=== PATIENT | female | born 1965 ===

== ENCOUNTER 2018-12-08 10:04 | Outpatient (CLI) | payer BC | END 2018-12-08 10:05 | disposition home or self-care (01) | LOC: C.PAT 10:04 | DX: Z30.2 Encounter for sterilization (principal); R10.2 Pelvic and perineal pain; D21.9 Benign neoplasm of connective and other soft tissue, unspecified ==

== ENCOUNTER 2018-12-16 07:03 | Inpatient (IN) | payer BC ==
[2018-12-08 10:34] VITALS: BMI 42.0
[2018-12-16] MEDS ORDERED: Bupivacaine 0.25% 20 ML INJ IJ ONE ×2 (09:13→15:55)
[2018-12-16] MEDS ORDERED: ceFAZolin 1 gm in NS 2 GM/200 ML BAG IVPB ONE ×2 (09:13→15:03)
[2018-12-16] MEDS ORDERED: Lidocaine/Epinephrine 1% 1:100000 10 ML IJ ONE (09:13)
[2018-12-16] MEDS ORDERED: Propofol 10 mg/ml Inj (20 ML) ONE (10:58)
[2018-12-16] MEDS ORDERED: Midazolam 2 MG/2 ML VIAL ONE ×2 (10:58→18:50)
[2018-12-16] MEDS ORDERED: Neostigmine 1:1000 (1 mg/ml) Inj ONE (16:56)
[2018-12-16] MEDS ORDERED: Lidocaine 2% MPF (5 ml) Inj ONE ×2 (17:31)
[2018-12-16] MEDS ORDERED: BUPIVACAINE 0.125%/0.9% NACL 600 ML IJ ONE (18:00)
[2018-12-16] MEDS ORDERED: Esmolol 100 mg/10ml Inj IV ONE (18:18)
--- NOTE | 2018-12-16 18:51 | PCM.SURG1 ---
Surgeon's Initial Post Op Note - Surgeon's Notes Surgeon: Marline Edwards MD Ladler: Chacha Matos Type of Anesthesia: General Endo Pre-Operative Diagnosis: Pelvic pain, abnormal uterine bleeding, pelvic pressure Operative Findings: Enlarged 20 week size >250gram multifibroid uterus, 12cm myoma 8cm myoma, normal fallopian tubes and ovaries, bladder adhesiosn to lower uteiren segment, extensive multiple omental adnesions to abominla wall, pelvic sidewall adhesions Post-Operative Diagnosis: as above, extenstive pelvic and abdominla wall adhesions, Operation Performed: Total robotic hysterectomy >250m gram multipfiboir, myomecotmy, bilaterla salpingoopherecotmy, lysis of extensive adhesions, bilateral uteral lysis , cystscopy b/l uretral stent placenmetn with IC green Specimen/Specimens Removed: uterus, multiple myomas, cervix, right and left fallopoian tubes and ovaries Estimated Blood Loss: EBL {In ML}: 250 Blood Products Given: N/A Post-Op Condition: Good Date of Surgery/Procedure: 12/16/18 Time of Surgery/Procedure: 11:30
[2018-12-16] MEDS ORDERED: Midazolam 2 MG/2 ML VIAL IVP PRN (19:00)
[2018-12-16] MEDS ORDERED: Propofol 10 mg/ml 1,000 MG/100 ML VIAL IV PRN (19:01)
[2018-12-16] MEDS ORDERED: HYDROmorphone 0.5 mg/0.5 ml ISec IVP PRN (19:04)
[2018-12-16] MEDS: Propofol 10 mg/ml 1,000 MG/100 ML VIAL IV PRN ×2 (19:30→22:47)
--- NOTE | 2018-12-16 20:00 | CP.PCM.CON ---
History of Present Illness - History of Present Illness History of Present Illness: Surgeon: Marline Edwards MD PMD: Emmy Joy MD Reason for consult: Critical care management Chief Comnplaint: Post Op Total Robotic Hysterectomy The Patient was seen and examined in the ICU post surgery. HPI: The hx was obtained from the medical staff and after [id number] of the Laboratory and medical records as the patient was sedated and intubated. This is a 53 years old female with hx of Diabetes Mellitus and uterine fibroids. She had complaints of Pelvic pain and pressure with abnormal uterine bleeding. Because of this she was scheduled for this elective Total Robotic Hysterectomy. The patient was brought to the ICU Intubated and sedated on Propofol. PMH: DM II; HTN; HLD; Cataract; Uterine fibroid; Abnormal uterine bleeding PSH: Ceserian Section SH: Never Smoked, No illegal drug Use; No Alcohol FH: Family hx not obtainable Allergies: NKDA Medication: Reviewed Review of Systems - Review of Systems Systems not reviewed;Unavailable: Intubated Review of Systems: Review of system limited because the patient is intubated and sedated. Past Patient History - Past Medical History & Family History Past Medical History?: Yes - Past Social History Smoking Status: Never Smoked Chewing Tobacco Use: No Cigar Use: No Alcohol: None Drugs: Denies - CARDIAC Hx Cardiac Disorders: Yes Hx Hypercholesterolemia: Yes Hx Hypertension: Yes - PULMONARY Hx Respiratory Disorders: No - NEUROLOGICAL Hx Neurological Disorder: No - HEENT Hx HEENT Problems: Yes Hx Cataracts: Yes (RIGHT EYE) - RENAL Hx Chronic Kidney Disease: No - ENDOCRINE/METABOLIC Hx Endocrine Disorders: Yes Hx Diabetes Mellitus Type 2: Yes - HEMATOLOGICAL/ONCOLOGICAL Hx Blood Disorders: No - INTEGUMENTARY Hx Dermatological Problems: No - MUSCULOSKELETAL/RHEUMATOLOGICAL Hx Musculoskeletal Disorders: No - GASTROINTESTINAL Hx Gastrointestinal Disorders: No - GENITOURINARY/GYNECOLOGICAL Hx Genitourinary Disorders: Yes Other/Comment: HX: FIBROID UTERUS - PSYCHIATRIC Hx Psychophysiologic Disorder: No - SURGICAL HISTORY Hx Surgeries: Yes Hx Section: Yes - ANESTHESIA Hx Anesthesia: Yes Hx Anesthesia Reactions: No Hx Malignant Hyperthermia: No Has any member of the family had a problem w/ anesthesia?: No Meds Allergies/Adverse Reactions: Allergies Allergy/AdvReac Type Severity Reaction Status Date / Time No Known Allergies Allergy Unverified 12/08/18 10:33 - Medications Medications: Current Medications Hydromorphone HCl (Dilaudid) 0.5 mg IVP Q5M PRN PRN Reason: Pain, severe (8-10) Stop: 12/16/18 21:04 BUPIVACAINE 0.125%/0.9% NACL (Bupivacaine-Ns 0.125% On-Q Supercharge Repair Supervisor) 600 mls @ 4 mls/hr IJ ONCE ONE Stop: 12/22/18 23:59 Propofol (Diprivan) 1,000 mg in 100 mls @ 2.83 mls/hr IV .Q24H PRN; Protocol PRN Reason: TITRATE PER MD ORDER Midazolam HCl (Versed Inj) 2 mg IVP ONCE PRN PRN Reason: Agitation/Restlessness Last Admin: 12/16/18 19:15 Dose: 2 mg Physical Exam - Constitutional Additional comments: Intubated and sedated. - Head Exam Head Exam: ATRAUMATIC, NORMAL INSPECTION, NORMOCEPHALIC - Eye Exam Additional comments: Pupils equal and reacting to light - ENT Exam ENT Exam: Mucous Membranes Moist, Normal External Ear Exam - Neck Exam Neck exam: Positive for: Full Rom, Normal Inspection. Negative for: Lymphadenopathy - Respiratory Exam Respiratory Exam: Clear to Auscultation Bilateral. absent: Rales, Rhonchi, Wheezes - Cardiovascular Exam Cardiovascular Exam: REGULAR RHYTHM, RRR, +S1, +S2. absent: Gallop, JVD - GI/Abdominal Exam GI & Abdominal Exam: Hypoactive Bowel Sounds, Soft Additional comments: Surgical site at mid pelvis, clean and dry. - Rectal Exam Rectal Exam: Deferred - Extremities Exam Extremities exam: Positive for: normal inspection. Negative for: pedal edema - Back Exam Back exam: NORMAL INSPECTION - Neurological Exam Additional comments: Sedated. No facial droop, moves both upper extremities when sedation low, - Psychiatric Exam Additional comments: Sedated, Intubated. - Skin Skin Exam: Intact, Normal Color, Warm Results - Vital Signs Recent Vital Signs: Last Vital Signs Temp 97.7 F 12/16/18 18:57 Pulse 86 12/16/18 18:57 Resp 15 12/16/18 18:57 BP 94/41 L 12/16/18 18:57 Pulse Ox 97 12/16/18 18:57 - Labs Result Diagrams: 12/16/18 19:56 12/16/18 19:56 Labs: Laboratory Results - last 24 hr 12/16/18 12/16/18 07:34 09:03 POC Glucose (mg/dL) 233 H Blood Type O POSITIVE Antibody Screen Negative - Imaging and Cardiology Chest x-ray Status: Image reviewed by me Additional comment: ET above leo Mild congestion Assessment & Plan - Assessment and Plan (Free Text) Plan: 53 years old female with hx of Diabetes Mellitus and uterine fibroids. She had complaints of Pelvic pain and pressure with abnormal uterine bleeding. Because of this she was scheduled for this elective Total Robotic Hysterectomy. #. Uterine Fibroid Operation Performed: Total robotic hysterectomy >250m gram multifibroid, myomecotmy, bilaterla salpingoopherecotmy, lysis of extensive adhesions, bilateral uteral lysis , cystscopy b/l uretral stent placement with IC katerine - Surgeon Marline Lindquist MD - Surgical management - Pain management with Fentanyl #. Respiratory Failure. Anesthesia wants patient to remain on the Ventilator because of the prolonged surgery - Vent Settings TV 400/ Rate of 12 / FiO2 of 60% and PEEP of 5 - Propofol for sedation - Follow ABG #. DM II with hyperglycemia - Lantus 20uts HS - Lispro insulin sliding scale according to accucheck #. HTN - Hold Amlodipine #. DVT Prophylaxis> SCD - Start Lovenox on 12/17/18 #. Code Status: Full - Date & Time Date: 12/16/18 Time: 20:00
[2018-12-16 20:09] LABS: BASO # 0.1 K/uL (0.0-0.2); BASO % 0.6 % (0.0-2.0); EOS % 0.2 % (0.0-4.0); HEMOGLOBIN 11.9 g/dL (11.0-16.0); LYMPH # 1.2 K/uL (1.0-4.3); MEAN CELL VOLUME 91.9 fL (81.0-99.0); MEAN CORPUSCULAR HEMOGLOBIN 29.8 pg (27.0-31.0); MEAN CORPUSCULAR HGB CONC 32.4 g/dL (33.0-37.0); MEAN PLATELET VOLUME 10.1 fL (7.2-11.7); MONO # 0.9 K/uL (0.0-0.8); MONO % 6.4 % (0.0-10.0); NEUT # 11.8 K/uL (1.8-7.0); RED CELL DISTRIBUTION WIDTH 14.3 % (11.5-14.5)
[2018-12-16 20:31] LABS: NEUT % 82.8 % (50.0-75.0)
[2018-12-16 20:35] LABS: ALB/GLOB RATIO 1.1 (1.0-2.1); ALBUMIN 2.7 g/dL (3.5-5.0); ALT/SGPT 19 U/L (9-52); AST/SGOT 22 U/L (14-36); BLOOD UREA NITROGEN 16 mg/dL (7-17); CALCIUM 7.8 mg/dl (8.6-10.4); GFR NON-AFRICAN AMERICAN 52
[2018-12-16] MEDS ORDERED: Midazolam 2 MG/2 ML VIAL IVP STA (20:47)
[2018-12-16] MEDS: (Lantus) Insulin Glargine, Recombinant SC SCH ×2 (20:56→23:10)
[2018-12-16] MEDS: Lactated Ringer's 1,000 ML IV SCH (21:54)
[2018-12-16] MEDS: Magnesium Sulfate 1 gm in D5W 1 GM/100 ML BAG IVPB SCH ×2 (21:59→22:29)
[2018-12-16 22:38] LABS: ARTERIAL BLOOD GAS HCO3 22.5 mmol/L (21-28); ARTERIAL BLOOD GAS O2 SAT 99.2 % (95-98); ARTERIAL BLOOD GAS PCO2 43 mm/Hg (35-45); ARTERIAL BLOOD GAS PH 7.33 (7.35-7.45); ARTERIAL BLOOD GAS PO2 132 mm/Hg (80-100)
[2018-12-16] MEDS ORDERED: (Novolog) Insulin Aspart, Recombinant 100 u/ml 10 ml vial SC STA (23:45)
[2018-12-17] MEDS: (Novolog) Insulin Aspart, Recombinant 100 u/ml 10 ml vial SC SCH ×4 (00:13→17:54)
[2018-12-17] MEDS: Propofol 10 mg/ml 1,000 MG/100 ML VIAL IV PRN (02:45)
[2018-12-17 05:39] LABS: ABG ALLEN TEST POS; ARTERIAL BLOOD GAS HCO3 21.7 mmol/L (21-28); ARTERIAL BLOOD GAS HEMOGLOBIN 12.5 g/dL (11.7-17.4); ARTERIAL BLOOD GAS O2 SAT 99.6 % (95-98); ARTERIAL BLOOD GAS PCO2 41 mm/Hg (35-45); ARTERIAL BLOOD GAS PH 7.33 (7.35-7.45); ARTERIAL BLOOD GAS PO2 218 mm/Hg (80-100); ARTERIAL BLOOD GAS TCO2 22.9 mmol/L (22-28)
[2018-12-17 06:21] LABS: BASO % 0.2 % (0.0-2.0); LYMPH # 1.3 K/uL (1.0-4.3); LYMPH % 10.6 % (20.0-40.0); MEAN CELL VOLUME 91.2 fL (81.0-99.0); MEAN CORPUSCULAR HGB CONC 32.9 g/dL (33.0-37.0); MEAN PLATELET VOLUME 10.3 fL (7.2-11.7); MONO % 8.8 % (0.0-10.0); NEUT # 9.6 K/uL (1.8-7.0); NEUT % 80.4 % (50.0-75.0); RBC 3.66 Mil/uL (3.80-5.20); RED CELL DISTRIBUTION WIDTH 14.5 % (11.5-14.5); WHITE BLOOD COUNT 11.9 K/uL (4.8-10.8)
[2018-12-17 07:02] LABS: ALB/GLOB RATIO 1.1 (1.0-2.1); ALBUMIN 2.5 g/dL (3.5-5.0); CALCIUM 7.4 mg/dl (8.6-10.4)
[2018-12-17] MEDS ORDERED: Sodium Chloride 0.9% 500 ML IV ONE ×2 (07:42→10:38)
--- NOTE | 2018-12-17 08:27 | RAD ---
Date of service: 12/16/2018 HISTORY: pt is intubated COMPARISON: No prior. TECHNIQUE: 1 view obtained. FINDINGS: In situ ETT, tip of which lies approximately 2.4 cm above leo. LUNGS: Poor inspiration with low lung volumes, crowded bronchovascular markings and mild bibasilar atelectasis. PLEURA: No significant pleural effusion identified, no pneumothorax apparent. CARDIOVASCULAR: No aortic atherosclerotic calcification present. Heart is mildly enlarged. No pulmonary vascular congestion. OSSEOUS STRUCTURES: Mild multilevel degenerative spondylosis of the thoracic spine. VISUALIZED UPPER ABDOMEN: Normal. OTHER FINDINGS: None. IMPRESSION: In situ ETT as above. Poor inspiration with low lung volumes, crowded bronchovascular markings and mild bibasilar atelectasis.
--- NOTE | 2018-12-17 08:54 | CP.PCM.PN ---
Subjective - Date & Time of Evaluation Date of Evaluation: 12/17/18 Time of Evaluation: 08:00 - Subjective Subjective: pt seen and examined +intubation, awake, alert. patient partner at bedise. pt with dereasing vent settings overnight. Pt has no complaints or expresses discomoort ath this time Objective - Vital Signs/Intake and Output Vital Signs (last 24 hours): Temp Pulse Resp BP Pulse Ox 98.7 F 110 H 11 L 97/49 L 100 12/17/18 08:00 12/17/18 08:00 12/17/18 08:00 12/17/18 08:00 12/17/18 08:00 Intake and Output: 12/17/18 12/17/18 06:59 18:59 Intake Total 1883.2 456.8 Output Total 675 15 Balance 1208.2 441.8 - Medications Medications: Current Medications BUPIVACAINE 0.125%/0.9% NACL (Bupivacaine-Ns 0.125% On-Q Heel Dipper) 600 mls @ 4 mls/hr IJ ONCE ONE Stop: 12/22/18 23:59 Last Admin: 12/16/18 20:47 Dose: Not Given Propofol (Diprivan) 1,000 mg in 100 mls @ 2.83 mls/hr IV .Q24H PRN; Protocol PRN Reason: TITRATE PER MD ORDER Last Titration: 12/17/18 08:15 Dose: 0 mcg/kg/min, 0 mls/hr Fentanyl Citrate 2,500 mcg/ (Sodium Chloride) 250 mls @ 18.87 mls/hr IV .[id number] CLAUDE; Protocol Last Titration: 12/17/18 08:41 Dose: 0 mcg/kg/hr, 0 mls/hr Lactated Ringer's (Lactated Ringer's) 1,000 mls @ 100 mls/hr IV .Q10H CLAUDE Stop: 12/17/18 17:44 Last Admin: 12/16/18 21:54 Dose: 100 mls/hr Insulin Aspart (Novolog) 0 unit SC Q6 CLAUDE; Protocol Last Admin: 12/17/18 05:51 Dose: 6 u Insulin Glargine (Lantus) 20 unit SC HS CLAUDE Last Admin: 12/16/18 23:10 Dose: Not Given Midazolam HCl (Versed Inj) 2 mg IVP ONCE PRN PRN Reason: Agitation/Restlessness Last Admin: 12/16/18 19:15 Dose: 2 mg - Labs Labs: 12/17/18 06:15 12/17/18 06:15 - Constitutional Appears: Well, Non-toxic - Head Exam Head Exam: ATRAUMATIC, NORMAL INSPECTION - Eye Exam Eye Exam: EOMI, Normal appearance - ENT Exam ENT Exam: Mucous Membranes Dry - Neck Exam Neck Exam: Full ROM - Respiratory Exam Respiratory Exam: Clear to Ausculation Bilateral, NORMAL BREATHING PATTERN Additional comments: +INTUBATION - Cardiovascular Exam Cardiovascular Exam: REGULAR RHYTHM, +S1, +S2 - GI/Abdominal Exam GI & Abdominal Exam: Soft, Normal Bowel Sounds Additional comments: obese, non tender, no guarding., rebound tenderness, no rigidty incisionc c/d/i +on que pump in place c//di +harley no vaginal bleeding - Extremities Exam Additional comments: +edema non tender, negative calf tendnerss, - Neurological Exam Neurological Exam: Alert, Awake - Psychiatric Exam Psychiatric exam: Normal Affect, Normal Mood - Skin Skin Exam: Dry, Intact, Normal Color Assessment and Plan (1) History of robot-assisted laparoscopic hysterectomy Assessment & Plan: 53 y/o s/p TRH BSO NANCY POD #1 in ICU -Respiratory status: +Intubation status managment as per ICU -DM: Meds as per ICU -HTN: As per ICU -DVT prophylaxis -Post Op Managment: consider dc harley,when extubated/stable consider ambulation of out bed, diet -Labs as per ICU Thank you for participating in the care of my patient. Please feel free to call me directly in any questions or concerns on my cell: [phone] Status: Acute (2) Diabetes Status: Acute (3) Hypertension Status: Acute (4) Endotracheally intubated Status: Acute
[2018-12-17] MEDS: Lactated Ringer's 1,000 ML IV SCH ×2 (09:42→22:34)
[2018-12-17] MEDS ORDERED: Albumin Human 5% (12.5 gm/250 ml) IV ONE (11:00)
--- NOTE | 2018-12-17 12:39 | US ---
Date of service: 12/17/2018 PROCEDURE: Ultrasound of the Kidneys HISTORY: s/p ureral stent ,rule out uretral obstruction COMPARISON: None available. TECHNIQUE: Sonogram of the kidneys. FINDINGS: RIGHT KIDNEY: Measures: 12.1 cm. Normal in size, contour and echogenicity. No stone, solid mass lesion or hydronephrosis visualized. LEFT KIDNEY: Measures: 11.9 cm. Normal in size, contour and echogenicity. No stone, solid mass lesion or hydronephrosis visualized. OTHER FINDINGS: None. IMPRESSION: No hydronephrosis or nephrolithiasis.
--- NOTE | 2018-12-17 15:20 | CP.CCUPN ---
<Doris Johnson - Last Filed: 12/17/18 15:08> CCU Subjective - Physician Review Subjective (Free Text): Overnight events noted Pt seen and examined this morning with Dr. Wynne. Intubated on MV with FIO2 60% Breathing does not appeared labored. Alert, following commands. Denies any pain or discomfort. Noted to have billious vomiting, NG tube placed. Critical Care Time Spent (in minutes): 35 CCU Objective - Vital Signs / Intake & Output Vital Signs (Last 4 hours): Vital Signs Temp Pulse Resp BP Pulse Ox 12/17/18 06:26 98 H 9 L 83/34 L 100 12/17/18 06:15 98 H 10 L 81/47 L 100 12/17/18 06:11 98 H 9 L 84/42 L 99 12/17/18 06:01 97 H 10 L 100 12/17/18 06:00 96 H 10 L 100 12/17/18 05:00 97 H 16 115/52 L 12/17/18 04:00 98.2 F 97 H 12 105/50 L 93 L Intake and Output (Last 8hrs): Intake & Output 12/16/18 12/17/18 12/17/18 22:59 06:59 14:59 Intake Total 931.9 1651.3 10 Output Total 350 325 Balance 581.9 1326.3 10 Weight 220 lb 3 oz Intake: IV 700 330 10 Intake, IV Amount 231.9 1321.3 Left Hand 74.1 199.5 Left Wrist 37.8 141.8 NQ 20 80 Right Hand 100 900 Output: Urine 350 325 Urethral (Joyce) 200 325 Other: Voiding Method Indwelling Catheter # Bowel Movements 0 0 - Physical Exam Head: Positive for: Atraumatic Pupils: Positive for: PERRL Extroacular Muscles: Positive for: EOMI Conjunctiva: Positive for: Normal Mouth: Positive for: Moist Mucous Membranes Respiratory/Chest: Positive for: Clear to Auscultation. Negative for: Respiratory Distress, Wheezes, Rales Cardiovascular: Positive for: Regular Rate and Rhythm. Negative for: Murmurs Abdomen: Positive for: Normal Bowel Sounds, Other (Surgical incision sites covered with gauze- clean, dry and intact. Mild tenderness w/o peritoneal signs. ) Lower Extremity: Positive for: Normal Inspection, NORMAL PULSES, Capillary Refill < 2 s. 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 12/22/18 23:59 Not Given ONCE ONE Propofol 1,000 mg in 100 mls @ 2.83 mls/hr 12/16/18 19:07 12/17/18 07:45 Diprivan IV 15.19 mcg/kg/min .Q24H PRN 8.6 mls/hr TITRATE PER MD ORDER Titration Protocol 5 MCG/KG/MIN Fentanyl Citrate 2,500 mcg/ 250 mls @ 18.87 mls/hr 12/16/18 20:45 12/17/18 06:33 Sodium Chloride IV 1 mcg/kg/hr .[id number] CLAUDE 9.5 mls/hr Titration Protocol 2 MCG/KG/HR Lactated Ringer's 1,000 mls @ 100 mls/hr 12/16/18 21:45 12/16/18 21:54 Lactated Ringer's IV 12/17/18 17:44 100 mls/hr .Q10H CLAUDE Administration Sodium Chloride 500 mls @ 1,000 mls/hr 12/17/18 07:42 Sodium Chloride 0.9% IV 12/17/18 08:11 .Q30M ONE Insulin Aspart 0 unit 12/17/18 00:00 12/17/18 05:51 Novolog SC 6 u Q6 CLAUDE Administration Protocol Insulin Glargine 20 unit 12/16/18 20:45 12/16/18 23:10 Lantus SC Not Given HS CLAUDE Midazolam HCl 2 mg 12/16/18 19:00 12/16/18 19:15 Versed Inj IVP 2 mg ONCE PRN Administration Agitation/Restlessness - Patient Studies Lab Studies: Lab Studies 12/17/18 12/17/18 12/17/18 Range/Units 06:15 06:15 05:24 WBC 11.9 H (4.8-10.8) K/uL RBC 3.66 L (3.80-5.20) Mil/uL Hgb 11.0 (11.0-16.0) g/dL Hct 33.4 L (34.0-47.0) % MCV 91.2 (81.0-99.0) fL MCH 30.0 (27.0-31.0) pg MCHC 32.9 L (33.0-37.0) g/dL RDW 14.5 (11.5-14.5) % Plt Count 291 (130-400) K/uL MPV 10.3 (7.2-11.7) fL Neut % (Auto) 80.4 H (50.0-75.0) % Lymph % (Auto) 10.6 L (20.0-40.0) % [place] % (Auto) 8.8 (0.0-10.0) % Eos % (Auto) 0.0 (0.0-4.0) % Baso % (Auto) 0.2 (0.0-2.0) % Neut # (Auto) 9.6 H (1.8-7.0) K/uL Lymph # (Auto) 1.3 (1.0-4.3) K/uL [place] # (Auto) 1.0 H (0.0-0.8) K/uL Eos # (Auto) 0.0 (0.0-0.7) K/uL Baso # (Auto) 0.0 (0.0-0.2) K/uL Puncture Site Rr pCO2 41 (35-45) mm/Hg pO2 218 H (80-100) mm/Hg HCO3 21.7 (21-28) mmol/L ABG pH 7.33 L (7.35-7.45) ABG Total CO2 22.9 (22-28) mmol/L ABG O2 Saturation 99.6 H (95-98) % ABG Base Excess -4.1 L (-2.0-3.0) mmol/L ABG Hemoglobin 12.5 (11.7-17.4) g/dL ABG Carboxyhemoglobin 1.4 (0.5-1.5) % POC ABG HHb (Measured) 0.4 (0.0-5.0) % ABG Methemoglobin 0.9 (0.0-3.0) % Hi Test Pos ABG Potassium (3.6-5.2) mmol/L A-a O2 Difference 159.0 mm/Hg Respiratory Index 0.7 Hgb O2 Saturation 97.2 (95.0-98.0) % Glucose (65-105) mg/dl Lactate (0.7-2.1) mmol/L Vent Mode Prvc Mechanical Rate 12 FiO2 60.0 % Tidal Volume 450 PEEP 5 Crit Value Called To Crit Value Called By Crit Value Read Back Blood Gas Notified Time Sodium 131 L (132-148) mmol/L Potassium 4.4 (3.6-5.2) mmol/L Chloride 103 (98-107) mmol/L Carbon Dioxide 21 L (22-30) mmol/L Anion Gap 11 (10-20) BUN 20 H (7-17) mg/dL Creatinine 1.6 H (0.7-1.2) mg/dL Est GFR ( Amer) 41 Est GFR (Non-Af Amer) 34 POC Glucose (mg/dL) (65-110) mg/dL Random Glucose 298 H D (65-105) mg/dL Calcium 7.4 L (8.6-10.4) mg/dl Phosphorus 3.8 (2.5-4.5) mg/dL Magnesium 2.1 (1.6-2.3) mg/dL Total Bilirubin 0.2 (0.2-1.3) mg/dL AST 21 (14-36) U/L ALT 13 (9-52) U/L Alkaline Phosphatase 68 (38-126) U/L Total Creatine Kinase (30-135) U/L Total Protein 4.8 L (6.3-8.3) g/dL Albumin 2.5 L (3.5-5.0) g/dL Globulin 2.3 (2.2-3.9) gm/dL Albumin/Globulin Ratio 1.1 (1.0-2.1) Arterial Blood Potassium (3.6-5.2) mmol/L Blood Type Antibody Screen 12/17/18 12/17/18 12/16/18 Range/Units 05:14 00:06 22:24 WBC (4.8-10.8) K/uL RBC (3.80-5.20) Mil/uL Hgb (11.0-16.0) g/dL Hct (34.0-47.0) % MCV (81.0-99.0) fL MCH (27.0-31.0) pg MCHC (33.0-37.0) g/dL RDW (11.5-14.5) % Plt Count (130-400) K/uL MPV (7.2-11.7) fL Neut % (Auto) (50.0-75.0) % Lymph % (Auto) (20.0-40.0) % [place] % (Auto) (0.0-10.0) % Eos % (Auto) (0.0-4.0) % Baso % (Auto) (0.0-2.0) % Neut # (Auto) (1.8-7.0) K/uL Lymph # (Auto) (1.0-4.3) K/uL [place] # (Auto) (0.0-0.8) K/uL Eos # (Auto) (0.0-0.7) K/uL Baso # (Auto) (0.0-0.2) K/uL Puncture Site Rra pCO2 43 (35-45) mm/Hg pO2 132 H (80-100) mm/Hg HCO3 22.5 (21-28) mmol/L ABG pH 7.33 L (7.35-7.45) ABG Total CO2 24.0 (22-28) mmol/L ABG O2 Saturation 99.2 H (95-98) % ABG Base Excess -3.2 L (-2.0-3.0) mmol/L ABG Hemoglobin (11.7-17.4) g/dL ABG Carboxyhemoglobin (0.5-1.5) % POC ABG HHb (Measured) (0.0-5.0) % ABG Methemoglobin (0.0-3.0) % Hi Test Na ABG Potassium 4.4 (3.6-5.2) mmol/L A-a O2 Difference 242.0 mm/Hg Respiratory Index 1.8 Hgb O2 Saturation (95.0-98.0) % Glucose 432 H* (65-105) mg/dl Lactate 1.8 (0.7-2.1) mmol/L Vent Mode Prvc Mechanical Rate 12 FiO2 60.0 % Tidal Volume 450 PEEP 5 Crit Value Called To Dr hayward icu Crit Value Called By Carmel Crit Value Read Back Y Blood Gas Notified Time 2238 Sodium 136.0 (132-148) mmol/L Potassium (3.6-5.2) mmol/L Chloride 105.0 (98-107) mmol/L Carbon Dioxide (22-30) mmol/L Anion Gap (10-20) BUN (7-17) mg/dL Creatinine (0.7-1.2) mg/dL Est GFR ( Amer) Est GFR (Non-Af Amer) POC Glucose (mg/dL) 338 H 443 H* (65-110) mg/dL Random Glucose (65-105) mg/dL Calcium (8.6-10.4) mg/dl Phosphorus (2.5-4.5) mg/dL Magnesium (1.6-2.3) mg/dL Total Bilirubin (0.2-1.3) mg/dL AST (14-36) U/L ALT (9-52) U/L Alkaline Phosphatase (38-126) U/L Total Creatine Kinase (30-135) U/L Total Protein (6.3-8.3) g/dL Albumin (3.5-5.0) g/dL Globulin (2.2-3.9) gm/dL Albumin/Globulin Ratio (1.0-2.1) Arterial Blood Potassium 4.4 (3.6-5.2) mmol/L Blood Type Antibody Screen 12/16/18 12/16/18 12/16/18 Range/Units 19:56 19:56 19:56 WBC 14.0 H D (4.8-10.8) K/uL RBC 4.00 (3.80-5.20) Mil/uL Hgb 11.9 (11.0-16.0) g/dL Hct 36.8 (34.0-47.0) % MCV 91.9 D (81.0-99.0) fL MCH 29.8 (27.0-31.0) pg MCHC 32.4 L (33.0-37.0) g/dL RDW 14.3 (11.5-14.5) % Plt Count 308 (130-400) K/uL MPV 10.1 (7.2-11.7) fL Neut % (Auto) 82.8 H (50.0-75.0) % Lymph % (Auto) 10.0 L (20.0-40.0) % [place] % (Auto) 6.4 (0.0-10.0) % Eos % (Auto) 0.2 (0.0-4.0) % Baso % (Auto) 0.6 (0.0-2.0) % Neut # (Auto) 11.8 H (1.8-7.0) K/uL Lymph # (Auto) 1.2 (1.0-4.3) K/uL [place] # (Auto) 0.9 H (0.0-0.8) K/uL Eos # (Auto) 0.0 (0.0-0.7) K/uL Baso # (Auto) 0.1 (0.0-0.2) K/uL Puncture Site pCO2 (35-45) mm/Hg pO2 (80-100) mm/Hg HCO3 (21-28) mmol/L ABG pH (7.35-7.45) ABG Total CO2 (22-28) mmol/L ABG O2 Saturation (95-98) % ABG Base Excess (-2.0-3.0) mmol/L ABG Hemoglobin (11.7-17.4) g/dL ABG Carboxyhemoglobin (0.5-1.5) % POC ABG HHb (Measured) (0.0-5.0) % ABG Methemoglobin (0.0-3.0) % Hi Test ABG Potassium (3.6-5.2) mmol/L A-a O2 Difference mm/Hg Respiratory Index Hgb O2 Saturation (95.0-98.0) % Glucose (65-105) mg/dl Lactate (0.7-2.1) mmol/L Vent Mode Mechanical Rate FiO2 % Tidal Volume PEEP Crit Value Called To Crit Value Called By Crit Value Read Back Blood Gas Notified Time Sodium 133 (132-148) mmol/L Potassium 4.4 (3.6-5.2) mmol/L Chloride 104 (98-107) mmol/L Carbon Dioxide 20 L (22-30) mmol/L Anion Gap 13 (10-20) BUN 16 (7-17) mg/dL Creatinine 1.1 (0.7-1.2) mg/dL Est GFR ( Amer) > 60 Est GFR (Non-Af Amer) 52 POC Glucose (mg/dL) (65-110) mg/dL Random Glucose 441 H* D (65-105) mg/dL Calcium 7.8 L (8.6-10.4) mg/dl Phosphorus 4.3 (2.5-4.5) mg/dL Magnesium 1.4 L (1.6-2.3) mg/dL Total Bilirubin 0.2 (0.2-1.3) mg/dL AST 22 (14-36) U/L ALT 19 (9-52) U/L Alkaline Phosphatase 83 (38-126) U/L Total Creatine Kinase 156 H (30-135) U/L Total Protein 5.1 L (6.3-8.3) g/dL Albumin 2.7 L (3.5-5.0) g/dL Globulin 2.4 (2.2-3.9) gm/dL Albumin/Globulin Ratio 1.1 (1.0-2.1) Arterial Blood Potassium (3.6-5.2) mmol/L Blood Type Antibody Screen 12/16/18 Range/Units 09:03 WBC (4.8-10.8) K/uL RBC (3.80-5.20) Mil/uL Hgb (11.0-16.0) g/dL Hct (34.0-47.0) % MCV (81.0-99.0) fL MCH (27.0-31.0) pg MCHC (33.0-37.0) g/dL RDW (11.5-14.5) % Plt Count (130-400) K/uL MPV (7.2-11.7) fL Neut % (Auto) (50.0-75.0) % Lymph % (Auto) (20.0-40.0) % [place] % (Auto) (0.0-10.0) % Eos % (Auto) (0.0-4.0) % Baso % (Auto) (0.0-2.0) % Neut # (Auto) (1.8-7.0) K/uL Lymph # (Auto) (1.0-4.3) K/uL [place] # (Auto) (0.0-0.8) K/uL Eos # (Auto) (0.0-0.7) K/uL Baso # (Auto) (0.0-0.2) K/uL Puncture Site pCO2 (35-45) mm/Hg pO2 (80-100) mm/Hg HCO3 (21-28) mmol/L ABG pH (7.35-7.45) ABG Total CO2 (22-28) mmol/L ABG O2 Saturation (95-98) % ABG Base Excess (-2.0-3.0) mmol/L ABG Hemoglobin (11.7-17.4) g/dL ABG Carboxyhemoglobin (0.5-1.5) % POC ABG HHb (Measured) (0.0-5.0) % ABG Methemoglobin (0.0-3.0) % Hi Test ABG Potassium (3.6-5.2) mmol/L A-a O2 Difference mm/Hg Respiratory Index Hgb O2 Saturation (95.0-98.0) % Glucose (65-105) mg/dl Lactate (0.7-2.1) mmol/L Vent Mode Mechanical Rate FiO2 % Tidal Volume PEEP Crit Value Called To Crit Value Called By Crit Value Read Back Blood Gas Notified Time Sodium (132-148) mmol/L Potassium (3.6-5.2) mmol/L Chloride (98-107) mmol/L Carbon Dioxide (22-30) mmol/L Anion Gap (10-20) BUN (7-17) mg/dL Creatinine (0.7-1.2) mg/dL Est GFR ( Amer) Est GFR (Non-Af Amer) POC Glucose (mg/dL) (65-110) mg/dL Random Glucose (65-105) mg/dL Calcium (8.6-10.4) mg/dl Phosphorus (2.5-4.5) mg/dL Magnesium (1.6-2.3) mg/dL Total Bilirubin (0.2-1.3) mg/dL AST (14-36) U/L ALT (9-52) U/L Alkaline Phosphatase (38-126) U/L Total Creatine Kinase (30-135) U/L Total Protein (6.3-8.3) g/dL Albumin (3.5-5.0) g/dL Globulin (2.2-3.9) gm/dL Albumin/Globulin Ratio (1.0-2.1) Arterial Blood Potassium (3.6-5.2) mmol/L Blood Type O POSITIVE Antibody Screen Negative Laboratory Results - last 24 hr 12/16/18 12/16/18 12/16/18 09:03 19:56 19:56 WBC RBC Hgb Hct MCV MCH MCHC RDW Plt Count MPV Neut % (Auto) Lymph % (Auto) [place] % (Auto) Eos % (Auto) Baso % (Auto) Neut # (Auto) Lymph # (Auto) [place] # (Auto) Eos # (Auto) Baso # (Auto) Puncture Site pCO2 pO2 HCO3 ABG pH ABG Total CO2 ABG O2 Saturation ABG Base Excess ABG Hemoglobin ABG Carboxyhemoglobin POC ABG HHb (Measured) ABG Methemoglobin Hi Test ABG Potassium A-a O2 Difference Respiratory Index Hgb O2 Saturation Glucose Lactate Vent Mode Mechanical Rate FiO2 Tidal Volume PEEP Crit Value Called To Crit Value Called By Crit Value Read Back Blood Gas Notified Time Sodium 133 Potassium 4.4 Chloride 104 Carbon Dioxide 20 L Anion Gap 13 BUN 16 Creatinine 1.1 Est GFR ( Amer) > 60 Est GFR (Non-Af Amer) 52 POC Glucose (mg/dL) Random Glucose 441 H* D Calcium 7.8 L Phosphorus 4.3 Magnesium 1.4 L Total Bilirubin 0.2 AST 22 ALT 19 Alkaline Phosphatase 83 Total Creatine Kinase 156 H Total Protein 5.1 L Albumin 2.7 L Globulin 2.4 Albumin/Globulin Ratio 1.1 Arterial Blood Potassium Blood Type O POSITIVE Antibody Screen Negative 12/16/18 12/16/18 12/17/18 19:56 22:24 00:06 WBC 14.0 H D RBC 4.00 Hgb 11.9 Hct 36.8 MCV 91.9 D MCH 29.8 MCHC 32.4 L RDW 14.3 Plt Count 308 MPV 10.1 Neut % (Auto) 82.8 H Lymph % (Auto) 10.0 L [place] % (Auto) 6.4 Eos % (Auto) 0.2 Baso % (Auto) 0.6 Neut # (Auto) 11.8 H Lymph # (Auto) 1.2 [place] # (Auto) 0.9 H Eos # (Auto) 0.0 Baso # (Auto) 0.1 Puncture Site Rra pCO2 43 pO2 132 H HCO3 22.5 ABG pH 7.33 L ABG Total CO2 24.0 ABG O2 Saturation 99.2 H ABG Base Excess -3.2 L ABG Hemoglobin ABG Carboxyhemoglobin POC ABG HHb (Measured) ABG Methemoglobin Hi Test Na ABG Potassium 4.4 A-a O2 Difference 242.0 Respiratory Index 1.8 Hgb O2 Saturation Glucose 432 H* Lactate 1.8 Vent Mode Prvc Mechanical Rate 12 FiO2 60.0 Tidal Volume 450 PEEP 5 Crit Value Called To Dr hayward icu Crit Value Called By Carmel Crit Value Read Back Y Blood Gas Notified Time 2237 Sodium 136.0 Potassium Chloride 105.0 Carbon Dioxide Anion Gap BUN Creatinine Est GFR ( Amer) Est GFR (Non-Af Amer) POC Glucose (mg/dL) 443 H* Random Glucose Calcium Phosphorus Magnesium Total Bilirubin AST ALT Alkaline Phosphatase Total Creatine Kinase Total Protein Albumin Globulin Albumin/Globulin Ratio Arterial Blood Potassium 4.4 Blood Type Antibody Screen 12/17/18 12/17/18 12/17/18 05:14 05:24 06:15 WBC 11.9 H RBC 3.66 L Hgb 11.0 Hct 33.4 L MCV 91.2 MCH 30.0 MCHC 32.9 L RDW 14.5 Plt Count 291 MPV 10.3 Neut % (Auto) 80.4 H Lymph % (Auto) 10.6 L [place] % (Auto) 8.8 Eos % (Auto) 0.0 Baso % (Auto) 0.2 Neut # (Auto) 9.6 H Lymph # (Auto) 1.3 [place] # (Auto) 1.0 H Eos # (Auto) 0.0 Baso # (Auto) 0.0 Puncture Site Rr pCO2 41 pO2 218 H HCO3 21.7 ABG pH 7.33 L ABG Total CO2 22.9 ABG O2 Saturation 99.6 H ABG Base Excess -4.1 L ABG Hemoglobin 12.5 ABG Carboxyhemoglobin 1.4 POC ABG HHb (Measured) 0.4 ABG Methemoglobin 0.9 Hi Test Pos ABG Potassium A-a O2 Difference 159.0 Respiratory Index 0.7 Hgb O2 Saturation 97.2 Glucose Lactate Vent Mode Prvc Mechanical Rate 12 FiO2 60.0 Tidal Volume 450 PEEP 5 Crit Value Called To Crit Value Called By Crit Value Read Back Blood Gas Notified Time Sodium Potassium Chloride Carbon Dioxide Anion Gap BUN Creatinine Est GFR ( Amer) Est GFR (Non-Af Amer) POC Glucose (mg/dL) 338 H Random Glucose Calcium Phosphorus Magnesium Total Bilirubin AST ALT Alkaline Phosphatase Total Creatine Kinase Total Protein Albumin Globulin Albumin/Globulin Ratio Arterial Blood Potassium Blood Type Antibody Screen 12/17/18 06:15 WBC RBC Hgb Hct MCV MCH MCHC RDW Plt Count MPV Neut % (Auto) Lymph % (Auto) [place] % (Auto) Eos % (Auto) Baso % (Auto) Neut # (Auto) Lymph # (Auto) [place] # (Auto) Eos # (Auto) Baso # (Auto) Puncture Site pCO2 pO2 HCO3 ABG pH ABG Total CO2 ABG O2 Saturation ABG Base Excess ABG Hemoglobin ABG Carboxyhemoglobin POC ABG HHb (Measured) ABG Methemoglobin Hi Test ABG Potassium A-a O2 Difference Respiratory Index Hgb O2 Saturation Glucose Lactate Vent Mode Mechanical Rate FiO2 Tidal Volume PEEP Crit Value Called To Crit Value Called By Crit Value Read Back Blood Gas Notified Time Sodium 131 L Potassium 4.4 Chloride 103 Carbon Dioxide 21 L Anion Gap 11 BUN 20 H Creatinine 1.6 H Est GFR ( Amer) 41 Est GFR (Non-Af Amer) 34 POC Glucose (mg/dL) Random Glucose 298 H D Calcium 7.4 L Phosphorus 3.8 Magnesium 2.1 Total Bilirubin 0.2 AST 21 ALT 13 Alkaline Phosphatase 68 Total Creatine Kinase Total Protein 4.8 L Albumin 2.5 L Globulin 2.3 Albumin/Globulin Ratio 1.1 Arterial Blood Potassium Blood Type Antibody Screen Fingerstick Blood Sugar Results: 338 Critical Care Progress Note - Nutrition Nutrition: Nutrition Category Date Time Status NPO Diet [DIET] Diets 12/16/18 Dinner Active Assessment/Plan - Assessment and Plan (Free Text) Assessment: 53 years old female with hx of Diabetes Mellitus and uterine fibroids. She had complaints of Pelvic pain and pressure with abnormal uterine bleeding. Because of this she was scheduled for this elective Total Robotic Hysterectomy. Pt was taken to OR and had total hysterectomy w/ bilateral salpingoophorectomy, lysis of adhesions, bilateral uteral lysis, and uretral stent placement. She was remained on the ventilator postoperatively for close monitoring. Head - AOx3 - Not on any sedatives, Fentanyl discontinued this am Cardiac - Hemodynamically stable, tachy in 100's Pulm - Respiratory Failure MV TV 400/ Rate of 12 / FiO2 of 40% and PEEP of 5 - CPAP Weaning trials. Will extubate if pt does well on trials GI - NPO - Zofran prn for vomiting - NG tube on low continuous suction [employer] -S/P Total robotic hysterectomy >250m gram multifibroid, myomecotmy, bilaterla salpingoopherecotmy, lysis of extensive adhesions, bilateral uteral lysis , cystscopy b/l uretral stent placement with IC katerine - Surgeon Marline Lindquist MD - Surgical management - Pain management with Fentanyl #. DM II with hyperglycemia - Lantus 20uts HS - Lispro insulin sliding scale according to accucheck #. DVT Prophylaxis - SCD - Lovenox #. Code Status: Full Discussed case with Dr. Ricci Johnson, PGY2 <Darshan Wynne S - Last Filed: 12/17/18 18:06> CCU Objective - Vital Signs / Intake & Output Vital Signs (Last 4 hours): Vital Signs Temp Pulse Resp BP Pulse Ox 12/17/18 16:00 98.9 F 118 H 18 125/56 L 100 12/17/18 15:00 112 H 9 L 137/60 100 Intake and Output (Last 8hrs): Intake & Output 12/17/18 12/17/18 12/17/18 06:59 14:59 22:59 Intake Total 1651.3 2116.8 220 Output Total 325 205 100 Balance 1326.3 1911.8 120 Weight 220 lb 3 oz Intake: IV 330 78 Intake, IV Amount 1321.3 2038.8 220 Left Hand 199.5 39.8 Left Wrist 141.8 19.0 NQ 80 80 20 R hand 1000 Right Hand 900 900 200 Output: Urine 325 205 100 Urethral (Joyce) 325 205 100 Other: # Bowel Movements 0 - Medications Active Medications: Active Medications Generic Name Dose Route Start Last Admin Trade Name Freq PRN Reason Stop Dose Admin Enoxaparin Sodium 40 mg 12/17/18 17:00 12/17/18 17:27 Lovenox SC 40 mg DAILY CLAUDE Administration BUPIVACAINE 0.125%/0.9% NACL 600 mls @ 4 mls/hr 12/16/18 18:00 12/16/18 20:47 Bupivacaine-Ns 0.125% 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 12/22/18 23:59 Not Given ONCE ONE Insulin Aspart 0 unit 12/17/18 00:00 12/17/18 17:54 Novolog SC 3 u Q6 CLAUDE Administration Protocol Insulin Glargine 20 unit 12/16/18 20:45 12/16/18 23:10 Lantus SC Not Given HS CLAUDE Midazolam HCl 2 mg 12/16/18 19:00 12/16/18 19:15 Versed Inj IVP 2 mg ONCE PRN Administration Agitation/Restlessness Ondansetron HCl 4 mg 12/17/18 16:56 Zofran Inj IVP Q6H PRN Nausea/Vomiting Pantoprazole Sodium 40 mg 12/17/18 14:30 12/17/18 14:45 Protonix Inj IVP 40 mg DAILY CLAUDE Administration - Patient Studies Lab Studies: Lab Studies 12/17/18 12/17/18 12/17/18 Range/Units 17:40 11:35 06:15 WBC (4.8-10.8) K/uL RBC (3.80-5.20) Mil/uL Hgb (11.0-16.0) g/dL Hct (34.0-47.0) % MCV (81.0-99.0) fL MCH (27.0-31.0) pg MCHC (33.0-37.0) g/dL RDW (11.5-14.5) % Plt Count (130-400) K/uL MPV (7.2-11.7) fL Neut % (Auto) (50.0-75.0) % Lymph % (Auto) (20.0-40.0) % [place] % (Auto) (0.0-10.0) % Eos % (Auto) (0.0-4.0) % Baso % (Auto) (0.0-2.0) % Neut # (Auto) (1.8-7.0) K/uL Lymph # (Auto) (1.0-4.3) K/uL [place] # (Auto) (0.0-0.8) K/uL Eos # (Auto) (0.0-0.7) K/uL Baso # (Auto) (0.0-0.2) K/uL Puncture Site pCO2 (35-45) mm/Hg pO2 (80-100) mm/Hg HCO3 (21-28) mmol/L ABG pH (7.35-7.45) ABG Total CO2 (22-28) mmol/L ABG O2 Saturation (95-98) % ABG Base Excess (-2.0-3.0) mmol/L ABG Hemoglobin (11.7-17.4) g/dL ABG Carboxyhemoglobin (0.5-1.5) % POC ABG HHb (Measured) (0.0-5.0) % ABG Methemoglobin (0.0-3.0) % Hi Test ABG Potassium (3.6-5.2) mmol/L A-a O2 Difference mm/Hg Respiratory Index Hgb O2 Saturation (95.0-98.0) % Glucose (65-105) mg/dl Lactate (0.7-2.1) mmol/L Vent Mode Mechanical Rate FiO2 % Tidal Volume PEEP Crit Value Called To Crit Value Called By Crit Value Read Back Blood Gas Notified Time Sodium 131 L (132-148) mmol/L Potassium 4.4 (3.6-5.2) mmol/L Chloride 103 (98-107) mmol/L Carbon Dioxide 21 L (22-30) mmol/L Anion Gap 11 (10-20) BUN 20 H (7-17) mg/dL Creatinine 1.6 H (0.7-1.2) mg/dL Est GFR ( Amer) 41 Est GFR (Non-Af Amer) 34 POC Glucose (mg/dL) 233 H 207 H (65-110) mg/dL Random Glucose 298 H D (65-105) mg/dL Calcium 7.4 L (8.6-10.4) mg/dl Phosphorus 3.8 (2.5-4.5) mg/dL Magnesium 2.1 (1.6-2.3) mg/dL Total Bilirubin 0.2 (0.2-1.3) mg/dL AST 21 (14-36) U/L ALT 13 (9-52) U/L Alkaline Phosphatase 68 (38-126) U/L Total Creatine Kinase (30-135) U/L Total Protein 4.8 L (6.3-8.3) g/dL Albumin 2.5 L (3.5-5.0) g/dL Globulin 2.3 (2.2-3.9) gm/dL Albumin/Globulin Ratio 1.1 (1.0-2.1) Arterial Blood Potassium (3.6-5.2) mmol/L 12/17/18 12/17/18 12/17/18 Range/Units 06:15 05:24 05:14 WBC 11.9 H (4.8-10.8) K/uL RBC 3.66 L (3.80-5.20) Mil/uL Hgb 11.0 (11.0-16.0) g/dL Hct 33.4 L (34.0-47.0) % MCV 91.2 (81.0-99.0) fL MCH 30.0 (27.0-31.0) pg MCHC 32.9 L (33.0-37.0) g/dL RDW 14.5 (11.5-14.5) % Plt Count 291 (130-400) K/uL MPV 10.3 (7.2-11.7) fL Neut % (Auto) 80.4 H (50.0-75.0) % Lymph % (Auto) 10.6 L (20.0-40.0) % [place] % (Auto) 8.8 (0.0-10.0) % Eos % (Auto) 0.0 (0.0-4.0) % Baso % (Auto) 0.2 (0.0-2.0) % Neut # (Auto) 9.6 H (1.8-7.0) K/uL Lymph # (Auto) 1.3 (1.0-4.3) K/uL [place] # (Auto) 1.0 H (0.0-0.8) K/uL Eos # (Auto) 0.0 (0.0-0.7) K/uL Baso # (Auto) 0.0 (0.0-0.2) K/uL Puncture Site Rr pCO2 41 (35-45) mm/Hg pO2 218 H (80-100) mm/Hg HCO3 21.7 (21-28) mmol/L ABG pH 7.33 L (7.35-7.45) ABG Total CO2 22.9 (22-28) mmol/L ABG O2 Saturation 99.6 H (95-98) % ABG Base Excess -4.1 L (-2.0-3.0) mmol/L ABG Hemoglobin 12.5 (11.7-17.4) g/dL ABG Carboxyhemoglobin 1.4 (0.5-1.5) % POC ABG HHb (Measured) 0.4 (0.0-5.0) % ABG Methemoglobin 0.9 (0.0-3.0) % Hi Test Pos ABG Potassium (3.6-5.2) mmol/L A-a O2 Difference 159.0 mm/Hg Respiratory Index 0.7 Hgb O2 Saturation 97.2 (95.0-98.0) % Glucose (65-105) mg/dl Lactate (0.7-2.1) mmol/L Vent Mode Prvc Mechanical Rate 12 FiO2 60.0 % Tidal Volume 450 PEEP 5 Crit Value Called To Crit Value Called By Crit Value Read Back Blood Gas Notified Time Sodium (132-148) mmol/L Potassium (3.6-5.2) mmol/L Chloride (98-107) mmol/L Carbon Dioxide (22-30) mmol/L Anion Gap (10-20) BUN (7-17) mg/dL Creatinine (0.7-1.2) mg/dL Est GFR ( Amer) Est GFR (Non-Af Amer) POC Glucose (mg/dL) 338 H (65-110) mg/dL Random Glucose (65-105) mg/dL Calcium (8.6-10.4) mg/dl Phosphorus (2.5-4.5) mg/dL Magnesium (1.6-2.3) mg/dL Total Bilirubin (0.2-1.3) mg/dL AST (14-36) U/L ALT (9-52) U/L Alkaline Phosphatase (38-126) U/L Total Creatine Kinase (30-135) U/L Total Protein (6.3-8.3) g/dL Albumin (3.5-5.0) g/dL Globulin (2.2-3.9) gm/dL Albumin/Globulin Ratio (1.0-2.1) Arterial Blood Potassium (3.6-5.2) mmol/L 12/17/18 12/16/18 12/16/18 Range/Units 00:06 22:24 19:56 WBC 14.0 H D (4.8-10.8) K/uL RBC 4.00 (3.80-5.20) Mil/uL Hgb 11.9 (11.0-16.0) g/dL Hct 36.8 (34.0-47.0) % MCV 91.9 D (81.0-99.0) fL MCH 29.8 (27.0-31.0) pg MCHC 32.4 L (33.0-37.0) g/dL RDW 14.3 (11.5-14.5) % Plt Count 308 (130-400) K/uL MPV 10.1 (7.2-11.7) fL Neut % (Auto) 82.8 H (50.0-75.0) % Lymph % (Auto) 10.0 L (20.0-40.0) % [place] % (Auto) 6.4 (0.0-10.0) % Eos % (Auto) 0.2 (0.0-4.0) % Baso % (Auto) 0.6 (0.0-2.0) % Neut # (Auto) 11.8 H (1.8-7.0) K/uL Lymph # (Auto) 1.2 (1.0-4.3) K/uL [place] # (Auto) 0.9 H (0.0-0.8) K/uL Eos # (Auto) 0.0 (0.0-0.7) K/uL Baso # (Auto) 0.1 (0.0-0.2) K/uL Puncture Site Rra pCO2 43 (35-45) mm/Hg pO2 132 H (80-100) mm/Hg HCO3 22.5 (21-28) mmol/L ABG pH 7.33 L (7.35-7.45) ABG Total CO2 24.0 (22-28) mmol/L ABG O2 Saturation 99.2 H (95-98) % ABG Base Excess -3.2 L (-2.0-3.0) mmol/L ABG Hemoglobin (11.7-17.4) g/dL ABG Carboxyhemoglobin (0.5-1.5) % POC ABG HHb (Measured) (0.0-5.0) % ABG Methemoglobin (0.0-3.0) % Hi Test Na ABG Potassium 4.4 (3.6-5.2) mmol/L A-a O2 Difference 242.0 mm/Hg Respiratory Index 1.8 Hgb O2 Saturation (95.0-98.0) % Glucose 432 H* (65-105) mg/dl Lactate 1.8 (0.7-2.1) mmol/L Vent Mode Prvc Mechanical Rate 12 FiO2 60.0 % Tidal Volume 450 PEEP 5 Crit Value Called To Dr hayward icu Crit Value Called By [place] Crit Value Read Back Y Blood Gas Notified Time 2238 Sodium 136.0 (132-148) mmol/L Potassium (3.6-5.2) mmol/L Chloride 105.0 (98-107) mmol/L Carbon Dioxide (22-30) mmol/L Anion Gap (10-20) BUN (7-17) mg/dL Creatinine (0.7-1.2) mg/dL Est GFR ( Amer) Est GFR (Non-Af Amer) POC Glucose (mg/dL) 443 H* (65-110) mg/dL Random Glucose (65-105) mg/dL Calcium (8.6-10.4) mg/dl Phosphorus (2.5-4.5) mg/dL Magnesium (1.6-2.3) mg/dL Total Bilirubin (0.2-1.3) mg/dL AST (14-36) U/L ALT (9-52) U/L Alkaline Phosphatase (38-126) U/L Total Creatine Kinase (30-135) U/L Total Protein (6.3-8.3) g/dL Albumin (3.5-5.0) g/dL Globulin (2.2-3.9) gm/dL Albumin/Globulin Ratio (1.0-2.1) Arterial Blood Potassium 4.4 (3.6-5.2) mmol/L 12/16/18 12/16/18 Range/Units 19:56 19:56 WBC (4.8-10.8) K/uL RBC (3.80-5.20) Mil/uL Hgb (11.0-16.0) g/dL Hct (34.0-47.0) % MCV (81.0-99.0) fL MCH (27.0-31.0) pg MCHC (33.0-37.0) g/dL RDW (11.5-14.5) % Plt Count (130-400) K/uL MPV (7.2-11.7) fL Neut % (Auto) (50.0-75.0) % Lymph % (Auto) (20.0-40.0) % [place] % (Auto) (0.0-10.0) % Eos % (Auto) (0.0-4.0) % Baso % (Auto) (0.0-2.0) % Neut # (Auto) (1.8-7.0) K/uL Lymph # (Auto) (1.0-4.3) K/uL [place] # (Auto) (0.0-0.8) K/uL Eos # (Auto) (0.0-0.7) K/uL Baso # (Auto) (0.0-0.2) K/uL Puncture Site pCO2 (35-45) mm/Hg pO2 (80-100) mm/Hg HCO3 (21-28) mmol/L ABG pH (7.35-7.45) ABG Total CO2 (22-28) mmol/L ABG O2 Saturation (95-98) % ABG Base Excess (-2.0-3.0) mmol/L ABG Hemoglobin (11.7-17.4) g/dL ABG Carboxyhemoglobin (0.5-1.5) % POC ABG HHb (Measured) (0.0-5.0) % ABG Methemoglobin (0.0-3.0) % Hi Test ABG Potassium (3.6-5.2) mmol/L A-a O2 Difference mm/Hg Respiratory Index Hgb O2 Saturation (95.0-98.0) % Glucose (65-105) mg/dl Lactate (0.7-2.1) mmol/L Vent Mode Mechanical Rate FiO2 % Tidal Volume PEEP Crit Value Called To Crit Value Called By Crit Value Read Back Blood Gas Notified Time Sodium 133 (132-148) mmol/L Potassium 4.4 (3.6-5.2) mmol/L Chloride 104 (98-107) mmol/L Carbon Dioxide 20 L (22-30) mmol/L Anion Gap 13 (10-20) BUN 16 (7-17) mg/dL Creatinine 1.1 (0.7-1.2) mg/dL Est GFR ( Amer) > 60 Est GFR (Non-Af Amer) 52 POC Glucose (mg/dL) (65-110) mg/dL Random Glucose 441 H* D (65-105) mg/dL Calcium 7.8 L (8.6-10.4) mg/dl Phosphorus 4.3 (2.5-4.5) mg/dL Magnesium 1.4 L (1.6-2.3) mg/dL Total Bilirubin 0.2 (0.2-1.3) mg/dL AST 22 (14-36) U/L ALT 19 (9-52) U/L Alkaline Phosphatase 83 (38-126) U/L Total Creatine Kinase 156 H (30-135) U/L Total Protein 5.1 L (6.3-8.3) g/dL Albumin 2.7 L (3.5-5.0) g/dL Globulin 2.4 (2.2-3.9) gm/dL Albumin/Globulin Ratio 1.1 (1.0-2.1) Arterial Blood Potassium (3.6-5.2) mmol/L Laboratory Results - last 24 hr 12/16/18 12/16/18 12/16/18 19:56 19:56 19:56 WBC 14.0 H D RBC 4.00 Hgb 11.9 Hct 36.8 MCV 91.9 D MCH 29.8 MCHC 32.4 L RDW 14.3 Plt Count 308 MPV 10.1 Neut % (Auto) 82.8 H Lymph % (Auto) 10.0 L [place] % (Auto) 6.4 Eos % (Auto) 0.2 Baso % (Auto) 0.6 Neut # (Auto) 11.8 H Lymph # (Auto) 1.2 [place] # (Auto) 0.9 H Eos # (Auto) 0.0 Baso # (Auto) 0.1 Puncture Site pCO2 pO2 HCO3 ABG pH ABG Total CO2 ABG O2 Saturation ABG Base Excess ABG Hemoglobin ABG Carboxyhemoglobin POC ABG HHb (Measured) ABG Methemoglobin Hi Test ABG Potassium A-a O2 Difference Respiratory Index Hgb O2 Saturation Glucose Lactate Vent Mode Mechanical Rate FiO2 Tidal Volume PEEP Crit Value Called To Crit Value Called By Crit Value Read Back Blood Gas Notified Time Sodium 133 Potassium 4.4 Chloride 104 Carbon Dioxide 20 L Anion Gap 13 BUN 16 Creatinine 1.1 Est GFR ( Amer) > 60 Est GFR (Non-Af Amer) 52 POC Glucose (mg/dL) Random Glucose 441 H* D Calcium 7.8 L Phosphorus 4.3 Magnesium 1.4 L Total Bilirubin 0.2 AST 22 ALT 19 Alkaline Phosphatase 83 Total Creatine Kinase 156 H Total Protein 5.1 L Albumin 2.7 L Globulin 2.4 Albumin/Globulin Ratio 1.1 Arterial Blood Potassium 12/16/18 12/17/18 12/17/18 22:24 00:06 05:14 WBC RBC Hgb Hct MCV MCH MCHC RDW Plt Count MPV Neut % (Auto) Lymph % (Auto) [place] % (Auto) Eos % (Auto) Baso % (Auto) Neut # (Auto) Lymph # (Auto) [place] # (Auto) Eos # (Auto) Baso # (Auto) Puncture Site Rra pCO2 43 pO2 132 H HCO3 22.5 ABG pH 7.33 L ABG Total CO2 24.0 ABG O2 Saturation 99.2 H ABG Base Excess -3.2 L ABG Hemoglobin ABG Carboxyhemoglobin POC ABG HHb (Measured) ABG Methemoglobin Hi Test Na ABG Potassium 4.4 A-a O2 Difference 242.0 Respiratory Index 1.8 Hgb O2 Saturation Glucose 432 H* Lactate 1.8 Vent Mode Prvc Mechanical Rate 12 FiO2 60.0 Tidal Volume 450 PEEP 5 Crit Value Called To Dr hayward icu Crit Value Called By [place] Crit Value Read Back Y Blood Gas Notified Time 2238 Sodium 136.0 Potassium Chloride 105.0 Carbon Dioxide Anion Gap BUN Creatinine Est GFR ( Amer) Est GFR (Non-Af Amer) POC Glucose (mg/dL) 443 H* 338 H Random Glucose Calcium Phosphorus Magnesium Total Bilirubin AST ALT Alkaline Phosphatase Total Creatine Kinase Total Protein Albumin Globulin Albumin/Globulin Ratio Arterial Blood Potassium 4.4 12/17/18 12/17/18 12/17/18 05:24 06:15 06:15 WBC 11.9 H RBC 3.66 L Hgb 11.0 Hct 33.4 L MCV 91.2 MCH 30.0 MCHC 32.9 L RDW 14.5 Plt Count 291 MPV 10.3 Neut % (Auto) 80.4 H Lymph % (Auto) 10.6 L [place] % (Auto) 8.8 Eos % (Auto) 0.0 Baso % (Auto) 0.2 Neut # (Auto) 9.6 H Lymph # (Auto) 1.3 [place] # (Auto) 1.0 H Eos # (Auto) 0.0 Baso # (Auto) 0.0 Puncture Site Rr pCO2 41 pO2 218 H HCO3 21.7 ABG pH 7.33 L ABG Total CO2 22.9 ABG O2 Saturation 99.6 H ABG Base Excess -4.1 L ABG Hemoglobin 12.5 ABG Carboxyhemoglobin 1.4 POC ABG HHb (Measured) 0.4 ABG Methemoglobin 0.9 Hi Test Pos ABG Potassium A-a O2 Difference 159.0 Respiratory Index 0.7 Hgb O2 Saturation 97.2 Glucose Lactate Vent Mode Prvc Mechanical Rate 12 FiO2 60.0 Tidal Volume 450 PEEP 5 Crit Value Called To Crit Value Called By Crit Value Read Back Blood Gas Notified Time Sodium 131 L Potassium 4.4 Chloride 103 Carbon Dioxide 21 L Anion Gap 11 BUN 20 H Creatinine 1.6 H Est GFR ( Amer) 41 Est GFR (Non-Af Amer) 34 POC Glucose (mg/dL) Random Glucose 298 H D Calcium 7.4 L Phosphorus 3.8 Magnesium 2.1 Total Bilirubin 0.2 AST 21 ALT 13 Alkaline Phosphatase 68 Total Creatine Kinase Total Protein 4.8 L Albumin 2.5 L Globulin 2.3 Albumin/Globulin Ratio 1.1 Arterial Blood Potassium 12/17/18 12/17/18 11:35 17:40 WBC RBC Hgb Hct MCV MCH MCHC RDW Plt Count MPV Neut % (Auto) Lymph % (Auto) [place] % (Auto) Eos % (Auto) Baso % (Auto) Neut # (Auto) Lymph # (Auto) [place] # (Auto) Eos # (Auto) Baso # (Auto) Puncture Site pCO2 pO2 HCO3 ABG pH ABG Total CO2 ABG O2 Saturation ABG Base Excess ABG Hemoglobin ABG Carboxyhemoglobin POC ABG HHb (Measured) ABG Methemoglobin Hi Test ABG Potassium A-a O2 Difference Respiratory Index Hgb O2 Saturation Glucose Lactate Vent Mode Mechanical Rate FiO2 Tidal Volume PEEP Crit Value Called To Crit Value Called By Crit Value Read Back Blood Gas Notified Time Sodium Potassium Chloride Carbon Dioxide Anion Gap BUN Creatinine Est GFR ( Amer) Est GFR (Non-Af Amer) POC Glucose (mg/dL) 207 H 233 H Random Glucose Calcium Phosphorus Magnesium Total Bilirubin AST ALT Alkaline Phosphatase Total Creatine Kinase Total Protein Albumin Globulin Albumin/Globulin Ratio Arterial Blood Potassium Radiology Impressions: Radiology Impressions Chest X-Ray 12/16/18 19:02 IMPRESSION: In situ ETT as above. Poor inspiration with low lung volumes, crowded bronchovascular markings and mild bibasilar atelectasis. Renal Ultrasound 12/17/18 08:49 IMPRESSION: No hydronephrosis or nephrolithiasis. Critical Care Progress Note - Nutrition Nutrition: Nutrition Category Date Time Status NPO Diet [DIET] Diets 12/16/18 Dinner Active Attending/Attestation - Attestation I have personally seen and examined this patient.: Yes I have fully participated in the care of the patient.: Yes I have reviewed all pertinent clinical information: Yes Notes (Text): 12/17/18 18:05 Patient seen and examined in the intensive care unit. Case discussed with housestaff in the morning rounds. Patient extubated after weaning trial Patient is alert oriented x3 Started making urine Given fluid challenge and albumin Continue ICU observation
[2018-12-17] MEDS: Enoxaparin 40 mg Syringe SC SCH (17:27)
[2018-12-17] MEDS: (Lantus) Insulin Glargine, Recombinant SC SCH (21:25)
[2018-12-18] MEDS: (Novolog) Insulin Aspart, Recombinant 100 u/ml 10 ml vial SC SCH ×4 (00:37→18:29)
[2018-12-18 06:26] LABS: BASO # 0.1 K/uL (0.0-0.2); BASO % 0.9 % (0.0-2.0); EOS # 0.2 K/uL (0.0-0.7); EOS % 3.3 % (0.0-4.0); HEMOGLOBIN 10.2 g/dL (11.0-16.0); LYMPH # 1.3 K/uL (1.0-4.3); LYMPH % 17.7 % (20.0-40.0); MEAN CELL VOLUME 92.2 fL (81.0-99.0); MEAN CORPUSCULAR HGB CONC 33.7 g/dL (33.0-37.0); MEAN PLATELET VOLUME 10.4 fL (7.2-11.7); MONO # 0.7 K/uL (0.0-0.8); MONO % 9.3 % (0.0-10.0); NEUT # 5.2 K/uL (1.8-7.0); NEUT % 68.8 % (50.0-75.0); RBC 3.3 Mil/uL (3.80-5.20); RED CELL DISTRIBUTION WIDTH 14.8 % (11.5-14.5); WHITE BLOOD COUNT 7.5 K/uL (4.8-10.8)
[2018-12-18 06:27] LABS: SQUAMOUS EPITHIAL 1 /hpf (0-5); URINE BACTERIA RARE (<OCC); URINE BILIRUBIN NEGATIVE (NEGATIVE); URINE BLOOD 2+ (NEGATIVE); URINE CLARITY Hazy (Clear); URINE COLOR Yellow (YELLOW); URINE GLUCOSE (UA) 2+ mg/dL (Normal); URINE LEUKOCYTE ESTERASE 1+ Leu/uL (Negative); URINE PROTEIN 1+ mg/dL (NEGATIVE); URINE UROBILINOGEN NORMAL mg/dL (0.2-1.0)
[2018-12-18 06:48] LABS: ALB/GLOB RATIO 1.1 (1.0-2.1); ALBUMIN 2.3 g/dL (3.5-5.0); ALT/SGPT 14 U/L (9-52); AST/SGOT 23 U/L (14-36); GFR NON-AFRICAN AMERICAN > 60
[2018-12-18 07:20] LABS: BLOOD UREA NITROGEN 21 mg/dL (7-17)
[2018-12-18] MEDS ORDERED: HYDROmorphone 0.5 mg/0.5 ml ISec IVP ONE (08:30)
[2018-12-18] MEDS ORDERED: Phenol Topical 1.4% Throat Spray (180 ml) MT PRN (10:30)
[2018-12-18] MEDS ORDERED: Potassium Phosphate 15 MMOLE in Dextrose 5% In Water 250 ML IVPB ONE (11:00)
[2018-12-18] MEDS ORDERED: BUPIVACAINE 0.125%/0.9% NACL 600 ML IJ ONE (11:20)
[2018-12-18] MEDS: Enoxaparin 40 mg Syringe SC SCH (11:24)
--- NOTE | 2018-12-18 18:05 | CP.PCM.PN ---
Subjective - Date & Time of Evaluation Date of Evaluation: 12/18/18 Time of Evaluation: 18:02 - Subjective Subjective: Patient awake, alert NG tube to suction, c/o incisional pain Objective - Vital Signs/Intake and Output Vital Signs (last 24 hours): Temp Pulse Resp BP Pulse Ox 98.3 F 99 H 16 147/61 100 12/18/18 16:00 12/18/18 17:00 12/18/18 17:00 12/18/18 17:00 12/18/18 17:00 Intake and Output: 12/18/18 12/18/18 06:59 18:59 Intake Total 970 864 Output Total 850 650 Balance 120 214 - Medications Medications: Current Medications Enoxaparin Sodium (Lovenox) 40 mg SC DAILY ON LICENSE OF [facility] Last Admin: 12/18/18 11:24 Dose: 40 mg Lactated Ringer's (Lactated Ringer's) 1,000 mls @ 50 mls/hr IV .Q20H ON LICENSE OF [facility] Last Admin: 12/17/18 22:34 Dose: 50 mls/hr BUPIVACAINE 0.125%/0.9% NACL (Bupivacaine-Ns 0.125% On-Q Distribution Agent) 600 mls @ 4 mls/hr IJ ONCE ONE Stop: 12/24/18 17:19 Last Admin: 12/18/18 12:16 Dose: 4 mls/hr Insulin Aspart (Novolog) 0 unit SC Q6 ON LICENSE OF [facility]; Protocol Last Admin: 12/18/18 11:25 Dose: 4 u Insulin Glargine (Lantus) 20 unit SC [facility] Last Admin: 12/17/18 21:25 Dose: 20 u Ketorolac Tromethamine (Toradol) 30 mg IVP Q6 PRN PRN Reason: Pain, moderate (4-7) Last Admin: 12/18/18 11:34 Dose: 30 mg Ondansetron HCl (Zofran Inj) 4 mg IVP Q6H PRN PRN Reason: Nausea/Vomiting Last Admin: 12/18/18 08:21 Dose: 4 mg Pantoprazole Sodium (Protonix Inj) 40 mg IVP DAILY ON LICENSE OF [facility] Last Admin: 12/18/18 11:25 Dose: 40 mg Phenol/Menthol (Phenaseptic 1.4% Throat [place]) 0.5 ml MT Q2H PRN PRN Reason: Other - Labs Labs: 12/18/18 06:16 12/18/18 06:14 - Head Exam Head Exam: ATRAUMATIC, NORMAL INSPECTION - ENT Exam ENT Exam: Mucous Membranes Moist - Respiratory Exam Respiratory Exam: Clear to Ausculation Bilateral, NORMAL BREATHING PATTERN - Cardiovascular Exam Cardiovascular Exam: REGULAR RHYTHM, +S1, +S2 - GI/Abdominal Exam GI & Abdominal Exam: Normal Bowel Sounds - Extremities Exam Extremities Exam: Normal Inspection - Neurological Exam Neurological Exam: Alert, Awake, Oriented x3 - Skin Skin Exam: Normal Color, Warm Assessment and Plan - Assessment and Plan (Free Text) Assessment: 53 y/o s/p TRH BSO NANCY POD #2 in ICU -continue incentive spirometry -continue ng to suction -no BM , no flatus -OOB to chair/abdominal band -continue dvt/pud ppx -check and replace electrolytes -continue IV hydration -continue pain control -patient remains hemodynamically stable
[2018-12-18] MEDS: Lactated Ringer's 1,000 ML IV SCH ×2 (18:29→22:41)
[2018-12-18] MEDS: (Lantus) Insulin Glargine, Recombinant SC SCH (22:40)
[2018-12-19] MEDS: (Novolog) Insulin Aspart, Recombinant 100 u/ml 10 ml vial SC SCH ×4 (00:08→18:09)
[2018-12-19 06:30] LABS: BASO # 0.1 K/uL (0.0-0.2); EOS # 0.5 K/uL (0.0-0.7); EOS % 5.7 % (0.0-4.0); HEMOGLOBIN 9.7 g/dL (11.0-16.0); LYMPH # 1.2 K/uL (1.0-4.3); LYMPH % 14.9 % (20.0-40.0); MEAN CELL VOLUME 91.6 fL (81.0-99.0); MEAN CORPUSCULAR HEMOGLOBIN 31.5 pg (27.0-31.0); MEAN CORPUSCULAR HGB CONC 34.4 g/dL (33.0-37.0); MEAN PLATELET VOLUME 9.9 fL (7.2-11.7); MONO # 0.7 K/uL (0.0-0.8); MONO % 8.5 % (0.0-10.0); NEUT # 5.6 K/uL (1.8-7.0); NEUT % 69.9 % (50.0-75.0); RBC 3.08 Mil/uL (3.80-5.20); RED CELL DISTRIBUTION WIDTH 14.6 % (11.5-14.5); WHITE BLOOD COUNT 7.9 K/uL (4.8-10.8)
[2018-12-19 06:31] LABS: ALBUMIN 2.3 g/dL (3.5-5.0); ALT/SGPT 18 U/L (9-52); AST/SGOT 18 U/L (14-36); BLOOD UREA NITROGEN 18 mg/dL (7-17); CALCIUM 7.1 mg/dl (8.6-10.4); GFR NON-AFRICAN AMERICAN > 60
[2018-12-19] MEDS ORDERED: Acetaminophen 650mg/20.3ml solution UD PO ONE ×2 (08:44→09:15)
[2018-12-19] MEDS: Enoxaparin 40 mg Syringe SC SCH (09:14)
[2018-12-19] MEDS: Lactated Ringer's 1,000 ML IV SCH (15:30)
--- NOTE | 2018-12-19 16:07 | CP.PCM.PN ---
Subjective - Date & Time of Evaluation Date of Evaluation: 12/19/18 Time of Evaluation: 15:54 - Subjective Subjective: No events c/o some nausea accompanied with vertigo since yesterday, improved with meclizine, passing gas, has not had bm, ng removed as was also contributing gagging overnight volume was < 50ml, vitals remained stable. Objective - Vital Signs/Intake and Output Vital Signs (last 24 hours): Temp Pulse Resp BP Pulse Ox 98.0 F 96 H 19 171/73 H 100 12/19/18 08:00 12/19/18 15:00 12/19/18 15:00 12/19/18 15:00 12/19/18 15:00 Intake and Output: 12/19/18 12/19/18 06:59 18:59 Intake Total 648 492 Output Total 700 550 Balance -52 -58 - Medications Medications: Current Medications Amlodipine Besylate (Norvasc) 5 mg PO DAILY [facility] Last Admin: 12/19/18 15:25 Dose: 5 mg Enoxaparin Sodium (Lovenox) 40 mg SC DAILY [facility] Last Admin: 12/19/18 09:14 Dose: 40 mg Lactated Ringer's (Lactated Ringer's) 1,000 mls @ 50 mls/hr IV .Q20H [facility] Last Admin: 12/19/18 15:30 Dose: Not Given BUPIVACAINE 0.125%/0.9% NACL (Bupivacaine-Ns 0.125% On-Q Journeyman Machinist) 600 mls @ 4 mls/hr IJ ONCE ONE Stop: 12/24/18 17:19 Last Admin: 12/18/18 12:16 Dose: 4 mls/hr Potassium Chloride (Potassium Chloride 20 Meq/100 Ml) 20 meq in 100 mls @ 50 mls/hr IVPB Q2 [facility] Stop: 12/19/18 15:59 Last Admin: 12/19/18 15:25 Dose: 50 mls/hr Insulin Aspart (Novolog) 0 unit SC Q6 [facility]; Protocol Last Admin: 12/19/18 11:54 Dose: 3 u Insulin Glargine (Lantus) 20 unit SC HS [facility] Last Admin: 12/18/18 22:40 Dose: 20 u Ketorolac Tromethamine (Toradol) 30 mg IVP Q6 PRN PRN Reason: Pain, moderate (4-7) Last Admin: 12/19/18 11:59 Dose: 30 mg Metoprolol Tartrate (Lopressor) 50 mg PO DAILY [facility] Last Admin: 12/19/18 15:25 Dose: 50 mg Ondansetron HCl (Zofran Inj) 4 mg IVP Q6H PRN PRN Reason: Nausea/Vomiting Last Admin: 12/19/18 11:54 Dose: 4 mg Pantoprazole Sodium (Protonix Inj) 40 mg IVP DAILY [facility] Last Admin: 12/19/18 09:14 Dose: 40 mg Phenol/Menthol (Phenaseptic 1.4% Throat [place]) 0.5 ml MT Q2H PRN PRN Reason: Other - Labs Labs: 12/19/18 06:09 12/19/18 06:09 - Additional Findings Additional findings: * HEENT KOBE * Neck supple * Chest Clear * CVS regular, no gallop or rub * PA soft, obese, mild tenderness in lower abd and surgical site * Ext no edema * FREEZER UNLOADER positional vertigo, no other neurological weakness or sensory deficit, cn fine Assessment and Plan - Assessment and Plan (Free Text) Assessment: 53 y/o s/p TRH BSO NANCY POD #3 in ICU Vertigo/nausea clinically BPV, no other neurlogical finding, improved with meclizine Obese DM continue insentive spirometry, oob as tolerated, dc ng GI/dvt prophylaxis Will transfer to floor See orders for detail.
[2018-12-19] MEDS ORDERED: Oxycodone/Acetaminophen 5/325 mg Tab PO PRN (18:38)
[2018-12-19] MEDS: Oxycodone/Acetaminophen 5/325 mg Tab PO PRN (20:09)
[2018-12-19] MEDS: Simethicone 80 mg Chewtab PO SCH (21:57)
[2018-12-19] MEDS: (Lantus) Insulin Glargine, Recombinant SC SCH (21:58)
--- NOTE | 2018-12-19 23:37 | CP.PCM.PN ---
Subjective - Date & Time of Evaluation Date of Evaluation: 12/19/18 Time of Evaluation: 18:20 - Subjective Subjective: Delayed entry: pt seen and examined and reports pain that comes and goes. patient reports is initially well controlled iwth IV pain medication but after 4 hours wears off and is throughout abdomen. pt reports feeling better once ngt removed and reports feeling hungry. pt tolerating full liquid diet , passing flatus, ambulating to commode, urinating. pt denies any fever, chills, nausea, vomiting, cp, sob, vaginal bleeding. pt had episode of dizziness earlier that resolved. pt has no other complaints. Objective - Vital Signs/Intake and Output Vital Signs (last 24 hours): Temp Pulse Resp BP Pulse Ox 98.7 F 88 19 135/77 100 12/19/18 20:00 12/19/18 20:00 12/19/18 20:00 12/19/18 22:14 12/19/18 17:00 Intake and Output: 12/19/18 12/20/18 18:59 06:59 Intake Total 789 Output Total 800 Balance -11 - Medications Medications: Current Medications Amlodipine Besylate (Norvasc) 5 mg PO DAILY [facility] Last Admin: 12/19/18 15:25 Dose: 5 mg Enoxaparin Sodium (Lovenox) 40 mg SC DAILY [facility] Last Admin: 12/19/18 09:14 Dose: 40 mg Lactated Ringer's (Lactated Ringer's) 1,000 mls @ 50 mls/hr IV .Q20H [facility] Last Admin: 12/19/18 15:30 Dose: Not Given BUPIVACAINE 0.125%/0.9% NACL (Bupivacaine-Ns 0.125% On-Q Radiology Receptionist) 600 mls @ 4 mls/hr IJ ONCE ONE Stop: 12/24/18 17:19 Last Admin: 12/18/18 12:16 Dose: 4 mls/hr Insulin Aspart (Novolog) 0 unit SC Q6 [facility]; Protocol Last Admin: 12/19/18 18:09 Dose: 3 u Insulin Glargine (Lantus) 20 unit SC HS [facility] Last Admin: 12/19/18 21:58 Dose: 20 u Ketorolac Tromethamine (Toradol) 30 mg IVP Q6 PRN PRN Reason: Pain, moderate (4-7) Last Admin: 12/19/18 18:09 Dose: 30 mg Metformin HCl (Glucophage) 1,000 mg PO DAILY [facility] Metoprolol Tartrate (Lopressor) 50 mg PO DAILY [facility] Last Admin: 12/19/18 15:25 Dose: 50 mg Ondansetron HCl (Zofran Inj) 4 mg IVP Q6H PRN PRN Reason: Nausea/Vomiting Last Admin: 12/19/18 11:54 Dose: 4 mg Oxycodone/Acetaminophen (Percocet 5/325 Mg Tab) 2 tab PO Q4H PRN PRN Reason: Pain, severe (8-10) Stop: 12/22/18 18:39 Oxycodone/Acetaminophen (Percocet 5/325 Mg Tab) 1 tab PO Q4H PRN PRN Reason: Pain, moderate (4-7) Stop: 12/22/18 18:39 Last Admin: 12/19/18 20:09 Dose: 1 tab Pantoprazole Sodium (Protonix Inj) 40 mg IVP DAILY [facility] Last Admin: 12/19/18 09:14 Dose: 40 mg Phenol/Menthol (Phenaseptic 1.4% Throat [place]) 0.5 ml MT Q2H PRN PRN Reason: Other Simethicone (Mylicon Chew Tab) 80 mg PO Q8 [facility] Last Admin: 12/19/18 21:57 Dose: 80 mg - Labs Labs: 12/19/18 06:09 12/19/18 06:09 - Constitutional Appears: Well, Non-toxic - Head Exam Head Exam: ATRAUMATIC, NORMAL INSPECTION - Eye Exam Eye Exam: EOMI, Normal appearance - ENT Exam ENT Exam: Mucous Membranes Moist, Normal Exam - Neck Exam Neck Exam: Full ROM, Normal Inspection - Respiratory Exam Respiratory Exam: Clear to Ausculation Bilateral, NORMAL BREATHING PATTERN - Cardiovascular Exam Cardiovascular Exam: REGULAR RHYTHM, +S1, +S2 - GI/Abdominal Exam GI & Abdominal Exam: Soft, Tenderness, Normal Bowel Sounds Additional comments: TTP over lower abdomen approrpiate, no guarding, no rebound tenderness, no rigidity, no vaginal bleeding +Abdominal binder - Exam External exam: NORMAL EXTERNAL EXAM - Extremities Exam Extremities Exam: Full ROM, Normal Capillary Refill, Normal Inspection. absent: Calf Tenderness, Tenderness - Back Exam Back Exam: NORMAL INSPECTION. absent: CVA tenderness (L), CVA tenderness (R) - Neurological Exam Neurological Exam: Alert, Awake - Psychiatric Exam Psychiatric exam: Normal Affect, Normal Mood - Skin Skin Exam: Dry, Intact, Normal Color, Warm Assessment and Plan (1) History of robot-assisted laparoscopic hysterectomy Assessment & Plan: 53y/o with DM, HTN, Obesity s/p TRH BSO POD #3 with hyperglycemia -Pain management: IV Toradol +PO percocet -Bowel regimen: simethicone -Diet: Advance to diabetic diet in am -Routine: encourage ambulation with assistance, abdominal binder, incentive spirometer, dvt prophylaxis -HTN: BP meds restarted, holding parameters -DM: Blood glucose monitoring as per ICU, continue Lantus, restart metformin o nce diabetic diet (Intially 400s-->200s) -Hypokalemia: KCL IV replacement -AM Labs Pt to be downgraded to med/surg. pt and family aware ICU Management appreciated Please call directly in any questions or concerns regarding patient Marline Edwards MD Status: Acute (2) Diabetes Status: Acute (3) Hypertension Status: Acute (4) Endotracheally intubated Status: Acute
[2018-12-20] MEDS: (Novolog) Insulin Aspart, Recombinant 100 u/ml 10 ml vial SC SCH ×5 (04:39→21:54)
[2018-12-20 06:51] LABS: ALBUMIN 2.5 g/dL (3.5-5.0); ALT/SGPT 12 U/L (9-52); AST/SGOT 14 U/L (14-36); BLOOD UREA NITROGEN 14 mg/dL (7-17); CALCIUM 7.5 mg/dl (8.6-10.4); GFR NON-AFRICAN AMERICAN > 60
[2018-12-20] MEDS: Simethicone 80 mg Chewtab PO SCH ×3 (07:25→21:52)
--- NOTE | 2018-12-20 07:25 | CON ---
DATE: 12/19/2018 The patient was seen and examined at the bedside on 12/19/2018 . this consult is for 12/19/18 CHIEF COMPLAINT: Abdominal pain. HISTORY OF PRESENT ILLNESS: Ms. Deb Canales is a 53-year-old my private patient with history of diabetes mellitus, hypertension, hypercholesterolemia, obesity, postmenopausal bleeding. Came in the hospital with Dr. Marline Edwards for total abdominal hysterectomy. Has a history of uterine fibroid. Has pelvic pain and abnormal uterine bleeding. The patient got robotic hysterectomy. The patient was brought to ICU, intubated and sedated on propofol but later on, the patient is successfully extubated. Has NG tube removed. The patient passed gas, but still does not have bowel movement. PAST MEDICAL HISTORY: Diabetes mellitus type 2, hypertension, hypercholesterolemia, uterine fibroid, abnormal uterine bleeding, history of section. HABITS: Never smoked. No ethanol. FAMILY HISTORY: Father and mother, noncontributory. ALLERGIES: THE PATIENT IS NOT ALLERGIC WITH ANY MEDICATION. REVIEW OF SYSTEMS: The patient was seen and examined at the bedside. Sitting there comfortably. No fever. No chills. Getting pain medication. No hematuria or hematochezia. No headaches or dizziness. No chest pain. No palpitation. PHYSICAL EXAMINATION: VITAL SIGNS: Temperature 98.7, pulse 88, blood pressure 135/77, respiratory rate 19. HEENT: Head: Normocephalic and atraumatic. Eyes: PERRLA. Extraocular muscles are intact. Conjunctivae clear. Nose patent. Mucous membrane moist. NECK: Supple. No carotid bruits, JVD, or thyromegaly. CHEST: Bilaterally symmetrical. HEART: S1 and S2 positive. LUNGS: Clear to auscultation. ABDOMEN: Soft. Bowel sounds present. No organomegaly. EXTREMITIES: No edema. No cyanosis. NEUROLOGIC: The patient is awake and alert. Moving all four extremities. No focal deficit. LABORATORY DATA: White blood cells 7.9, hemoglobin 9.7, hematocrit 28.2, platelets 264. Sodium 139, potassium 3.5, BUN 18, creatinine 0.8, glucose 202, calcium 7.1, phosphorus 1.8. ASSESSMENT AND PLAN: Ms. Deb Canales is a 53-year-old female with anemia; history of leukocytosis; history of hypokalemia, replaced; hyperchloremia; diabetes mellitus; hypocalcemia; hypophosphatemia; proteinuria; glycosuria; hematuria. The patient is under the care of Dr. Marline Edwards. reviewed by me. Seen by Dr. Darsahn Wynne, legal paraprofessional. Gastrointestinal and deep venous thrombosis prophylaxis. Repeat labs. We will follow up. Emmy Joy MD MTDD
--- NOTE | 2018-12-20 09:01 | CP.PCM.PN ---
Subjective - Date & Time of Evaluation Date of Evaluation: 12/20/18 Time of Evaluation: 08:40 - Subjective Subjective: Dr. Robert Oakley requested that I see her pt today. s: pt tolerated reg diet this am. She has been oob to chair. c/o pain desires percocet. denies fatigue or syncope. no other c/o. denies h/o gastritis or contraindications to nsaids Objective - Vital Signs/Intake and Output Vital Signs (last 24 hours): Temp Pulse Resp BP Pulse Ox 98.7 F 99 H 20 161/67 H 100 12/19/18 20:00 12/20/18 06:00 12/20/18 06:00 12/20/18 06:00 12/19/18 17:00 Intake and Output: 12/20/18 12/20/18 06:59 18:59 Intake Total 900 Output Total 600 Balance 300 - Medications Medications: Current Medications Amlodipine Besylate (Norvasc) 5 mg PO DAILY [facility] Last Admin: 12/19/18 15:25 Dose: 5 mg Enoxaparin Sodium (Lovenox) 40 mg SC DAILY [facility] Last Admin: 12/19/18 09:14 Dose: 40 mg Lactated Ringer's (Lactated Ringer's) 1,000 mls @ 50 mls/hr IV .Q20H [facility] Last Admin: 12/19/18 15:30 Dose: Not Given BUPIVACAINE 0.125%/0.9% NACL (Bupivacaine-Ns 0.125% On-[employer]) 600 mls @ 4 mls/hr IJ ONCE ONE Stop: 12/24/18 17:19 Last Admin: 12/18/18 12:16 Dose: 4 mls/hr Insulin Aspart (Novolog) 0 unit SC Q6 [facility]; Protocol Last Admin: 12/20/18 07:26 Dose: Not Given Insulin Glargine (Lantus) 20 unit SC HS [facility] Last Admin: 12/19/18 21:58 Dose: 20 u Ketorolac Tromethamine (Toradol) 30 mg IVP Q6 PRN PRN Reason: Pain, moderate (4-7) Last Admin: 12/19/18 18:09 Dose: 30 mg Metformin HCl (Glucophage) 1,000 mg PO DAILY [facility] Metoprolol Tartrate (Lopressor) 50 mg PO DAILY [facility] Last Admin: 12/19/18 15:25 Dose: 50 mg Ondansetron HCl (Zofran Inj) 4 mg IVP Q6H PRN PRN Reason: Nausea/Vomiting Last Admin: 12/19/18 11:54 Dose: 4 mg Oxycodone/Acetaminophen (Percocet 5/325 Mg Tab) 2 tab PO Q4H PRN PRN Reason: Pain, severe (8-10) Stop: 12/22/18 18:39 Oxycodone/Acetaminophen (Percocet 5/325 Mg Tab) 1 tab PO Q4H PRN PRN Reason: Pain, moderate (4-7) Stop: 12/22/18 18:39 Last Admin: 12/19/18 20:09 Dose: 1 tab Pantoprazole Sodium (Protonix Inj) 40 mg IVP DAILY [facility] Last Admin: 12/19/18 09:14 Dose: 40 mg Phenol/Menthol (Phenaseptic 1.4% Throat [place]) 0.5 ml MT Q2H PRN PRN Reason: Other Simethicone (Mylicon Chew Tab) 80 mg PO Q8 [facility] Last Admin: 12/20/18 07:25 Dose: Not Given - Labs Labs: 12/19/18 06:09 12/20/18 06:12 - Constitutional Appears: Well, No Acute Distress - Head Exam Head Exam: ATRAUMATIC, NORMOCEPHALIC - Respiratory Exam Respiratory Exam: NORMAL BREATHING PATTERN Additional comments: denies sob - Cardiovascular Exam Cardiovascular Exam: REGULAR RHYTHM - GI/Abdominal Exam GI & Abdominal Exam: Soft (obese and pendulous; no erythemea or induration;). absent: Distended - Extremities Exam Extremities Exam: Normal Inspection (no c/c/e) - Neurological Exam Neurological Exam: Oriented x3 - Skin Skin Exam: Warm Assessment and Plan - Assessment and Plan (Free Text) Assessment: POD4 Robotic Hysterectomy with myomectomy doing well postoperatively Postop Pain DM, HTN MORBID OBESITY RESOVLED Hypokalemia PLAN: Begin Motrin Q6hx24 then prn d/c percocet. rx acetamin 650 Q6hr. rx oxycodone 5 prn continue onQ line Ambulate pt on lovenox & teds IS pt instructed Management of DM & HTN per medicine. Pt's fp to see pt today per dr. robert oakley. Transfer to med/surg bed available
[2018-12-20] MEDS: Oxycodone/Acetaminophen 5/325 mg Tab PO PRN (09:17)
[2018-12-20] MEDS ORDERED: oxyCODONE 5 mg Immediate Release Tab PO PRN (09:28)
[2018-12-20 09:31] LABS: BASO # 0.1 K/uL (0.0-0.2); BASO % 0.9 % (0.0-2.0); EOS # 0.5 K/uL (0.0-0.7); EOS % 5.5 % (0.0-4.0); HEMOGLOBIN 9.9 g/dL (11.0-16.0); LYMPH # 1.4 K/uL (1.0-4.3); LYMPH % 14.2 % (20.0-40.0); MEAN CELL VOLUME 92.3 fL (81.0-99.0); MEAN CORPUSCULAR HEMOGLOBIN 30.1 pg (27.0-31.0); MEAN CORPUSCULAR HGB CONC 32.6 g/dL (33.0-37.0); MEAN PLATELET VOLUME 9.7 fL (7.2-11.7); MONO # 0.7 K/uL (0.0-0.8); MONO % 7.1 % (0.0-10.0); NEUT # 7.1 K/uL (1.8-7.0); NEUT % 72.3 % (50.0-75.0); NRBC % 0.1 % (0.0-2.0); RBC 3.3 Mil/uL (3.80-5.20); RED CELL DISTRIBUTION WIDTH 14.4 % (11.5-14.5); WHITE BLOOD COUNT 9.8 K/uL (4.8-10.8)
[2018-12-20] MEDS: Enoxaparin 40 mg Syringe SC SCH (09:45)
[2018-12-20 10:01] LABS: IRON 14 ug/dL (37-170)
[2018-12-20 10:12] LABS: % IRON SATURATION 6 (20-55); TOTAL IRON BINDING CAPACITY 244 ug/dL (250-450)
[2018-12-20 11:15] LABS: FOLATE 15.1 ng/mL
[2018-12-20 12:42] LABS: ARTERIAL BLOOD GAS HCO3 22.5 mmol/L (21-28); ARTERIAL BLOOD GAS HEMOGLOBIN 10.7 g/dL (11.7-17.4); ARTERIAL BLOOD GAS O2 SAT 97.3 % (95-98); ARTERIAL BLOOD GAS PCO2 34 mm/Hg (35-45); ARTERIAL BLOOD GAS PO2 66 mm/Hg (80-100); ARTERIAL BLOOD GAS TCO2 22.1 mmol/L (22-28)
--- NOTE | 2018-12-20 12:54 | CP.PCM.CON ---
<Crow Arambula - Last Filed: 12/20/18 13:06> History of Present Illness - History of Present Illness History of Present Illness: Pulm consult note for Dr. Wynne 53 year old female with PMHx of DM, HTN, HLD, uterine fibroids s/p elective total robotic hysterectomy is consulted for low oxygenation saturation after transfer from ICU to the floor. Patient is well known to Dr. Wynne as he was her ICU attending. Briefly, patient under went total robotic hysterectomy on 12/16. After an extensive surgery requiring lysis of multiple adhesions and placement of uretral stents patient was transfered to ICU and remained intubated. Patient was extubated on 12/17 after weaning trial. She was held in ICU until she stabilized and began making urine. She was transfered to med/surg floor on 12/19. Here she has been monitored and treated for post op pain with oxycodone motrin, tylenol, as well as bupivicane subQ pump. Patient began having trouble breathing on 12/20. Her oxygen saturation on room air was as low as 88%. On 3L oxygen she improved to 91%. Patient states she felt weak and short of breath. She denies fever or cough but states she feels very tired and has pain in her abdomen. She denies history of asmtha or COPD. ROS: as listed in HPI PMHx: DM, HTN, HLD, Fibroids SHx: robotic hysterectomy, ureteral stents Social: denies cigarette or alcohol use Allergies: denies allergies Review of Systems - Constitutional Constitutional: Fatigue. absent: Chills, Fever - EENT Eyes: absent: Blurred Vision, Change in Vision, Diplopia Ears: absent: Decreased Hearing Nose/Mouth/Throat: absent: Nasal Congestion - Cardiovascular Cardiovascular: Leg Edema, Pedal Edema. absent: Chest Pain, Chest Pain at Rest - Respiratory Respiratory: Chest Congestion. absent: Cough - Gastrointestinal Gastrointestinal: absent: Abdominal Pain, Change in Bowel Habits - Genitourinary Genitourinary: absent: Dysuria Past Patient History - Past Medical History & Family History Past Medical History?: Yes - Past Social History Smoking Status: Never Smoked Chewing Tobacco Use: No Cigar Use: No Alcohol: None Drugs: Denies - CARDIAC Hx Cardiac Disorders: Yes Hx Hypercholesterolemia: Yes Hx Hypertension: Yes - PULMONARY Hx Respiratory Disorders: No - NEUROLOGICAL Hx Neurological Disorder: No - HEENT Hx HEENT Problems: Yes Hx Cataracts: Yes (RIGHT EYE) - RENAL Hx Chronic Kidney Disease: No - ENDOCRINE/METABOLIC Hx Diabetes Mellitus Type 2: Yes - HEMATOLOGICAL/ONCOLOGICAL Hx Blood Disorders: No - INTEGUMENTARY Hx Dermatological Problems: No - MUSCULOSKELETAL/RHEUMATOLOGICAL Hx Musculoskeletal Disorders: No - GASTROINTESTINAL Hx Gastrointestinal Disorders: No - GENITOURINARY/GYNECOLOGICAL Hx Genitourinary Disorders: Yes Other/Comment: HX: FIBROID UTERUS - PSYCHIATRIC Hx Psychophysiologic Disorder: No - SURGICAL HISTORY Hx Surgeries: Yes Hx Section: Yes - ANESTHESIA Hx Anesthesia: Yes Hx Anesthesia Reactions: No Hx Malignant Hyperthermia: No Has any member of the family had a problem w/ anesthesia?: No Meds Allergies/Adverse Reactions: Allergies Allergy/AdvReac Type Severity Reaction Status Date / Time No Known Allergies Allergy Unverified 12/08/18 10:33 - Medications Medications: Current Medications Acetaminophen (Tylenol 325mg Tab) 650 mg PO Q6 [facility] Last Admin: 12/20/18 12:43 Dose: Not Given Amlodipine Besylate (Norvasc) 5 mg PO DAILY [facility] Last Admin: 12/20/18 09:45 Dose: 5 mg Enoxaparin Sodium (Lovenox) 40 mg SC DAILY [facility] Last Admin: 12/20/18 09:45 Dose: 40 mg BUPIVACAINE 0.125%/0.9% NACL (Bupivacaine-Ns 0.125% On-Q [employer]) 600 mls @ 4 mls/hr IJ ONCE ONE Stop: 12/24/18 17:19 Last Admin: 12/18/18 12:16 Dose: 4 mls/hr Ibuprofen (Motrin Tab) 600 mg PO QID [facility] Last Admin: 12/20/18 09:45 Dose: 600 mg Insulin Aspart (Novolog) 0 unit SC [facility]; Protocol Last Admin: 12/20/18 12:43 Dose: 6 unit Insulin Glargine (Lantus) 20 unit SC [facility] Last Admin: 12/19/18 21:58 Dose: 20 u Metformin HCl (Glucophage) 1,000 mg PO DAILY [facility] Last Admin: 12/20/18 09:44 Dose: 1,000 mg Metoprolol Tartrate (Lopressor) 50 mg PO DAILY [facility] Last Admin: 12/20/18 09:44 Dose: 50 mg Ondansetron HCl (Zofran Inj) 4 mg IVP Q6H PRN PRN Reason: Nausea/Vomiting Last Admin: 12/19/18 11:54 Dose: 4 mg Oxycodone HCl (Oxycodone Immediate Release Tab) 5 mg PO Q4 PRN PRN Reason: Pain, moderate (4-7) Oxycodone HCl (Oxycodone Immediate Release Tab) 10 mg PO Q4 PRN PRN Reason: Pain, severe (8-10) Pantoprazole Sodium (Protonix Inj) 40 mg IVP DAILY [facility] Last Admin: 12/20/18 09:45 Dose: 40 mg Phenol/Menthol (Phenaseptic 1.4% Throat [place]) 0.5 ml MT Q2H PRN PRN Reason: Other Simethicone (Mylicon Chew Tab) 80 mg PO Q8 [facility] Last Admin: 12/20/18 07:25 Dose: Not Given Physical Exam - Constitutional Appears: Toxic, No Acute Distress - Head Exam Head Exam: NORMAL INSPECTION - Eye Exam Eye Exam: EOMI, Normal appearance - ENT Exam ENT Exam: Mucous Membranes Moist, Normal Exam - Neck Exam Neck exam: Positive for: Normal Inspection - Respiratory Exam Respiratory Exam: Rales, NORMAL BREATHING PATTERN - Cardiovascular Exam Cardiovascular Exam: REGULAR RHYTHM, +S1, +S2 - GI/Abdominal Exam GI & Abdominal Exam: Normal Bowel Sounds - Rectal Exam Rectal Exam: Deferred - Extremities Exam Extremities exam: Positive for: pedal edema, pedal pulses present - Neurological Exam Neurological exam: Oriented x3 - Psychiatric Exam Psychiatric exam: Normal Mood - Skin Skin Exam: Intact, Normal Color Results - Vital Signs Recent Vital Signs: Last Vital Signs Temp 98.9 F 12/20/18 09:30 Pulse 87 12/20/18 09:30 Resp 18 12/20/18 09:30 BP 166/84 H 12/20/18 12:39 Pulse Ox 95 12/20/18 09:30 - Labs Result Diagrams: 12/20/18 09:17 12/20/18 06:12 Labs: Laboratory Results - last 24 hr 12/19/18 12/19/18 12/20/18 17:46 21:54 06:12 WBC RBC Hgb Hct MCV MCH MCHC RDW Plt Count MPV Neut % (Auto) Lymph % (Auto) [place] % (Auto) Eos % (Auto) Baso % (Auto) Neut # (Auto) Lymph # (Auto) [place] # (Auto) Eos # (Auto) Baso # (Auto) Puncture Site pCO2 pO2 HCO3 ABG pH ABG Total CO2 ABG O2 Saturation ABG Base Excess ABG Hemoglobin ABG Carboxyhemoglobin POC ABG HHb (Measured) ABG Methemoglobin Hi Test Hgb O2 Saturation Liter Flow Sodium 138 Potassium 3.6 Chloride 110 H Carbon Dioxide 25 Anion Gap 6 L BUN 14 Creatinine 0.7 Est GFR ( Amer) > 60 Est GFR (Non-Af Amer) > 60 POC Glucose (mg/dL) 216 H 222 H Random Glucose 211 H Hemoglobin A1c Calcium 7.5 L Iron TIBC % Saturation Total Bilirubin 0.3 AST 14 D ALT 12 Alkaline Phosphatase 98 Total Protein 4.9 L Albumin 2.5 L Globulin 2.4 Albumin/Globulin Ratio 1.0 Triglycerides Cholesterol LDL Cholesterol Direct HDL Cholesterol Vitamin B12 Folate TSH 3rd Generation 0.35 L 12/20/18 12/20/18 12/20/18 07:34 09:17 09:46 WBC 9.8 RBC 3.30 L Hgb 9.9 L Hct 30.5 L MCV 92.3 MCH 30.1 MCHC 32.6 L RDW 14.4 Plt Count 307 MPV 9.7 Neut % (Auto) 72.3 Lymph % (Auto) 14.2 L [place] % (Auto) 7.1 Eos % (Auto) 5.5 H Baso % (Auto) 0.9 Neut # (Auto) 7.1 H Lymph # (Auto) 1.4 [place] # (Auto) 0.7 Eos # (Auto) 0.5 Baso # (Auto) 0.1 Puncture Site pCO2 pO2 HCO3 ABG pH ABG Total CO2 ABG O2 Saturation ABG Base Excess ABG Hemoglobin ABG Carboxyhemoglobin POC ABG HHb (Measured) ABG Methemoglobin Hi Test Hgb O2 Saturation Liter Flow Sodium Potassium Chloride Carbon Dioxide Anion Gap BUN Creatinine Est GFR ( Amer) Est GFR (Non-Af Amer) POC Glucose (mg/dL) 240 H Random Glucose Hemoglobin A1c Calcium Iron TIBC % Saturation Total Bilirubin AST ALT Alkaline Phosphatase Total Protein Albumin Globulin Albumin/Globulin Ratio Triglycerides 288 H Cholesterol 248 H LDL Cholesterol Direct 146 H HDL Cholesterol 37 Vitamin B12 655 Folate 15.1 TSH 3rd Generation 12/20/18 12/20/18 12/20/18 09:46 09:46 11:11 WBC RBC Hgb Hct MCV MCH MCHC RDW Plt Count MPV Neut % (Auto) Lymph % (Auto) [place] % (Auto) Eos % (Auto) Baso % (Auto) Neut # (Auto) Lymph # (Auto) [place] # (Auto) Eos # (Auto) Baso # (Auto) Puncture Site pCO2 pO2 HCO3 ABG pH ABG Total CO2 ABG O2 Saturation ABG Base Excess ABG Hemoglobin ABG Carboxyhemoglobin POC ABG HHb (Measured) ABG Methemoglobin Hi Test Hgb O2 Saturation Liter Flow Sodium Potassium Chloride Carbon Dioxide Anion Gap BUN Creatinine Est GFR ( Amer) Est GFR (Non-Af Amer) POC Glucose (mg/dL) 318 H Random Glucose Hemoglobin A1c 11.4 H Calcium Iron 14 L TIBC 244 L % Saturation 6 L Total Bilirubin AST ALT Alkaline Phosphatase Total Protein Albumin Globulin Albumin/Globulin Ratio Triglycerides Cholesterol LDL Cholesterol Direct HDL Cholesterol Vitamin B12 Folate TSH 3rd Generation 12/20/18 12:39 WBC RBC Hgb Hct MCV MCH MCHC RDW Plt Count MPV Neut % (Auto) Lymph % (Auto) [place] % (Auto) Eos % (Auto) Baso % (Auto) Neut # (Auto) Lymph # (Auto) [place] # (Auto) Eos # (Auto) Baso # (Auto) Puncture Site Lb pCO2 34 L pO2 66 L HCO3 22.5 ABG pH 7.40 ABG Total CO2 22.1 ABG O2 Saturation 97.3 ABG Base Excess -3.1 L ABG Hemoglobin 10.7 L ABG Carboxyhemoglobin 2.7 H POC ABG HHb (Measured) 2.6 ABG Methemoglobin 0.8 Hi Test Na Hgb O2 Saturation 93.9 L Liter Flow 3.0 Sodium Potassium Chloride Carbon Dioxide Anion Gap BUN Creatinine Est GFR ( Amer) Est GFR (Non-Af Amer) POC Glucose (mg/dL) Random Glucose Hemoglobin A1c Calcium Iron TIBC % Saturation Total Bilirubin AST ALT Alkaline Phosphatase Total Protein Albumin Globulin Albumin/Globulin Ratio Triglycerides Cholesterol LDL Cholesterol Direct HDL Cholesterol Vitamin B12 Folate TSH 3rd Generation Assessment & Plan - Assessment and Plan (Free Text) Assessment: 53 year old female with a PMH of DM, HTN, HLD who presented on 12/16 for an elective robot hysterectomy. Pulm was consulted for post-op low oxygen sat. Saturation was 91% on 3L nasal cannula. Plan: 1.SOB likely secondary to fluid overload Lasix 40 mg BP has been high CXR portable ABG <Darshan Wynne - Last Filed: 12/20/18 17:40> Meds - Medications Medications: Current Medications Acetaminophen (Tylenol 325mg Tab) 650 mg PO Q6 [facility] Last Admin: 12/20/18 17:35 Dose: 650 mg Amlodipine Besylate (Norvasc) 5 mg PO DAILY [facility] Last Admin: 12/20/18 09:45 Dose: 5 mg Enoxaparin Sodium (Lovenox) 40 mg SC DAILY [facility] Last Admin: 12/20/18 09:45 Dose: 40 mg BUPIVACAINE 0.125%/0.9% NACL (Bupivacaine-Ns 0.125% On-Q [employer]) 600 mls @ 4 mls/hr IJ ONCE ONE Stop: 12/24/18 17:19 Last Admin: 12/18/18 12:16 Dose: 4 mls/hr Ibuprofen (Motrin Tab) 600 mg PO QID [facility] Last Admin: 12/20/18 17:35 Dose: 600 mg Insulin Aspart (Novolog) 0 unit SC [facility]; Protocol Last Admin: 12/20/18 17:36 Dose: 3 unit Insulin Glargine (Lantus) 20 unit SC [facility] Last Admin: 12/19/18 21:58 Dose: 20 u Metformin HCl (Glucophage) 1,000 mg PO DAILY [facility] Last Admin: 12/20/18 09:44 Dose: 1,000 mg Metoprolol Tartrate (Lopressor) 50 mg PO DAILY [facility] Last Admin: 12/20/18 09:44 Dose: 50 mg Ondansetron HCl (Zofran Inj) 4 mg IVP Q6H PRN PRN Reason: Nausea/Vomiting Last Admin: 12/19/18 11:54 Dose: 4 mg Oxycodone HCl (Oxycodone Immediate Release Tab) 5 mg PO Q4 PRN PRN Reason: Pain, moderate (4-7) Oxycodone HCl (Oxycodone Immediate Release Tab) 10 mg PO Q4 PRN PRN Reason: Pain, severe (8-10) Pantoprazole Sodium (Protonix Inj) 40 mg IVP DAILY [facility] Last Admin: 12/20/18 09:45 Dose: 40 mg Phenol/Menthol (Phenaseptic 1.4% Throat [place]) 0.5 ml MT Q2H PRN PRN Reason: Other Simethicone (Mylicon Chew Tab) 80 mg PO Q8 [facility] Last Admin: 12/20/18 14:40 Dose: 80 mg Results - Vital Signs Recent Vital Signs: Last Vital Signs Temp 98.2 F 12/20/18 16:00 Pulse 85 12/20/18 16:00 Resp 20 12/20/18 16:00 BP 175/80 H 12/20/18 16:00 Pulse Ox 94 L 12/20/18 16:00 - Labs Result Diagrams: 12/20/18 09:17 12/20/18 06:12 Labs: Laboratory Results - last 24 hr 12/19/18 12/19/18 12/20/18 17:46 21:54 06:12 WBC RBC Hgb Hct MCV MCH MCHC RDW Plt Count MPV Neut % (Auto) Lymph % (Auto) [place] % (Auto) Eos % (Auto) Baso % (Auto) Neut # (Auto) Lymph # (Auto) [place] # (Auto) Eos # (Auto) Baso # (Auto) Puncture Site pCO2 pO2 HCO3 ABG pH ABG Total CO2 ABG O2 Saturation ABG Base Excess ABG Hemoglobin ABG Carboxyhemoglobin POC ABG HHb (Measured) ABG Methemoglobin Hi Test Hgb O2 Saturation Liter Flow Sodium 138 Potassium 3.6 Chloride 110 H Carbon Dioxide 25 Anion Gap 6 L BUN 14 Creatinine 0.7 Est GFR ( Amer) > 60 Est GFR (Non-Af Amer) > 60 POC Glucose (mg/dL) 216 H 222 H Random Glucose 211 H Hemoglobin A1c Calcium 7.5 L Iron TIBC % Saturation Total Bilirubin 0.3 AST 14 D ALT 12 Alkaline Phosphatase 98 Total Protein 4.9 L Albumin 2.5 L Globulin 2.4 Albumin/Globulin Ratio 1.0 Triglycerides Cholesterol LDL Cholesterol Direct HDL Cholesterol Vitamin B12 Folate TSH 3rd Generation 0.35 L 12/20/18 12/20/18 12/20/18 07:34 09:17 09:46 WBC 9.8 RBC 3.30 L Hgb 9.9 L Hct 30.5 L MCV 92.3 MCH 30.1 MCHC 32.6 L RDW 14.4 Plt Count 307 MPV 9.7 Neut % (Auto) 72.3 Lymph % (Auto) 14.2 L [place] % (Auto) 7.1 Eos % (Auto) 5.5 H Baso % (Auto) 0.9 Neut # (Auto) 7.1 H Lymph # (Auto) 1.4 [place] # (Auto) 0.7 Eos # (Auto) 0.5 Baso # (Auto) 0.1 Puncture Site pCO2 pO2 HCO3 ABG pH ABG Total CO2 ABG O2 Saturation ABG Base Excess ABG Hemoglobin ABG Carboxyhemoglobin POC ABG HHb (Measured) ABG Methemoglobin Hi Test Hgb O2 Saturation Liter Flow Sodium Potassium Chloride Carbon Dioxide Anion Gap BUN Creatinine Est GFR ( Amer) Est GFR (Non-Af Amer) POC Glucose (mg/dL) 240 H Random Glucose Hemoglobin A1c Calcium Iron TIBC % Saturation Total Bilirubin AST ALT Alkaline Phosphatase Total Protein Albumin Globulin Albumin/Globulin Ratio Triglycerides 288 H Cholesterol 248 H LDL Cholesterol Direct 146 H HDL Cholesterol 37 Vitamin B12 655 Folate 15.1 TSH 3rd Generation 12/20/18 12/20/18 12/20/18 09:46 09:46 11:11 WBC RBC Hgb Hct MCV MCH MCHC RDW Plt Count MPV Neut % (Auto) Lymph % (Auto) [place] % (Auto) Eos % (Auto) Baso % (Auto) Neut # (Auto) Lymph # (Auto) [place] # (Auto) Eos # (Auto) Baso # (Auto) Puncture Site pCO2 pO2 HCO3 ABG pH ABG Total CO2 ABG O2 Saturation ABG Base Excess ABG Hemoglobin ABG Carboxyhemoglobin POC ABG HHb (Measured) ABG Methemoglobin Hi Test Hgb O2 Saturation Liter Flow Sodium Potassium Chloride Carbon Dioxide Anion Gap BUN Creatinine Est GFR ( Amer) Est GFR (Non-Af Amer) POC Glucose (mg/dL) 318 H Random Glucose Hemoglobin A1c 11.4 H Calcium Iron 14 L TIBC 244 L % Saturation 6 L Total Bilirubin AST ALT Alkaline Phosphatase Total Protein Albumin Globulin Albumin/Globulin Ratio Triglycerides Cholesterol LDL Cholesterol Direct HDL Cholesterol Vitamin B12 Folate TSH 3rd Generation 12/20/18 12/20/18 12:39 16:34 WBC RBC Hgb Hct MCV MCH MCHC RDW Plt Count MPV Neut % (Auto) Lymph % (Auto) [place] % (Auto) Eos % (Auto) Baso % (Auto) Neut # (Auto) Lymph # (Auto) [place] # (Auto) Eos # (Auto) Baso # (Auto) Puncture Site Lb pCO2 34 L pO2 66 L HCO3 22.5 ABG pH 7.40 ABG Total CO2 22.1 ABG O2 Saturation 97.3 ABG Base Excess -3.1 L ABG Hemoglobin 10.7 L ABG Carboxyhemoglobin 2.7 H POC ABG HHb (Measured) 2.6 ABG Methemoglobin 0.8 Hi Test Na Hgb O2 Saturation 93.9 L Liter Flow 3.0 Sodium Potassium Chloride Carbon Dioxide Anion Gap BUN Creatinine Est GFR ( Amer) Est GFR (Non-Af Amer) POC Glucose (mg/dL) 236 H Random Glucose Hemoglobin A1c Calcium Iron TIBC % Saturation Total Bilirubin AST ALT Alkaline Phosphatase Total Protein Albumin Globulin Albumin/Globulin Ratio Triglycerides Cholesterol LDL Cholesterol Direct HDL Cholesterol Vitamin B12 Folate TSH 3rd Generation Attending/Attestation - Attestation I have personally seen and examined this patient.: Yes I have fully participated in the care of the patient.: Yes I have reviewed all pertinent clinical information: Yes Notes (Text): 12/20/18 17:39 Patient seen and examined ABG/chest x-ray and lab results reviewed and discussed with the residents Findings consistent with fluid overload and congestive changes IV Lasix Follow-up saturation and chest x-ray Physical therapy
--- NOTE | 2018-12-20 13:11 | RAD ---
Chest x-ray single frontal view History: Dyspnea. Comparison: 12/16/2018 Findings: Interval removal of an endotracheal tube. Right hilar prominence. Increased consolidative changes noted at the level of the right hilar and infrahilar regions as well as at the left lung base. Venous congestion. Top normal heart size. Biapical pleural thickening with upper lobe granulomatous changes. Degenerative changes in the spine and shoulders. Impression: Interval removal of an endotracheal tube. Right hilar prominence. Increased consolidative changes noted at the level of the right hilar and infrahilar regions as well as at the left lung base. Venous congestion. Top normal heart size. Biapical pleural thickening with upper lobe granulomatous changes.
[2018-12-20] MEDS: (Lantus) Insulin Glargine, Recombinant SC SCH ×2 (21:55→21:57)
[2018-12-20] MEDS: (Novolin R) Insulin Human Regular 100 units/ml vial SC SCH (21:56)
[2018-12-21] MEDS ORDERED: DiphenhydrAMINE 50 mg/ml Inj IVP STA (01:53)
[2018-12-21] MEDS: Simethicone 80 mg Chewtab PO SCH ×3 (06:11→22:17)
[2018-12-21] MEDS: (Novolin R) Insulin Human Regular 100 units/ml vial SC SCH ×4 (09:02→21:17)
[2018-12-21] MEDS: Enoxaparin 40 mg Syringe SC SCH (09:03)
[2018-12-21] MEDS: Pantoprazole 40 mg EC Tab PO SCH (09:06)
--- NOTE | 2018-12-21 10:44 | CP.PCM.PN ---
<Crow Arambula - Last Filed: 12/21/18 13:10> Subjective - Date & Time of Evaluation Date of Evaluation: 12/21/18 Time of Evaluation: 10:41 - Subjective Subjective: Pulm Progress note for dr. Wynne's service. Patient was seen and examined at [facility]. Patient has no acute complaints. She denies SOB, wheezing, CP, abdominal pain. She states she is tolerating her diet well, and ambulating. She states she has passed stool and gas. Objective - Vital Signs/Intake and Output Vital Signs (last 24 hours): Temp Pulse Resp BP Pulse Ox 98.1 F 92 H 18 147/76 95 12/21/18 07:00 12/21/18 07:00 12/21/18 07:00 12/21/18 07:00 12/21/18 07:00 Intake and Output: 12/21/18 12/21/18 06:59 18:59 Intake Total 110.5 Balance 110.5 - Medications Medications: Current Medications Acetaminophen (Tylenol 325mg Tab) 650 mg PO Q6 [facility] Last Admin: 12/21/18 06:11 Dose: 650 mg Amlodipine Besylate (Norvasc) 5 mg PO DAILY [facility] Last Admin: 12/21/18 09:02 Dose: 5 mg Enoxaparin Sodium (Lovenox) 40 mg SC DAILY [facility] Last Admin: 12/21/18 09:03 Dose: 40 mg BUPIVACAINE 0.125%/0.9% NACL (Bupivacaine-Ns 0.125% On-Q Intermediate Teacher) 600 mls @ 4 mls/hr IJ ONCE ONE Stop: 12/24/18 17:19 Last Admin: 12/18/18 12:16 Dose: 4 mls/hr Ibuprofen (Motrin Tab) 600 mg PO QID [facility] Last Admin: 12/21/18 09:03 Dose: 600 mg Insulin Glargine (Lantus) 22 unit SC HS [facility] Last Admin: 12/20/18 21:57 Dose: 22 units Insulin Human Regular (Novolin R) 0 unit SC ACHS [facility]; Protocol Last Admin: 12/21/18 09:02 Dose: 3 u Metformin HCl (Glucophage) 1,000 mg PO BID [facility] Last Admin: 12/21/18 09:01 Dose: 1,000 mg Metoprolol Tartrate (Lopressor) 50 mg PO DAILY [facility] Last Admin: 12/21/18 09:03 Dose: 50 mg Ondansetron HCl (Zofran Inj) 4 mg IVP Q6H PRN PRN Reason: Nausea/Vomiting Last Admin: 12/19/18 11:54 Dose: 4 mg Oxycodone HCl (Oxycodone Immediate Release Tab) 5 mg PO Q4 PRN PRN Reason: Pain, moderate (4-7) Oxycodone HCl (Oxycodone Immediate Release Tab) 10 mg PO Q4 PRN PRN Reason: Pain, severe (8-10) Pantoprazole Sodium (Protonix Ec Tab) 40 mg PO DAILY [facility] Last Admin: 12/21/18 09:06 Dose: 40 mg Phenol/Menthol (Phenaseptic 1.4% Throat [place]) 0.5 ml MT Q2H PRN PRN Reason: Other Simethicone (Mylicon Chew Tab) 80 mg PO Q8 [facility] Last Admin: 12/21/18 06:11 Dose: 80 mg - Labs Labs: 12/20/18 09:17 12/20/18 06:12 - Constitutional Appears: Well, Non-toxic, No Acute Distress - Head Exam Head Exam: NORMAL INSPECTION - Eye Exam Eye Exam: EOMI Pupil Exam: NORMAL ACCOMODATION - ENT Exam ENT Exam: Mucous Membranes Moist, Normal Exam - Respiratory Exam Respiratory Exam: Clear to Ausculation Bilateral - Cardiovascular Exam Cardiovascular Exam: REGULAR RHYTHM, +S1, +S2 - GI/Abdominal Exam GI & Abdominal Exam: Soft, Normal Bowel Sounds - Rectal Exam Rectal Exam: Deferred - Extremities Exam Extremities Exam: Pedal Edema. absent: Calf Tenderness - Neurological Exam Neurological Exam: Oriented x3 - Psychiatric Exam Psychiatric exam: Normal Mood - Skin Skin Exam: Normal Color Assessment and Plan - Assessment and Plan (Free Text) Assessment: 53 year old female with a PMH of DM, HTN, HLD who presented on 12/16 for an elective robot hysterectomy. Pulm was consulted for post-op low oxygen sat. Saturation was 91% on 3L nasal cannula. Patient SOB has since resolved. Plan: A: SOB Abnormal uterine bleeding s/p TRH (improving) Hypokalemia HTN DM2 P: continue Lasix 40 mg - will assess daily need; consider repeat xray after diuresis will give 1 x dose of 40 potassium chloride f/u BMP CXR portable shows venous congestion, normal size heart, biapical pleural thickening with upper lobe granulomatous changes, increased consolidative changes, further management per primary team Disposition: patient has minor venous congestion s/p TRH, will need diuresis and can be discharged once breathing improves; all chronic conditions as per primary PGY-1 Crow Arambula Case d/w Dr. Wynne <Darshan Wynne S - Last Filed: 12/21/18 16:08> Objective - Vital Signs/Intake and Output Vital Signs (last 24 hours): Temp Pulse Resp BP Pulse Ox 98.2 F 77 20 160/76 H 95 12/21/18 15:00 12/21/18 15:00 12/21/18 15:00 12/21/18 15:00 12/21/18 15:00 Intake and Output: 12/21/18 12/21/18 06:59 18:59 Intake Total 110.5 300 Balance 110.5 300 - Medications Medications: Current Medications Acetaminophen (Tylenol 325mg Tab) 650 mg PO Q6 [facility] Last Admin: 12/21/18 12:17 Dose: 650 mg Amlodipine Besylate (Norvasc) 5 mg PO DAILY [facility] Last Admin: 12/21/18 09:02 Dose: 5 mg Enoxaparin Sodium (Lovenox) 40 mg SC DAILY [facility] Last Admin: 12/21/18 09:03 Dose: 40 mg BUPIVACAINE 0.125%/0.9% NACL (Bupivacaine-Ns 0.125% On-Q Intermediate Teacher) 600 mls @ 4 mls/hr IJ ONCE ONE Stop: 12/24/18 17:19 Last Admin: 12/18/18 12:16 Dose: 4 mls/hr Ibuprofen (Motrin Tab) 600 mg PO QID [facility] Last Admin: 12/21/18 13:42 Dose: 600 mg Insulin Glargine (Lantus) 22 unit SC HS [facility] Last Admin: 12/20/18 21:57 Dose: 22 units Insulin Human Regular (Novolin R) 0 unit SC ACHS [facility]; Protocol Last Admin: 12/21/18 12:18 Dose: 3 u Metformin HCl (Glucophage) 1,000 mg PO BID [facility] Last Admin: 12/21/18 09:01 Dose: 1,000 mg Metoprolol Tartrate (Lopressor) 50 mg PO DAILY [facility] Last Admin: 12/21/18 09:03 Dose: 50 mg Ondansetron HCl (Zofran Inj) 4 mg IVP Q6H PRN PRN Reason: Nausea/Vomiting Last Admin: 12/19/18 11:54 Dose: 4 mg Oxycodone HCl (Oxycodone Immediate Release Tab) 5 mg PO Q4 PRN PRN Reason: Pain, moderate (4-7) Oxycodone HCl (Oxycodone Immediate Release Tab) 10 mg PO Q4 PRN PRN Reason: Pain, severe (8-10) Pantoprazole Sodium (Protonix Ec Tab) 40 mg PO DAILY [facility] Last Admin: 12/21/18 09:06 Dose: 40 mg Phenol/Menthol (Phenaseptic 1.4% Throat [place]) 0.5 ml MT Q2H PRN PRN Reason: Other Potassium Chloride (K-Dur 20 Meq Er Tab) 40 meq PO DAILY [facility] Last Admin: 12/21/18 13:42 Dose: 40 meq Simethicone (Mylicon Chew Tab) 80 mg PO Q8 [facility] Last Admin: 12/21/18 13:42 Dose: 80 mg - Labs Labs: 12/20/18 09:17 12/21/18 07:48 Attending/Attestation - Attestation I have personally seen and examined this patient.: Yes I have fully participated in the care of the patient.: Yes I have reviewed all pertinent clinical information, including history, physical exam and plan: Yes Notes (Text): 12/21/18 16:07 Patient seen and examined. Shortness of breath much improved Received Lasix yesterday and diuresed Potassium replacement Physical therapy Stable from pulmonary standpoint
[2018-12-21 13:11] LABS: BLOOD UREA NITROGEN 7 mg/dL (7-17); CALCIUM 7.5 mg/dl (8.6-10.4); GFR NON-AFRICAN AMERICAN > 60
[2018-12-21] MEDS: Potassium Chloride 20 mEq ER Tab PO SCH (13:42)
[2018-12-21] MEDS: oxyCODONE 5 mg Immediate Release Tab PO PRN (20:43)
[2018-12-21] MEDS ORDERED: cefTRIAXone IV 1 gm in Dextros 1 GM in Dextrose 5% In Water 50 ML IVPB SCH (21:15)
--- NOTE | 2018-12-21 21:57 | CP.PCM.CON ---
History of Present Illness - History of Present Illness History of Present Illness: INFECTIOUS DISEASE CONSULT; HPI: 53 year old female with PMHx of DM, HTN, HLD, uterine fibroids s/p elective total robotic hysterectomy on 12/16/18 is after transfer from ICU to the floor. After an extensive surgery requiring lysis of multiple adhesions and placement of uretral stents patient was transfered to ICU and remained intubated. Patient was extubated on 12/17 after weaning trial. She was held in ICU until she stabilized and began making urine. She was transfered to med/surg floor on 12/19. Here she has been monitored and treated for post op pain with oxycodone motrin, tylenol, as well as bupivicane subQ pump. Patient began having trouble breathing on 12/20. Her oxygen saturation on room air was as low as 88%. On 3L oxygen she improved to 91%. Patient states she felt weak and short of breath. patient presently breathing better . c/o lower abdominal pain. INFECTIOUS DISEASE CONSULT REQUESTED BY DR MCMILLAN FOR UTI URINE CULTURE SHOWING GRAM-NEGATIVE RODS IN THE URINE. PATIENT DENIES ANY FEVER OR CHILLS. PATIENT DOES NOT HAVE A Ann CATHETER AT PRESENT BUT UNDERWENT PLACEMENT OF URETERAL STENTS. PATIENT DENIES ANY EXPECTORATION, SHORTNESS OF BREATH OR HEMOPTYSIS. pATIENT PRESENTLY ON iv rOCEPHIN WHICH WAS ORDERED TODAY BY PMD She denies history of asmtha or COPD. ROS: as listed in HPI PMHx: DM, HTN, HLD, Fibroids SHx: robotic hysterectomy, ureteral stents Social: denies cigarette or alcohol use Allergies: denies allergies Review of Systems - Constitutional Constitutional: Malaise. absent: Chills, Fever - EENT Eyes: absent: Change in Vision Nose/Mouth/Throat: absent: Change in Voice, Dry Mouth, Mouth Lesions - Cardiovascular Cardiovascular: Pedal Edema. absent: Chest Pain - Respiratory Respiratory: absent: Cough - Gastrointestinal Gastrointestinal: Abdominal Pain (LOWER ABDOMINAL PAIN.). absent: Constipation, Diarrhea, Nausea - Genitourinary Genitourinary: Urinary Frequency, Voiding Freq/Small Amts. absent: Hematuria, Freq UTI - Menstruation Menstruation: S/P Hysterectomy - Neurological Neurological: Dizziness - Endocrine Endocrine: Fatigue - Hematologic/Lymphatic Hematologic: As Per HPI. absent: Easy Bleeding, Easy Bruising Past Patient History - Past Medical History & Family History Past Medical History?: Yes - Past Social History Smoking Status: Never Smoked Chewing Tobacco Use: No Cigar Use: No Alcohol: None Drugs: Denies - CARDIAC Hx Cardiac Disorders: Yes Hx Hypercholesterolemia: Yes Hx Hypertension: Yes - PULMONARY Hx Respiratory Disorders: No - NEUROLOGICAL Hx Neurological Disorder: No - HEENT Hx HEENT Problems: Yes Hx Cataracts: Yes (RIGHT EYE) - RENAL Hx Chronic Kidney Disease: No - ENDOCRINE/METABOLIC Hx Diabetes Mellitus Type 2: Yes - HEMATOLOGICAL/ONCOLOGICAL Hx Blood Disorders: No - INTEGUMENTARY Hx Dermatological Problems: No - MUSCULOSKELETAL/RHEUMATOLOGICAL Hx Musculoskeletal Disorders: No - GASTROINTESTINAL Hx Gastrointestinal Disorders: No - GENITOURINARY/GYNECOLOGICAL Hx Genitourinary Disorders: Yes Other/Comment: HX: FIBROID UTERUS - PSYCHIATRIC Hx Psychophysiologic Disorder: No - SURGICAL HISTORY Hx Surgeries: Yes Hx Section: Yes - ANESTHESIA Hx Anesthesia: Yes Hx Anesthesia Reactions: No Hx Malignant Hyperthermia: No Has any member of the family had a problem w/ anesthesia?: No Meds Allergies/Adverse Reactions: Allergies Allergy/AdvReac Type Severity Reaction Status Date / Time No Known Allergies Allergy Unverified 12/08/18 10:33 - Medications Medications: Current Medications Acetaminophen (Tylenol 325mg Tab) 650 mg PO Q6 [facility] Last Admin: 12/21/18 17:32 Dose: Not Given Amlodipine Besylate (Norvasc) 5 mg PO DAILY [facility] Last Admin: 12/21/18 09:02 Dose: 5 mg Diphenhydramine HCl (Benadryl) 25 mg PO HS PRN PRN Reason: Insomnia Enoxaparin Sodium (Lovenox) 40 mg SC DAILY [facility] Last Admin: 12/21/18 09:03 Dose: 40 mg BUPIVACAINE 0.125%/0.9% NACL (Bupivacaine-Ns 0.125% On-Q Elevator Serviceman) 600 mls @ 4 mls/hr IJ ONCE ONE Stop: 12/24/18 17:19 Last Admin: 12/18/18 12:16 Dose: 4 mls/hr Imipenem/Cilastatin Sodium 500 (mg/ Dextrose) 100 mls @ 100 mls/hr IVPB Q8H [facility]; Protocol Amikacin Sulfate 1,000 mg/ (Sodium Chloride) 254 mls @ 250 mls/hr IVPB STAT [facility]; Protocol Ibuprofen (Motrin Tab) 600 mg PO QID [facility] Last Admin: 12/21/18 17:32 Dose: Not Given Insulin Glargine (Lantus) 22 unit SC HS [facility] Last Admin: 12/20/18 21:57 Dose: 22 units Insulin Human Regular (Novolin R) 0 unit SC ACHS [facility]; Protocol Last Admin: 12/21/18 21:17 Dose: Not Given Metformin HCl (Glucophage) 1,000 mg PO BID [facility] Last Admin: 12/21/18 17:30 Dose: 1,000 mg Metoprolol Tartrate (Lopressor) 50 mg PO DAILY [facility] Last Admin: 12/21/18 09:03 Dose: 50 mg Ondansetron HCl (Zofran Inj) 4 mg IVP Q6H PRN PRN Reason: Nausea/Vomiting Last Admin: 12/19/18 11:54 Dose: 4 mg Oxycodone HCl (Oxycodone Immediate Release Tab) 5 mg PO Q4 PRN PRN Reason: Pain, moderate (4-7) Last Admin: 12/21/18 20:43 Dose: 5 mg Oxycodone HCl (Oxycodone Immediate Release Tab) 10 mg PO Q4 PRN PRN Reason: Pain, severe (8-10) Pantoprazole Sodium (Protonix Ec Tab) 40 mg PO DAILY [facility] Last Admin: 12/21/18 09:06 Dose: 40 mg Phenol/Menthol (Phenaseptic 1.4% Throat [place]) 0.5 ml MT Q2H PRN PRN Reason: Other Potassium Chloride (K-Dur 20 Meq Er Tab) 40 meq PO DAILY [facility] Last Admin: 12/21/18 13:42 Dose: 40 meq Simethicone (Mylicon Chew Tab) 80 mg PO Q8 [facility] Last Admin: 12/21/18 13:42 Dose: 80 mg Physical Exam - Constitutional Appears: No Acute Distress - Head Exam Head Exam: NORMAL INSPECTION - Eye Exam Eye Exam: EOMI, PERRL - ENT Exam ENT Exam: Normal Oropharynx - Neck Exam Neck exam: Positive for: Normal Inspection - Respiratory Exam Respiratory Exam: Rales (BASILAR), NORMAL BREATHING PATTERN - Cardiovascular Exam Cardiovascular Exam: REGULAR RHYTHM, +S1, +S2 - GI/Abdominal Exam GI & Abdominal Exam: Normal Bowel Sounds, Soft, Tenderness (SUPRAPUBIC MILD TENDERNESS.). absent: Distended, Guarding - Extremities Exam Extremities exam: Positive for: pedal edema (ONE PLUS), pedal pulses present. Negative for: calf tenderness - Back Exam Back exam: absent: CVA tenderness (L), CVA tenderness (R) - Neurological Exam Neurological exam: Alert, CN II-XII Intact, Oriented x3, Reflexes Normal - Psychiatric Exam Psychiatric exam: Normal Mood - Skin Skin Exam: Normal Color, Warm Results - Vital Signs Recent Vital Signs: Last Vital Signs Temp 98.2 F 12/21/18 15:00 Pulse 77 12/21/18 15:00 Resp 20 12/21/18 15:00 BP 160/76 H 12/21/18 15:00 Pulse Ox 95 12/21/18 15:00 - Labs Result Diagrams: 12/22/18 07:44 12/22/18 07:44 Labs: Laboratory Results - last 24 hr 12/21/18 12/21/18 12/21/18 06:27 07:48 07:48 Sodium 133 Potassium 3.5 L Chloride 107 Carbon Dioxide 26 Anion Gap 3 L BUN 7 Creatinine 0.6 L Est GFR ( Amer) > 60 Est GFR (Non-Af Amer) > 60 POC Glucose (mg/dL) 267 H Random Glucose 225 H Calcium 7.5 L Free T4 1.26 Free T3 pg/mL 2.48 L TSH 3rd Generation 2.27 12/21/18 12/21/18 12/21/18 11:21 15:59 21:06 Sodium Potassium Chloride Carbon Dioxide Anion Gap BUN Creatinine Est GFR ( Amer) Est GFR (Non-Af Amer) POC Glucose (mg/dL) 273 H 198 H 217 H Random Glucose Calcium Free T4 Free T3 pg/mL TSH 3rd Generation - Imaging and Cardiology Chest x-ray Status: Report reviewed by me (CHEST X-RAY 12/20/18 BILATERAL VENOUS CONGESTION. bIAPICAL GRANULOMATOUS CHANGES.) Assessment & Plan (1) UTI (urinary tract infection) Status: Acute (2) History of robot-assisted laparoscopic hysterectomy Status: Acute (3) Morbid obesity Status: Acute (4) Diabetes Status: Acute - Assessment and Plan (Free Text) Plan: PLAN; PANCULTURES DC IV rOCEPHIN START iv pRIMAXIN 500 MG EVERY 8 HOURLY TO COVER FOR ENTEROBACTER AND kLEBSIELLA. 12/21/18 ADD iv AMIKACIN 1000 MG iv PIGGYBACK STAT DOSE AFTER BLOOD CULTURES 2 SETS 15 MINUTES APART. CASE DISCUSSED WITH THE STAFF. RN CALLED TO GET STAT DOSE OF iv AMIKACIN. F/U CULTURES TO ADJUST ANTIBIOTICS. WE'LL FOLLOW ALONG WITH YOU. THANK YOU..
[2018-12-21] MEDS ORDERED: cefTRIAXone IV 1 gm in Dextros 50 ML IVPB SCH (22:00)
[2018-12-21] MEDS: (Lantus) Insulin Glargine, Recombinant SC SCH (22:19)
--- NOTE | 2018-12-21 22:28 | CP.PCM.CON ---
History of Present Illness - History of Present Illness History of Present Illness: uncontrolled IDDM Past Patient History - Past Medical History & Family History Past Medical History?: Yes - Past Social History Smoking Status: Never Smoked Chewing Tobacco Use: No Cigar Use: No Alcohol: None Drugs: Denies - CARDIAC Hx Cardiac Disorders: Yes Hx Hypercholesterolemia: Yes Hx Hypertension: Yes - PULMONARY Hx Respiratory Disorders: No - NEUROLOGICAL Hx Neurological Disorder: No - HEENT Hx HEENT Problems: Yes Hx Cataracts: Yes (RIGHT EYE) - RENAL Hx Chronic Kidney Disease: No - ENDOCRINE/METABOLIC Hx Diabetes Mellitus Type 2: Yes - HEMATOLOGICAL/ONCOLOGICAL Hx Blood Disorders: No - INTEGUMENTARY Hx Dermatological Problems: No - MUSCULOSKELETAL/RHEUMATOLOGICAL Hx Musculoskeletal Disorders: No - GASTROINTESTINAL Hx Gastrointestinal Disorders: No - GENITOURINARY/GYNECOLOGICAL Hx Genitourinary Disorders: Yes Other/Comment: HX: FIBROID UTERUS - PSYCHIATRIC Hx Psychophysiologic Disorder: No - SURGICAL HISTORY Hx Surgeries: Yes Hx Section: Yes - ANESTHESIA Hx Anesthesia: Yes Hx Anesthesia Reactions: No Hx Malignant Hyperthermia: No Has any member of the family had a problem w/ anesthesia?: No Meds Allergies/Adverse Reactions: Allergies Allergy/AdvReac Type Severity Reaction Status Date / Time No Known Allergies Allergy Unverified 12/08/18 10:33 - Medications Medications: Current Medications Acetaminophen (Tylenol 325mg Tab) 650 mg PO Q6 [facility] Last Admin: 12/21/18 17:32 Dose: Not Given Amlodipine Besylate (Norvasc) 5 mg PO DAILY [facility] Last Admin: 12/21/18 09:02 Dose: 5 mg Diphenhydramine HCl (Benadryl) 25 mg PO HS PRN PRN Reason: Insomnia Last Admin: 12/21/18 22:18 Dose: 25 mg Enoxaparin Sodium (Lovenox) 40 mg SC DAILY [facility] Last Admin: 12/21/18 09:03 Dose: 40 mg BUPIVACAINE 0.125%/0.9% NACL (Bupivacaine-Ns 0.125% On-Q Accounting Generalist) 600 mls @ 4 mls /hr IJ ONCE ONE Stop: 12/24/18 17:19 Last Admin: 12/18/18 12:16 Dose: 4 mls/hr Amikacin Sulfate 1,000 mg/ (Sodium Chloride) 254 mls @ 250 mls/hr IVPB ONCE ONE; Protocol Stop: 12/21/18 23:30 Last Admin: 12/21/18 22:18 Dose: 250 mls/hr Imipenem/Cilastatin Sodium 500 (mg/ Sodium Chloride) 100 mls @ 100 mls/hr IVPB Q8H [facility]; Protocol Ibuprofen (Motrin Tab) 600 mg PO QID [facility] Last Admin: 12/21/18 22:18 Dose: 600 mg Insulin Glargine (Lantus) 22 unit SC HS [facility] Last Admin: 12/21/18 22:19 Dose: 22 units Insulin Human Regular (Novolin R) 0 unit SC ACHS [facility]; Protocol Last Admin: 12/21/18 21:17 Dose: Not Given Metformin HCl (Glucophage) 1,000 mg PO BID [facility] Last Admin: 12/21/18 17:30 Dose: 1,000 mg Metoprolol Tartrate (Lopressor) 50 mg PO DAILY [facility] Last Admin: 12/21/18 09:03 Dose: 50 mg Ondansetron HCl (Zofran Inj) 4 mg IVP Q6H PRN PRN Reason: Nausea/Vomiting Last Admin: 12/19/18 11:54 Dose: 4 mg Oxycodone HCl (Oxycodone Immediate Release Tab) 5 mg PO Q4 PRN PRN Reason: Pain, moderate (4-7) Last Admin: 12/21/18 20:43 Dose: 5 mg Oxycodone HCl (Oxycodone Immediate Release Tab) 10 mg PO Q4 PRN PRN Reason: Pain, severe (8-10) Pantoprazole Sodium (Protonix Ec Tab) 40 mg PO DAILY [facility] Last Admin: 12/21/18 09:06 Dose: 40 mg Phenol/Menthol (Phenaseptic 1.4% Throat [place]) 0.5 ml MT Q2H PRN PRN Reason: Other Potassium Chloride (K-Dur 20 Meq Er Tab) 40 meq PO DAILY [facility] Last Admin: 12/21/18 13:42 Dose: 40 meq Simethicone (Mylicon Chew Tab) 80 mg PO Q8 [facility] Last Admin: 12/21/18 22:17 Dose: 80 mg Results - Vital Signs Recent Vital Signs: Last Vital Signs Temp 98.2 F 12/21/18 15:00 Pulse 77 12/21/18 15:00 Resp 20 12/21/18 15:00 BP 160/76 H 12/21/18 15:00 Pulse Ox 95 12/21/18 15:00 - Labs Result Diagrams: 12/20/18 09:17 12/21/18 07:48 Labs: Laboratory Results - last 24 hr 12/21/18 12/21/18 12/21/18 06:27 07:48 07:48 Sodium 133 Potassium 3.5 L Chloride 107 Carbon Dioxide 26 Anion Gap 3 L BUN 7 Creatinine 0.6 L Est GFR ( Amer) > 60 Est GFR (Non-Af Amer) > 60 POC Glucose (mg/dL) 267 H Random Glucose 225 H Calcium 7.5 L Free T4 1.26 Free T3 pg/mL 2.48 L TSH 3rd Generation 2.27 12/21/18 12/21/18 12/21/18 11:21 15:59 21:06 Sodium Potassium Chloride Carbon Dioxide Anion Gap BUN Creatinine Est GFR ( Amer) Est GFR (Non-Af Amer) POC Glucose (mg/dL) 273 H 198 H 217 H Random Glucose Calcium Free T4 Free T3 pg/mL TSH 3rd Generation Assessment & Plan (1) Diabetes mellitus, insulin dependent (IDDM), uncontrolled Assessment and Plan: Endocrine consult reason for consult: uncontrolled diabetes Source: patient and chart review Ms. Canales is 53 y/o admitted for fibroid surgery s/p robotic Total hysterectomy on antibiotics as per pt. has DM 2009 (+) neuropathy , (-) retinopathy , (-) nephropathy (-) CAD (-) PVD outpatient diabetes management regimen : lantus 40 units bid ,metformin 1g po bid endocrine consult called yesterday glucose 300's , insulin regimen was adjusted blood glucose log :190-200 NO hypoglycemia Allergy NKDA Past medical history:HTN , hyperlipidemia , fibroid , cataract Past surgical history: CS , heart surgery as a child & MAXIM BSO Psychiatry history: h/o anxiety off meds Social history: denies smoking , ETOH use 0r illicit drug use Family history: mother with dm ROS: Constitutional: denies fever, tiredness/weakness. HEENT: denies earache, change in voice .Respiratory: denies cough, sob . CVS :no chest pain, no palpitations . Abdomen: no abdominal pain, no nausea /vomiting, no change bowel movement. 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 Extremities: no edema, no tremors. Skin: no itching, no rash Physical exam Well-developed AAO x3 , ,NAD , daughter by bed side VSS HEENT: norm cephalic, atraumatic, no lid lag , no exophthalmos NECK: supple, no palpable lymphadenopathy THYROID: no palpable thyromegaly, not tender CHEST: fair air entry, bilateral, CVS: S1,S2 ABDOMEN: bowel sound present, benign, obese, no wide purple striae , no bruises EXTREMITIES: no edema, clubbing or cyanosis, no palpable hand tremors Skin: acanthosis nigricans -lab: tsh 2.27 , ft3 2.48 , ft4 1.26 , a1c 11.4 , cmp wnl Assessment: uncontrolled IDDM with neuropathy euthyroid sick syndrom obesity , morbid s/p total hystrectomy for uterine fibroid plan : increase Lantus 25 units @ hs novolog stopped contuinue Novoloin R low dose coverage tid & hs , give half of the coverage s dose @ bed time start novoloin R 4 units tid with meals if eat > 60% increase metformin 1g po bid with meals plan communicated with nurse in charge who read back the instructions correctly Thank you for allowing me to participate in the care of the patient, we will follow with you. Manuel Rubio # [phone] office Fridays & Saturdays address: [address] [place] [address] ,phone # [phone] ,FAX [phone] Status: Acute (2) Diabetes mellitus with neurological manifestations, uncontrolled Status: Acute (3) Morbid obesity Status: Acute (4) History of robot-assisted laparoscopic hysterectomy Status: Acute (5) Euthyroid sick syndrome Status: Acute - Date & Time Date: 12/21/18 Time: 08:30
[2018-12-21] MEDS ORDERED: Amikacin Sulfate 1,000 MG in Sodium Chloride 0.9% 250 ML IVPB ONE (22:30)
[2018-12-22] MEDS: (Lantus) Insulin Glargine, Recombinant SC SCH ×2 (00:29→21:53)
--- NOTE | 2018-12-22 01:04 | PN ---
DATE: 12/21/2018 SUBJECTIVE: The patient is a 53-year-old female. The patient was seen and examined at the bedside on 12/21/2018, looking comfortable. was sitting on the bedside. No fever, no chills. Abdominal pain is getting better. No headache or dizziness. No shortness of breath. No wheezing. Tolerating her diet very well, ambulating, doing physical therapy. PHYSICAL EXAMINATION: VITAL SIGNS: Temperature 98.1, pulse 92, respiratory rate 18, blood pressure 147/76, and pulse oximetry 95. HEENT: Head is normocephalic and atraumatic. Eyes PERRLA. Extraocular movements are intact. Conjunctivae clear. Nose patent. Mucous membranes moist. NECK: Supple. No carotid bruits, JVD, or thyromegaly. CHEST: Bilaterally symmetrical. HEART: S1 and S2 positive. LUNGS: Clear to auscultation. ABDOMEN: Soft. Bowel sounds present. No organomegaly. EXTREMITIES: No edema. No cyanosis. NEUROLOGICAL: The patient is awake and alert, moving all four extremities. No focal deficits. MEDICATIONS: Tylenol, Norvasc, Lovenox, ibuprofen, insulin, metoprolol, Zofran, oxycodone, pantoprazole, Mylicon. LABORATORY DATA: White blood cell is 9.8, hemoglobin 9.9, hematocrit 30.5, platelets 307. Sodium 132, potassium 3.6, BUN 14, creatinine 0.7, and glucose 211. ASSESSMENT AND PLAN: Ms. Deb Canales is a 53-year-old female with anemia, hyperchloremia, diabetes mellitus, history of hypertension, hypercholesteremia, elective robotic hysterectomy done. Postoperatively, the patient has low oxygen saturation, it was 91% on 3 liter nasal cannula. Shortness of breath now resolved. History of abnormal uterine bleeding. Electrolyte imbalance improved. Continue Lasix. Chest x-ray shows venous congestion, biapical pleural thickening with upper lobe granulomatous changes, anterior consolidative changes. We gave diuresis because of congestion. Urinary tract infection; started Rocephin. Put Infectious Disease consult with Dr. Bree Sutton. Repeat labs. We will follow up. Emmy Joy MD MTDD
[2018-12-22] MEDS: Simethicone 80 mg Chewtab PO SCH ×3 (05:53→21:21)
--- NOTE | 2018-12-22 06:22 | PN ---
DATE: 12/20/2018 SUBJECTIVE: The patient was seen and examined on the bedside on 12/20/2018. The patient's pain is under control with medication. No fatigue. No syncope. No hematuria or hematochezia. No headache or dizziness. No chest pain or palpitation. Resting on the bedside. PHYSICAL EXAMINATION: VITAL SIGNS: Temperature 98.7, pulse 99, respiratory rate 20, blood pressure 160/67, pulse oximetry 100%. HEENT: Head: Normocephalic, atraumatic. Eyes: PERRLA. Extraocular movements are intact. Conjunctivae clear. Nose patent. Mucous membranes moist. NECK: Supple. No carotid bruits. No JVD or thyromegaly. CHEST: Bilaterally symmetrical. HEART: S1, S2 positive. LUNGS: Clear to auscultation. ABDOMEN: tenderness on the surgical site. EXTREMITIES: No edema. No cyanosis. NEUROLOGIC: The patient is awake, alert. Moving all four extremities. No focal deficits. MEDICATIONS: Norvasc, Lovenox, lactated Ringers, insulin, Toradol, metformin, oxycodone, pantoprazole, Mylicon. LABORATORY DATA: White blood cell 7.9, hemoglobin 9.5, hematocrit 28.2, platelets 264. Sodium 132, potassium 3.6, BUN 14, creatinine 0.7, and glucose 211. ASSESSMENT: Mrs. Canales is a 53-year-old lady presenting with hypochloremia, diabetes mellitus, hypertension, morbid obesity, polycystic ovarian disease for robotic hysterectomy with myomectomy. Doing very well postoperatively. Postoperative pain is under control. Mild hypokalemia. The patient is started Percocet. Out of bed, physical therapy. She was on Lovenox. Gastrointestinal, deep venous thrombosis prophylaxis. Repeat labs. We will follow up. Emmy Joy MD MTDD
[2018-12-22] MEDS: (Novolin R) Insulin Human Regular 100 units/ml vial SC SCH ×7 (07:30→21:17)
[2018-12-22 07:52] LABS: HEMOGLOBIN 8.9 g/dL (11.0-16.0); MEAN CORPUSCULAR HEMOGLOBIN 30.7 pg (27.0-31.0); MEAN CORPUSCULAR HGB CONC 34.4 g/dL (33.0-37.0); MEAN PLATELET VOLUME 9.5 fL (7.2-11.7); RBC 2.91 Mil/uL (3.80-5.20); RED CELL DISTRIBUTION WIDTH 13.8 % (11.5-14.5); WHITE BLOOD COUNT 9.7 K/uL (4.8-10.8)
[2018-12-22 07:56] LABS: MEAN CELL VOLUME 89.4 fL (81.0-99.0)
[2018-12-22 08:10] LABS: BLOOD UREA NITROGEN 7 mg/dL (7-17); CALCIUM 7.5 mg/dl (8.6-10.4); GFR NON-AFRICAN AMERICAN > 60
--- NOTE | 2018-12-22 09:27 | CP.PCM.PN ---
<Crow Arambula - Last Filed: 12/22/18 13:59> Subjective - Date & Time of Evaluation Date of Evaluation: 12/22/18 Time of Evaluation: 09:24 - Subjective Subjective: Pulmonary Progress note for Dr. Wynne's service. Patient was seen and examined at [facility]. Patient has no acute complaints. She states she was feeling anxious yesterday and needed a breathing treatment. Patient also said she has a UTI. She admits to suprapubic pain. She said her sugar was in the 160s; the best its been in a long time. Lastly, she said her d rains were removed yesterday. Currently, she denies SOB, wheezing, CP, and dysuria. She states she is tolerating her diet well, and ambulating. She states she has passed stool and gas. Objective - Vital Signs/Intake and Output Vital Signs (last 24 hours): Temp Pulse Resp BP Pulse Ox 98.2 F 98 H 20 169/66 H 95 12/22/18 07:10 12/22/18 07:10 12/22/18 07:10 12/22/18 07:10 12/22/18 07:10 Intake and Output: 12/22/18 12/22/18 06:59 18:59 Intake Total 720 Balance 720 - Medications Medications: Current Medications Acetaminophen (Tylenol 325mg Tab) 650 mg PO Q6 [facility] Last Admin: 12/22/18 05:52 Dose: 650 mg Amlodipine Besylate (Norvasc) 5 mg PO DAILY [facility] Last Admin: 12/21/18 09:02 Dose: 5 mg Diphenhydramine HCl (Benadryl) 25 mg PO HS PRN PRN Reason: Insomnia Last Admin: 12/21/18 22:18 Dose: 25 mg Enoxaparin Sodium (Lovenox) 40 mg SC DAILY [facility] Last Admin: 12/21/18 09:03 Dose: 40 mg BUPIVACAINE 0.125%/0.9% NACL (Bupivacaine-Ns 0.125% On-Q [employer] Marker) 600 mls @ 4 mls/hr IJ ONCE ONE Stop: 12/24/18 17:19 Last Admin: 12/18/18 12:16 Dose: 4 mls/hr Imipenem/Cilastatin Sodium 500 (mg/ Sodium Chloride) 100 mls @ 100 mls/hr IVPB Q8H [facility]; Protocol Last Admin: 12/22/18 00:07 Dose: 100 mls/hr Ibuprofen (Motrin Tab) 600 mg PO QID [facility] Last Admin: 12/21/18 22:18 Dose: 600 mg Insulin Glargine (Lantus) 25 unit SC HS [facility] Last Admin: 12/22/18 00:29 Dose: Not Given Insulin Human Regular (Novolin R) 0 unit SC ACHS [facility]; Protocol Last Admin: 12/22/18 07:30 Dose: Not Given Insulin Human Regular (Novolin R) 4 unit SC TIDCC [facility] Metformin HCl (Glucophage) 1,000 mg PO BID [facility] Last Admin: 12/21/18 17:30 Dose: 1,000 mg Metoprolol Tartrate (Lopressor) 50 mg PO DAILY [facility] Last Admin: 12/21/18 09:03 Dose: 50 mg Ondansetron HCl (Zofran Inj) 4 mg IVP Q6H PRN PRN Reason: Nausea/Vomiting Last Admin: 12/19/18 11:54 Dose: 4 mg Oxycodone HCl (Oxycodone Immediate Release Tab) 5 mg PO Q4 PRN PRN Reason: Pain, moderate (4-7) Last Admin: 12/21/18 20:43 Dose: 5 mg Oxycodone HCl (Oxycodone Immediate Release Tab) 10 mg PO Q4 PRN PRN Reason: Pain, severe (8-10) Pantoprazole Sodium (Protonix Ec Tab) 40 mg PO DAILY [facility] Last Admin: 12/21/18 09:06 Dose: 40 mg Phenol/Menthol (Phenaseptic 1.4% Throat [place]) 0.5 ml MT Q2H PRN PRN Reason: Other Potassium Chloride (K-Dur 20 Meq Er Tab) 40 meq PO DAILY [facility] Last Admin: 12/21/18 13:42 Dose: 40 meq Simethicone (Mylicon Chew Tab) 80 mg PO Q8 [facility] Last Admin: 12/22/18 05:53 Dose: 80 mg - Labs Labs: 12/22/18 07:44 12/22/18 07:44 - Constitutional Appears: Well, Non-toxic, No Acute Distress - Head Exam Head Exam: NORMAL INSPECTION - Eye Exam Eye Exam: EOMI, Normal appearance Pupil Exam: NORMAL ACCOMODATION - ENT Exam ENT Exam: Mucous Membranes Moist - Neck Exam Neck Exam: Normal Inspection - Respiratory Exam Respiratory Exam: Clear to Ausculation Bilateral, NORMAL BREATHING PATTERN. absent: Rales, Rhonchi, Wheezes - Cardiovascular Exam Cardiovascular Exam: REGULAR RHYTHM, +S1, +S2 - GI/Abdominal Exam GI & Abdominal Exam: Normal Bowel Sounds - Rectal Exam Rectal Exam: Deferred - Extremities Exam Extremities Exam: Pedal Edema - Neurological Exam Neurological Exam: Oriented x3 - Psychiatric Exam Psychiatric exam: Normal Mood - Skin Skin Exam: Dry, Intact Assessment and Plan - Assessment and Plan (Free Text) Assessment: 53 year old female with a PMH of DM, HTN, HLD, PCOS who presented on 12/16 for an elective robot hysterectomy. Pulm was consulted for post-op low oxygen sat. Saturation was 91% on 3L nasal cannula. Patient SOB has since resolved. Plan: A: SOB Abnormal uterine bleeding s/p TRH (improving) Hypokalemia Anemia HTN DM2 P: continue Lasix 20 mg - will assess daily need; consider repeat xray after diuresis will give 1 x dose of 40 potassium chloride f/u BMP Continue to monitor H/H Recommend colonoscopy, repeat CBC. Anemia like related to abnormal TRH, and bleeding. consider tranfusion if Hgb drops below 7 CXR portable shows venous congestion, normal size heart, biapical pleural thickening with upper lobe granulomatous changes, increased consolidative vidal es, further management per primary team Disposition: patient has minor venous congestion and anemia s/p TRH, will need diuresis and can be discharged once breathing improves; all chronic conditions as per primary PGY-1 Crow Arambula Case d/w Dr. Wynne <Darshan Wynne S - Last Filed: 12/22/18 14:51> Objective - Vital Signs/Intake and Output Vital Signs (last 24 hours): Temp Pulse Resp BP Pulse Ox 98.2 F 98 H 20 169/66 H 95 12/22/18 07:10 12/22/18 07:10 12/22/18 07:10 12/22/18 07:10 12/22/18 07:10 Intake and Output: 12/22/18 12/22/18 06:59 18:59 Intake Total 720 Balance 720 - Medications Medications: Current Medications Acetaminophen (Tylenol 325mg Tab) 650 mg PO Q6 [facility] Last Admin: 12/22/18 05:52 Dose: 650 mg Amlodipine Besylate (Norvasc) 5 mg PO DAILY [facility] Last Admin: 12/22/18 09:39 Dose: 5 mg Diphenhydramine HCl (Benadryl) 25 mg PO HS PRN PRN Reason: Insomnia Last Admin: 12/21/18 22:18 Dose: 25 mg Enoxaparin Sodium (Lovenox) 40 mg SC DAILY [facility] Last Admin: 12/22/18 09:38 Dose: 40 mg BUPIVACAINE 0.125%/0.9% NACL (Bupivacaine-Ns 0.125% On-Q [employer] Marker) 600 mls @ 4 mls/hr IJ ONCE ONE Stop: 12/24/18 17:19 Last Admin: 12/18/18 12:16 Dose: 4 mls/hr Imipenem/Cilastatin Sodium 500 (mg/ Sodium Chloride) 100 mls @ 100 mls/hr IVPB Q8H [facility]; Protocol Last Admin: 12/22/18 09:00 Dose: 100 mls/hr Ibuprofen (Motrin Tab) 600 mg PO QID [facility] Last Admin: 12/22/18 13:45 Dose: 600 mg Insulin Glargine (Lantus) 25 unit SC HS [facility] Last Admin: 12/22/18 00:29 Dose: Not Given Insulin Human Regular (Novolin R) 0 unit SC ACHS [facility]; Protocol Last Admin: 12/22/18 11:19 Dose: 2 u Insulin Human Regular (Novolin R) 4 unit SC TIDCC [facility] Last Admin: 12/22/18 12:40 Dose: Not Given Metformin HCl (Glucophage) 1,000 mg PO BID [facility] Last Admin: 12/22/18 09:39 Dose: 1,000 mg Metoprolol Tartrate (Lopressor) 50 mg PO DAILY [facility] Last Admin: 12/22/18 09:39 Dose: 50 mg Ondansetron HCl (Zofran Inj) 4 mg IVP Q6H PRN PRN Reason: Nausea/Vomiting Last Admin: 12/19/18 11:54 Dose: 4 mg Oxycodone HCl (Oxycodone Immediate Release Tab) 5 mg PO Q4 PRN PRN Reason: Pain, moderate (4-7) Last Admin: 12/21/18 20:43 Dose: 5 mg Oxycodone HCl (Oxycodone Immediate Release Tab) 10 mg PO Q4 PRN PRN Reason: Pain, severe (8-10) Last Admin: 12/22/18 09:37 Dose: 10 mg Pantoprazole Sodium (Protonix Ec Tab) 40 mg PO DAILY [facility] Last Admin: 12/22/18 09:39 Dose: 40 mg Phenol/Menthol (Phenaseptic 1.4% Throat [place]) 0.5 ml MT Q2H PRN PRN Reason: Other Potassium Chloride (K-Dur 20 Meq Er Tab) 40 meq PO DAILY [facility] Last Admin: 12/22/18 09:39 Dose: 40 meq Potassium Chloride (K-Dur 20 Meq Er Tab) 20 meq PO DAILY [facility] Simethicone (Mylicon Chew Tab) 80 mg PO Q8 [facility] Last Admin: 12/22/18 13:45 Dose: 80 mg - Labs Labs: 12/22/18 07:44 12/22/18 07:44 Attending/Attestation - Attestation I have personally seen and examined this patient.: Yes I have fully participated in the care of the patient.: Yes I have reviewed all pertinent clinical information, including history, physical exam and plan: Yes Notes (Text): 12/22/18 14:50 Patient seen and examined Shortness of breath much improved Being treated for his UTI Potassium supplement Low-dose Lasix
[2018-12-22] MEDS: Enoxaparin 40 mg Syringe SC SCH (09:38)
[2018-12-22] MEDS: Pantoprazole 40 mg EC Tab PO SCH (09:39)
[2018-12-22] MEDS: Potassium Chloride 20 mEq ER Tab PO SCH (09:39)
[2018-12-22] MEDS ORDERED: Potassium Chloride 20 mEq ER Tab PO SCH (13:45)
--- NOTE | 2018-12-22 22:37 | CP.PCM.PN ---
Subjective - Date & Time of Evaluation Date of Evaluation: 12/22/18 Time of Evaluation: 22:37 - Subjective Subjective: CHIEF COMPLAINTS TODAY : afebrile, vss c/o suprapubic pain states her drains were removed. ROS. HEENT : N. Resp : No cough, wheezing ,pleuritic CP ,or hemoptysis Cardio : No anginal CP, PND, orthopnea, palpitation GI : +VE SUPRAPUBIC PAIN , NO n/v ,diarrhea or GI bleeding . ANIMAL RIDES MANAGER : No headache, vertigo, focal deficit. Musculoskel : No joint swelling , Derm : No rash Psych : Normal affect. Ext : No swelling ,calf pain PE. Pt. is alert awake in no distress. V.S As noted in the chart Head ,ear nose,throat and eyes : Normal. Neck : Supple with normal carotids. Lungs: Clear air entry. Heart : S1 & S2 normal with S4. No murmur. Abd : Soft +VE TENDERNESS B/L LOWER QUADRANTS/ AND SUPRAPUBIC, with normal bowel sounds. Neuro : Moves all ext. with no localized deficit. Ext : No edema with intact pulses.Non tender calves Derm : No rashes or decubitus ulcer. LABS/RADIOLOGY: REVIEWED URINE CULTURE ESBL +VE E.COLI S-PIP/TAZO/ ERTAPENEM , MERREM Objective - Vital Signs/Intake and Output Vital Signs (last 24 hours): Temp Pulse Resp BP Pulse Ox 98.2 F 83 20 144/76 95 12/22/18 15:00 12/22/18 15:00 12/22/18 15:00 12/22/18 17:16 12/22/18 15:00 Intake and Output: 12/22/18 12/23/18 18:59 06:59 Intake Total 530 500 Balance 530 500 - Medications Medications: Current Medications Acetaminophen (Tylenol 325mg Tab) 650 mg PO Q6 [facility] Last Admin: 12/22/18 17:16 Dose: Not Given Amlodipine Besylate (Norvasc) 5 mg PO DAILY [facility] Last Admin: 12/22/18 09:39 Dose: 5 mg Diphenhydramine HCl (Benadryl) 25 mg PO HS PRN PRN Reason: Insomnia Last Admin: 12/22/18 22:17 Dose: 25 mg Enoxaparin Sodium (Lovenox) 40 mg SC DAILY [facility] Last Admin: 12/22/18 09:38 Dose: 40 mg BUPIVACAINE 0.125%/0.9% NACL (Bupivacaine-Ns 0.125% On-Q Floor Refinisher) 600 mls @ 4 mls/hr IJ ONCE ONE Stop: 12/24/18 17:19 Last Admin: 12/18/18 12:16 Dose: 4 mls/hr Imipenem/Cilastatin Sodium 500 (mg/ Sodium Chloride) 100 mls @ 100 mls/hr IVPB Q8H [facility]; Protocol Last Admin: 12/22/18 16:01 Dose: 100 mls/hr Ibuprofen (Motrin Tab) 600 mg PO QID [facility] Last Admin: 12/22/18 21:21 Dose: 600 mg Insulin Glargine (Lantus) 25 unit SC HS [facility] Last Admin: 12/22/18 21:53 Dose: Not Given Insulin Human Regular (Novolin R) 0 unit SC ACHS [facility]; Protocol Last Admin: 12/22/18 21:17 Dose: Not Given Insulin Human Regular (Novolin R) 4 unit SC TIDCC [facility] Last Admin: 12/22/18 17:15 Dose: Not Given Metformin HCl (Glucophage) 1,000 mg PO BID [facility] Last Admin: 12/22/18 17:15 Dose: 1,000 mg Metoprolol Tartrate (Lopressor) 50 mg PO DAILY [facility] Last Admin: 12/22/18 09:39 Dose: 50 mg Ondansetron HCl (Zofran Inj) 4 mg IVP Q6H PRN PRN Reason: Nausea/Vomiting Last Admin: 12/19/18 11:54 Dose: 4 mg Oxycodone HCl (Oxycodone Immediate Release Tab) 5 mg PO Q4 PRN PRN Reason: Pain, moderate (4-7) Last Admin: 12/21/18 20:43 Dose: 5 mg Oxycodone HCl (Oxycodone Immediate Release Tab) 10 mg PO Q4 PRN PRN Reason: Pain, severe (8-10) Last Admin: 12/22/18 09:37 Dose: 10 mg Pantoprazole Sodium (Protonix Ec Tab) 40 mg PO DAILY [facility] Last Admin: 12/22/18 09:39 Dose: 40 mg Phenol/Menthol (Phenaseptic 1.4% Throat [place]) 0.5 ml MT Q2H PRN PRN Reason: Other Potassium Chloride (K-Dur 20 Meq Er Tab) 40 meq PO DAILY [facility] Last Admin: 12/22/18 09:39 Dose: 40 meq Simethicone (Mylicon Chew Tab) 80 mg PO Q8 [facility] Last Admin: 12/22/18 21:21 Dose: 80 mg - Labs Labs: 12/22/18 07:44 12/22/18 07:44 Assessment and Plan (1) UTI (urinary tract infection) Status: Acute (2) History of robot-assisted laparoscopic hysterectomy Status: Acute (3) Morbid obesity Status: Acute (4) Diabetes Status: Acute - Assessment and Plan (Free Text) Plan: CONTINUE iv pRIMAXIN 500 MG EVERY 8 HOURLY 12/21/18 GOT iv AMIKACIN 1000 MG iv PIGGYBACK STAT DOSE ON 12/21/18 F/U BLOOD CULTURES 2 SETS 15 MINUTES APART. CASE DISCUSSED WITH THE STAFF.
--- NOTE | 2018-12-23 02:24 | PN ---
DATE: 12/22/2018 SUBJECTIVE: The patient is a 53-year-old female. The patient was seen and examined on the bedside. Daughter was sitting on the bedside also. The patient was seen and examined on the bedside on 12/22/2018, sitting on the chair and looking comfortable. Using pain medications. Sometimes having lower abdominal pain. No fever. No chills. No hematuria or hematochezia. No headache or dizziness. No chest pain. No palpitations. PHYSICAL EXAMINATION: VITAL SIGNS: Temperature 98.2, pulse 98, respiratory rate 20, blood pressure 169/66, pulse oximetry 95%. HEENT: Head: Normocephalic, atraumatic. Eyes: PERRLA. Extraocular movements are intact. Conjunctivae clear. Nose patent. NECK: Supple. No carotid bruits, JVD, or thyromegaly. CHEST: Bilaterally symmetrical. HEART: S1, S2 positive. LUNGS: Clear to auscultation. ABDOMEN: Soft. Bowel sounds present. No organomegaly. EXTREMITIES: No edema. No cyanosis. NEUROLOGIC: The patient is awake, alert. Moving all four extremities. No focal deficits. MEDICATIONS: Tylenol, Norvasc, Benadryl, Lovenox, ibuprofen, metoprolol, Zofran, Protonix. LABORATORY DATA: White blood cell 9.7, hemoglobin 8.9, hematocrit 26, platelets 314. Sodium 136, potassium 3.3, BUN 7, creatinine 0.6, glucose 143. ASSESSMENT AND PLAN: Ms. Deb Canales is a 53-year-old female with anemia, hypokalemia replaced, hyperglycemia, history of diabetes mellitus, hypertension, hypercholesterolemia, polycystic ovarian syndrome, has elective robot hysterectomy, history of low oxygen saturation, 91% on 3 L nasal cannula. Pulmonary consult called for shortness of breath, history of abnormal uterine bleeding, electrolyte imbalance. Continue Lasix. Got a dose of the potassium replaced per the basic metabolic panel , hemoglobin and hematocrit. If hemoglobin drops to 7, we will transfuse blood. There is a minor venous congestion and anemia, has PTRH, will need diuresis, and can be discharged when breathing improves as per Pulmonary. But now the patient has urinary tract infection, getting antibiotics. Culture and sensitivity pending. Urine culture is showing gram negative rods in the urine. The patient denies any fever, chills. The patient does not have any Joyce catheter at present. Continue antibiotics. Repeat labs. Discussion done with the patient and the patient's daughter. We will follow up. Emmy Joy MD MTDSeverino
[2018-12-23] MEDS: Simethicone 80 mg Chewtab PO SCH ×3 (06:19→21:59)
[2018-12-23 07:30] LABS: HEMOGLOBIN 9.1 g/dL (11.0-16.0); MEAN CELL VOLUME 89.8 fL (81.0-99.0); MEAN CORPUSCULAR HEMOGLOBIN 30.9 pg (27.0-31.0); MEAN CORPUSCULAR HGB CONC 34.4 g/dL (33.0-37.0); MEAN PLATELET VOLUME 9.6 fL (7.2-11.7); RBC 2.93 Mil/uL (3.80-5.20); RED CELL DISTRIBUTION WIDTH 13.7 % (11.5-14.5); WHITE BLOOD COUNT 10.2 K/uL (4.8-10.8)
[2018-12-23] MEDS: (Novolin R) Insulin Human Regular 100 units/ml vial SC SCH ×7 (08:45→21:27)
[2018-12-23] MEDS: Pantoprazole 40 mg EC Tab PO SCH (10:15)
[2018-12-23] MEDS: Potassium Chloride 20 mEq ER Tab PO SCH (10:15)
[2018-12-23] MEDS: Enoxaparin 40 mg Syringe SC SCH (10:17)
--- NOTE | 2018-12-23 22:29 | CP.PCM.PN ---
Subjective - Date & Time of Evaluation Date of Evaluation: 12/23/18 Time of Evaluation: 22:29 - Subjective Subjective: CHIEF COMPLAINTS TODAY : afebrile, vss C/O CHILLS THIS AFTERNOON c/o suprapubic pain states her drains were removed. 12/22/18 NOT SURE WHETHER HER B/L ? STENTS WERE REMOVED ROS. HEENT : N. Resp : No cough, wheezing ,pleuritic CP ,or hemoptysis Cardio : No anginal CP, PND, orthopnea, palpitation GI : +VE SUPRAPUBIC PAIN , NO n/v ,diarrhea or GI bleeding . RD MANAGER : No headache, vertigo, focal deficit. Musculoskel : No joint swelling , Derm : No rash Psych : Normal affect. Ext : No swelling ,calf pain PE. Pt. is alert awake in no distress. V.S As noted in the chart Head ,ear nose,throat and eyes : Normal. Neck : Supple with normal carotids. Lungs: Clear air entry. Heart : S1 & S2 normal with S4. No murmur. Abd : Soft +VE TENDERNESS B/L LOWER QUADRANTS/ AND SUPRAPUBIC, with normal bowel sounds. WOUND SITES OK Neuro : Moves all ext. with no localized deficit. Ext : No edema with intact pulses.Non tender calves Derm : No rashes or decubitus ulcer. LABS/RADIOLOGY: REVIEWED URINE CULTURE ESBL +VE E.COLI S-PIP/TAZO/ ERTAPENEM , MERREM Objective - Vital Signs/Intake and Output Vital Signs (last 24 hours): Temp Pulse Resp BP Pulse Ox 97.8 F 83 20 165/80 H 97 12/23/18 15:00 12/23/18 15:00 12/23/18 15:00 12/23/18 15:00 12/23/18 15:00 Intake and Output: 12/23/18 12/24/18 18:59 06:59 Intake Total 580 Balance 580 - Medications Medications: Current Medications Acetaminophen (Tylenol 325mg Tab) 650 mg PO Q6 [facility] Last Admin: 12/23/18 18:02 Dose: 650 mg Amlodipine Besylate (Norvasc) 5 mg PO DAILY [facility] Last Admin: 12/23/18 10:15 Dose: 5 mg Diphenhydramine HCl (Benadryl) 25 mg PO HS PRN PRN Reason: Insomnia Last Admin: 12/22/18 22:17 Dose: 25 mg Enoxaparin Sodium (Lovenox) 40 mg SC DAILY [facility] Last Admin: 12/23/18 10:17 Dose: 40 mg BUPIVACAINE 0.125%/0.9% NACL (Bupivacaine-Ns 0.125% On-Q Accounts Specialist) 600 mls @ 4 mls/hr IJ ONCE ONE Stop: 12/24/18 17:19 Last Admin: 12/18/18 12:16 Dose: 4 mls/hr Imipenem/Cilastatin Sodium 500 (mg/ Sodium Chloride) 100 mls @ 100 mls/hr IVPB Q8H [facility]; Protocol Last Admin: 12/23/18 18:02 Dose: 100 mls/hr Ibuprofen (Motrin Tab) 600 mg PO QID [facility] Last Admin: 12/23/18 21:58 Dose: 600 mg Insulin Glargine (Lantus) 25 unit SC HS [facility] Last Admin: 12/22/18 21:53 Dose: Not Given Insulin Human Regular (Novolin R) 0 unit SC ACHS [facility]; Protocol Last Admin: 12/23/18 21:27 Dose: Not Given Insulin Human Regular (Novolin R) 4 unit SC TIDCC [facility] Last Admin: 12/23/18 18:03 Dose: 4 units Metformin HCl (Glucophage) 1,000 mg PO BID [facility] Last Admin: 12/23/18 18:02 Dose: 1,000 mg Metoprolol Tartrate (Lopressor) 50 mg PO DAILY [facility] Last Admin: 12/23/18 10:15 Dose: 50 mg Ondansetron HCl (Zofran Inj) 4 mg IVP Q6H PRN PRN Reason: Nausea/Vomiting Last Admin: 12/19/18 11:54 Dose: 4 mg Oxycodone HCl (Oxycodone Immediate Release Tab) 5 mg PO Q4 PRN PRN Reason: Pain, moderate (4-7) Last Admin: 12/21/18 20:43 Dose: 5 mg Oxycodone HCl (Oxycodone Immediate Release Tab) 10 mg PO Q4 PRN PRN Reason: Pain, severe (8-10) Last Admin: 12/22/18 09:37 Dose: 10 mg Pantoprazole Sodium (Protonix Ec Tab) 40 mg PO DAILY [facility] Last Admin: 12/23/18 10:15 Dose: 40 mg Phenol/Menthol (Phenaseptic 1.4% Throat [place]) 0.5 ml MT Q2H PRN PRN Reason: Other Potassium Chloride (K-Dur 20 Meq Er Tab) 40 meq PO DAILY [facility] Last Admin: 12/23/18 10:15 Dose: 40 meq Simethicone (Mylicon Chew Tab) 80 mg PO Q8 [facility] Last Admin: 12/23/18 21:59 Dose: 80 mg - Labs Labs: 12/23/18 07:18 12/22/18 07:44 Assessment and Plan (1) UTI (urinary tract infection) Status: Acute (2) History of robot-assisted laparoscopic hysterectomy Status: Acute (3) Morbid obesity Status: Acute (4) Diabetes Status: Acute - Assessment and Plan (Free Text) Plan: Plan: CONTINUE iv pRIMAXIN 500 MG EVERY 8 HOURLY 12/21/18 GOT iv AMIKACIN 1000 MG iv PIGGYBACK STAT DOSE ON 12/21/18 STAT BLOOD CULTURES 2 SETS 15 MINUTES APART TODAYS.12/23/18 STRAIGHT CATHETER UA AND URINE CULTURES12/23/18 K- SUPPLEMENT PER PMD. CASE DISCUSSED WITH THE STAFF MR CASTRO DIGITAL SALES PLANNER/ AND MS GIO VILLARREAL.
[2018-12-23] MEDS: (Lantus) Insulin Glargine, Recombinant SC SCH (22:39)
--- NOTE | 2018-12-24 04:33 | PN ---
DATE: 12/23/2018 SUBJECTIVE: The patient is a 53-year-old female. The patient is seen and examined at the bedside on 12/23/2018. Complaining of chills and suprapubic pain. No headache or dizziness. No chest pain. No palpitation. Complaining about insomnia, very fatigue and tired. PHYSICAL EXAMINATION: VITAL SIGNS: Temperature 97.8, pulse 82, respiratory rate 20, blood pressure 160/87, pulse oximetry 97%. HEENT: Head: Normocephalic and atraumatic. Eyes: PERRLA. Extraocular movements intact. Conjunctivae clear. Nose patent. Mucous membrane moist. NECK: Supple. No carotid bruits. No JVD or thyromegaly. CHEST: Bilaterally symmetrical. HEART: S1 and S2 positive. LUNGS: Clear to auscultation. ABDOMEN: Soft. Bowel sounds present. No organomegaly. EXTREMITIES: No edema. No cyanosis. NEUROLOGIC: The patient is awake, alert. Moving all four extremities. No focal deficits. MEDICATIONS: Tylenol, Norvasc, Benadryl, Lovenox, insulin, metformin. LABORATORY DATA: White blood cells 10.3, hemoglobin 9.1, hematocrit 26.4,platelets 342. Sodium 132, potassium 3.2, BUN 7, creatinine 0.8, and glucose 142. ASSESSMENT AND PLAN: Ms. Deb Canales is a 53-year-old lady with anemia; hypokalemia, replaced; hyperglycemia. Had urinary tract infection. Had a robotic-assisted laparoscopic hysterectomy, morbid obesity, diabetes mellitus, insomnia. Got intravenous amikacin. Stat blood cultures x2, stat in 15 minutes apart today, 12/23/2018 done. Stat catheter urinalysis and urine culture and sensitivity. Potassium replaced. Insomnia, Ambien given. Appreciated Dr. Sutton's input. Repeat labs. We will follow up. Gastrointestinal and deep venous thrombosis prophylaxis. Emmy Joy MD MTDD
[2018-12-24] MEDS: Simethicone 80 mg Chewtab PO SCH ×3 (05:30→21:27)
[2018-12-24] MEDS: (Novolin R) Insulin Human Regular 100 units/ml vial SC SCH ×7 (08:02→21:30)
[2018-12-24 08:20] VITALS: RESP 20
--- NOTE | 2018-12-24 08:23 | CP.PCM.PN ---
Subjective - Date & Time of Evaluation Date of Evaluation: 12/21/18 Time of Evaluation: 13:30 - Subjective Subjective: Delayed entry: pt was seen adn examiend adn sandrorotmichelle doign well. pt much better controlle.d pt ambuiatn, voidng, passing flauts, toerlated diet. Pt with no sob, cp, dizzyness, lighhteadness. Pt with elevated blood glucose being evlauted by endocrine. Objective - Vital Signs/Intake and Output Vital Signs (last 24 hours): Temp Pulse Resp BP Pulse Ox 98.5 F 95 H 18 169/72 H 100 12/24/18 00:38 12/24/18 00:38 12/24/18 00:38 12/24/18 00:38 12/24/18 00:38 Intake and Output: 12/24/18 12/24/18 06:59 18:59 Intake Total 600 Balance 600 - Medications Medications: Current Medications Acetaminophen (Tylenol 325mg Tab) 650 mg PO Q6 [facility] Last Admin: 12/24/18 05:42 Dose: 650 mg Amlodipine Besylate (Norvasc) 5 mg PO DAILY [facility] Last Admin: 12/23/18 10:15 Dose: 5 mg Diphenhydramine HCl (Benadryl) 25 mg PO HS PRN PRN Reason: Insomnia Last Admin: 12/24/18 01:57 Dose: 25 mg Enoxaparin Sodium (Lovenox) 40 mg SC DAILY [facility] Last Admin: 12/23/18 10:17 Dose: 40 mg BUPIVACAINE 0.125%/0.9% NACL (Bupivacaine-Ns 0.125% On-Q [employer]) 600 mls @ 4 mls/hr IJ ONCE ONE Stop: 12/24/18 17:19 Last Admin: 12/18/18 12:16 Dose: 4 mls/hr Imipenem/Cilastatin Sodium 500 (mg/ Sodium Chloride) 100 mls @ 100 mls/hr IVPB Q8H [facility]; Protocol Last Admin: 12/24/18 08:01 Dose: 100 mls/hr Ibuprofen (Motrin Tab) 600 mg PO QID [facility] Last Admin: 12/23/18 21:58 Dose: 600 mg Insulin Glargine (Lantus) 25 unit SC HS [facility] Last Admin: 12/23/18 22:39 Dose: 25 unit Insulin Human Regular (Novolin R) 0 unit SC ACHS [facility]; Protocol Last Admin: 12/24/18 08:02 Dose: 1 u Insulin Human Regular (Novolin R) 4 unit SC TIDCC [facility] Last Admin: 12/24/18 08:02 Dose: 4 units Metformin HCl (Glucophage) 1,000 mg PO BID [facility] Last Admin: 12/23/18 18:02 Dose: 1,000 mg Metoprolol Tartrate (Lopressor) 50 mg PO DAILY [facility] Last Admin: 12/23/18 10:15 Dose: 50 mg Ondansetron HCl (Zofran Inj) 4 mg IVP Q6H PRN PRN Reason: Nausea/Vomiting Last Admin: 12/19/18 11:54 Dose: 4 mg Oxycodone HCl (Oxycodone Immediate Release Tab) 5 mg PO Q4 PRN PRN Reason: Pain, moderate (4-7) Last Admin: 12/21/18 20:43 Dose: 5 mg Oxycodone HCl (Oxycodone Immediate Release Tab) 10 mg PO Q4 PRN PRN Reason: Pain, severe (8-10) Last Admin: 12/22/18 09:37 Dose: 10 mg Pantoprazole Sodium (Protonix Ec Tab) 40 mg PO DAILY [facility] Last Admin: 12/23/18 10:15 Dose: 40 mg Phenol/Menthol (Phenaseptic 1.4% Throat [place]) 0.5 ml MT Q2H PRN PRN Reason: Other Potassium Chloride (K-Dur 20 Meq Er Tab) 40 meq PO DAILY [facility] Last Admin: 12/23/18 10:15 Dose: 40 meq Simethicone (Mylicon Chew Tab) 80 mg PO Q8 [facility] Last Admin: 12/24/18 05:30 Dose: 80 mg Zolpidem Tartrate (Ambien) 5 mg PO HS PRN PRN Reason: Insomnia Last Admin: 12/24/18 00:26 Dose: 5 mg - Labs Labs: 12/23/18 07:18 12/22/18 07:44 - Constitutional Appears: Well - Head Exam Head Exam: ATRAUMATIC, NORMAL INSPECTION - Eye Exam Eye Exam: EOMI - ENT Exam ENT Exam: Mucous Membranes Moist - Neck Exam Neck Exam: Full ROM - Respiratory Exam Respiratory Exam: Clear to Ausculation Bilateral - Cardiovascular Exam Cardiovascular Exam: +S1, +S2 - GI/Abdominal Exam GI & Abdominal Exam: Soft, Normal Bowel Sounds Additional comments: NT, ND, no guarding no reboudn tendner, no rigidty, +BS Incicosn x/ 5 c//d/i On que pump removed no vaignal bleeidng - Extremities Exam Extremities Exam: Full ROM, Normal Inspection Additional comments: negatrive homans sign Assessment and Plan (1) History of robot-assisted laparoscopic hysterectomy Assessment & Plan: s/p TRH, BSO, NANCY, Urethreal catherization with ic green POD #5 -Pain managment -Encourge ambation -SOB: s/p PUlmonary consult, imprving -DM: elevated blood glucse: s/p Endocrine consult pt surgically doing well, waiting for blood glucse stalibation, will refer to primary Status: Acute (2) Diabetes Status: Acute (3) Hypertension Status: Acute (4) Endotracheally intubated Status: Acute
[2018-12-24] MEDS: Potassium Chloride 20 mEq ER Tab PO SCH (10:27)
[2018-12-24] MEDS: Enoxaparin 40 mg Syringe SC SCH (10:27)
[2018-12-24] MEDS: Pantoprazole 40 mg EC Tab PO SCH (10:28)
--- NOTE | 2018-12-24 11:37 | CP.PCM.PN ---
Subjective - Date & Time of Evaluation Date of Evaluation: 12/24/18 Time of Evaluation: 11:37 - Subjective Subjective: CHIEF COMPLAINTS TODAY : afebrile, vss FEELING BETTER ROS. HEENT : N. Resp : No cough, wheezing ,pleuritic CP ,or hemoptysis Cardio : No anginal CP, PND, orthopnea, palpitation GI : +VE SUPRAPUBIC PAIN , NO n/v ,diarrhea or GI bleeding . 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 Musculoskel : No joint swelling , Derm : No rash Psych : Normal affect. Ext : No swelling ,calf pain PE. Pt. is alert awake in no distress. V.S As noted in the chart Head ,ear nose,throat and eyes : Normal. Neck : Supple with normal carotids. Lungs: Clear air entry. Heart : S1 & S2 normal with S4. No murmur. Abd : Soft +VE TENDERNESS B/L LOWER QUADRANTS/ AND SUPRAPUBIC, with normal bowel sounds. WOUND SITES OK Neuro : Moves all ext. with no localized deficit. Ext : No edema with intact pulses.Non tender calves Derm : No rashes or decubitus ulcer. LABS/RADIOLOGY: REVIEWED URINE CULTURE ESBL +VE E.COLI S-PIP/TAZO/ ERTAPENEM , MERREM Objective - Vital Signs/Intake and Output Vital Signs (last 24 hours): Temp Pulse Resp BP Pulse Ox 98.2 F 104 H 20 173/84 H 98 12/24/18 08:19 12/24/18 08:19 12/24/18 08:19 12/24/18 08:19 12/24/18 08:19 Intake and Output: 12/24/18 12/24/18 06:59 18:59 Intake Total 600 Balance 600 - Medications Medications: Current Medications Acetaminophen (Tylenol 325mg Tab) 650 mg PO Q6 [facility] Last Admin: 12/24/18 11:30 Dose: 650 mg Amlodipine Besylate (Norvasc) 5 mg PO DAILY [facility] Last Admin: 12/24/18 10:27 Dose: 5 mg Diphenhydramine HCl (Benadryl) 25 mg PO HS PRN PRN Reason: Insomnia Last Admin: 12/24/18 01:57 Dose: 25 mg Enoxaparin Sodium (Lovenox) 40 mg SC DAILY [facility] Last Admin: 12/24/18 10:27 Dose: 40 mg BUPIVACAINE 0.125%/0.9% NACL (Bupivacaine-Ns 0.125% On-Q [employer]) 600 mls @ 4 mls/hr IJ ONCE ONE Stop: 12/24/18 17:19 Last Admin: 12/18/18 12:16 Dose: 4 mls/hr Imipenem/Cilastatin Sodium 500 (mg/ Sodium Chloride) 100 mls @ 100 mls/hr IVPB Q8H [facility]; Protocol Last Admin: 12/24/18 08:01 Dose: 100 mls/hr Ibuprofen (Motrin Tab) 600 mg PO QID [facility] Last Admin: 12/24/18 10:27 Dose: 600 mg Insulin Glargine (Lantus) 25 unit SC HS [facility] Last Admin: 12/23/18 22:39 Dose: 25 unit Insulin Human Regular (Novolin R) 0 unit SC ACHS [facility]; Protocol Last Admin: 12/24/18 11:31 Dose: 2 u Insulin Human Regular (Novolin R) 4 unit SC TIDCC [facility] Last Admin: 12/24/18 11:32 Dose: 4 units Metformin HCl (Glucophage) 1,000 mg PO BID [facility] Last Admin: 12/24/18 10:28 Dose: 1,000 mg Metoprolol Tartrate (Lopressor) 50 mg PO DAILY [facility] Last Admin: 12/24/18 10:28 Dose: 50 mg Ondansetron HCl (Zofran Inj) 4 mg IVP Q6H PRN PRN Reason: Nausea/Vomiting Last Admin: 12/19/18 11:54 Dose: 4 mg Oxycodone HCl (Oxycodone Immediate Release Tab) 5 mg PO Q4 PRN PRN Reason: Pain, moderate (4-7) Last Admin: 12/21/18 20:43 Dose: 5 mg Pantoprazole Sodium (Protonix Ec Tab) 40 mg PO DAILY [facility] Last Admin: 12/24/18 10:28 Dose: 40 mg Phenol/Menthol (Phenaseptic 1.4% Throat [place]) 0.5 ml MT Q2H PRN PRN Reason: Other Potassium Chloride (K-Dur 20 Meq Er Tab) 40 meq PO DAILY [facility] Last Admin: 12/24/18 10:27 Dose: 40 meq Simethicone (Mylicon Chew Tab) 80 mg PO Q8 [facility] Last Admin: 12/24/18 05:30 Dose: 80 mg Zolpidem Tartrate (Ambien) 5 mg PO HS PRN PRN Reason: Insomnia Last Admin: 12/24/18 00:26 Dose: 5 mg - Labs Labs: 12/23/18 07:18 12/22/18 07:44 Assessment and Plan (1) UTI (urinary tract infection) Status: Acute (2) History of robot-assisted laparoscopic hysterectomy Status: Acute (3) Morbid obesity Status: Acute (4) Diabetes Status: Acute - Assessment and Plan (Free Text) Plan: CONTINUE iv pRIMAXIN 500 MG EVERY 8 HOURLY 12/21/18 GOT iv AMIKACIN 1000 MG iv PIGGYBACK STAT DOSE ON 12/21/18 F/U BLOOD CULTURES 2 SETS 15 MINUTES APART 12/23/18 F/U UA AND URINE CULTURES 12/23/18 K- SUPPLEMENT PER PMD. CASE DISCUSSED WITH PMD.
[2018-12-24] MEDS: (Lantus) Insulin Glargine, Recombinant SC SCH (21:27)
--- NOTE | 2018-12-24 22:04 | CP.PCM.PN ---
Subjective - Date & Time of Evaluation Date of Evaluation: 12/24/18 Time of Evaluation: 07:10 - Subjective Subjective: uncontrolled IDDM Objective - Vital Signs/Intake and Output Vital Signs (last 24 hours): Temp Pulse Resp BP Pulse Ox 97.9 F 83 20 148/93 H 97 12/24/18 15:00 12/24/18 15:00 12/24/18 15:00 12/24/18 15:00 12/24/18 15:00 Intake and Output: 12/24/18 12/25/18 18:59 06:59 Intake Total 500 600 Balance 500 600 - Medications Medications: Current Medications Acetaminophen (Tylenol 325mg Tab) 650 mg PO Q6 [facility] Last Admin: 12/24/18 17:31 Dose: 650 mg Amlodipine Besylate (Norvasc) 5 mg PO DAILY [facility] Last Admin: 12/24/18 10:27 Dose: 5 mg Diphenhydramine HCl (Benadryl) 25 mg PO HS PRN PRN Reason: Insomnia Last Admin: 12/24/18 01:57 Dose: 25 mg Enoxaparin Sodium (Lovenox) 40 mg SC DAILY [facility] Last Admin: 12/24/18 10:27 Dose: 40 mg Imipenem/Cilastatin Sodium 500 (mg/ Sodium Chloride) 100 mls @ 100 mls/hr IVPB Q8H [facility]; Protocol Last Admin: 12/24/18 16:33 Dose: 100 mls/hr Ibuprofen (Motrin Tab) 600 mg PO QID [facility] Last Admin: 12/24/18 21:26 Dose: 600 mg Insulin Glargine (Lantus) 25 unit SC HS [facility] Last Admin: 12/24/18 21:27 Dose: 25 units Insulin Human Regular (Novolin R) 0 unit SC ACHS [facility]; Protocol Last Admin: 12/24/18 21:30 Dose: Not Given Insulin Human Regular (Novolin R) 4 unit SC TIDCC [facility] Last Admin: 12/24/18 16:37 Dose: Not Given Metformin HCl (Glucophage) 1,000 mg PO BID [facility] Last Admin: 12/24/18 17:31 Dose: 1,000 mg Metoprolol Tartrate (Lopressor) 50 mg PO DAILY [facility] Last Admin: 12/24/18 10:28 Dose: 50 mg Ondansetron HCl (Zofran Inj) 4 mg IVP Q6H PRN PRN Reason: Nausea/Vomiting Last Admin: 12/19/18 11:54 Dose: 4 mg Oxycodone HCl (Oxycodone Immediate Release Tab) 5 mg PO Q4 PRN PRN Reason: Pain, moderate (4-7) Last Admin: 12/21/18 20:43 Dose: 5 mg Pantoprazole Sodium (Protonix Ec Tab) 40 mg PO DAILY [facility] Last Admin: 12/24/18 10:28 Dose: 40 mg Phenol/Menthol (Phenaseptic 1.4% Throat [place]) 0.5 ml MT Q2H PRN PRN Reason: Other Potassium Chloride (K-Dur 20 Meq Er Tab) 40 meq PO DAILY [facility] Last Admin: 12/24/18 10:27 Dose: 40 meq Simethicone (Mylicon Chew Tab) 80 mg PO Q8 [facility] Last Admin: 12/24/18 21:27 Dose: 80 mg Zolpidem Tartrate (Ambien) 5 mg PO HS PRN PRN Reason: Insomnia Last Admin: 12/24/18 00:26 Dose: 5 mg - Labs Labs: 12/23/18 07:18 12/22/18 07:44 Assessment and Plan (1) Diabetes mellitus, insulin dependent (IDDM), uncontrolled Assessment & Plan: Endocrine consult reason for consult: uncontrolled diabetes Source: patient and chart review Ms. Canales is 53 y/o admitted for fibroid surgery s/p robotic Total hysterectomy on antibiotics as per pt. has DM 2009 (+) neuropathy , (-) retinopathy , (-) nephropathy (-) CAD (-) PVD outpatient diabetes management regimen : lantus 40 units bid ,metformin 1g po bid endocrine consult called yesterday glucose 300's , insulin regimen was adjusted blood glucose log :127-150 to 200 NO hypoglycemia Allergy NKDA Past medical history:HTN , hyperlipidemia , fibroid , cataract Past surgical history: CS , heart surgery as a child & MAXIM BSO Psychiatry history: h/o anxiety off meds Social history: denies smoking , ETOH use 0r illicit drug use Family history: mother with dm ROS: Constitutional: denies fever, tiredness/weakness. HEENT: denies earache, change in voice .Respiratory: denies cough, sob . CVS :no chest pain, no palpitations . Abdomen: no abdominal pain, no nausea /vomiting, no change bowel movement. 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 Extremities: no edema, no tremors. Skin: no itching, no rash Physical exam Well-developed AAO x3 , ,NAD VSS HEENT: norm cephalic, atraumatic, no lid lag , no exophthalmos NECK: supple, no palpable lymphadenopathy THYROID: no palpable thyromegaly, not tender CHEST: fair air entry, bilateral, CVS: S1,S2 ABDOMEN: bowel sound present, benign, obese, no wide purple striae , no bruises EXTREMITIES: no edema, clubbing or cyanosis, no palpable hand tremors Skin: acanthosis nigricans -lab: tsh 2.27 , ft3 2.48 , ft4 1.26 , a1c 11.4 , cmp wnl Assessment: uncontrolled IDDM with neuropathy euthyroid sick syndrom obesity , morbid s/p total hystrectomy for uterine fibroid plan : continue Lantus 25 units @ hs contuinue Novoloin R low dose coverage tid & hs , give half of the coverage s dose @ bed time continue novoloin R 4 units tid with meals if eat > 60% continue metformin 1g po bid with meals we will follow with you. Manuel Rubio # [phone] office Fridays & Saturdays address: [address] [place] [address] ,phone # [phone] ,FAX [phone] Status: Acute (2) Diabetes mellitus with neurological manifestations, uncontrolled Status: Acute (3) Morbid obesity Status: Acute (4) History of robot-assisted laparoscopic hysterectomy Status: Acute (5) Euthyroid sick syndrome Status: Acute
--- NOTE | 2018-12-25 04:01 | PN ---
DATE: 12/24/2018 SUBJECTIVE: The patient is a 53-year-old female. The patient was seen and examined at the bedside on 12/24/2018. Looking comfortable. No fever. No chills. No hematuria or hematochezia. No headache or dizziness. No chest pain. No palpitations. No more chills. Lower abdominal pain is better. PHYSICAL EXAMINATION: VITAL SIGNS: Temperature is 98.2, pulse 104, respiratory rate 20, blood pressure 173/84, pulse oximetry 98%. HEENT: Head: Normocephalic, atraumatic. Eyes: PERRLA. Extraocular movements are intact. Conjunctivae clear. Nose patent. Mucous membranes moist. NECK: Supple. No carotid bruits. No JVD or thyromegaly. CHEST: Bilaterally symmetrical. HEART: S1, S2 positive. LUNGS: Clear to auscultation. ABDOMEN: Soft. Bowel sounds present. No organomegaly. EXTREMITIES: No edema. No cyanosis. NEUROLOGICAL: The patient is awake and alert, moving all four extremities. No focal deficits. MEDICATIONS: Tylenol, Norvasc, Benadryl, Lovenox, Motrin, insulin, oxycodone, simethicone. LABORATORY DATA: White blood cell 7.2, hemoglobin 9.1, hematocrit 26.4, platelets 343. Sodium 136, potassium 3.3, BUN 7, creatinine 0.3, glucose 143. ASSESSMENT AND PLAN: Ms. Deb Canales is a 53-year-old lady with anemia, hypokalemia, hyperglycemia, urinary tract infection, history of robotic-assisted laparoscopic hysterectomy, morbid obesity, diabetes mellitus. Waiting for the sensitivity. As per Infectious Disease, continue antibiotics. Diabetes is uncontrolled. Seen by Dr. Manuel Haddad, crematorium operator. There is no suggestion in her notes. The patient was seen by Dr. Marline Edwards also. The patient is ambulating and voiding, passing flatus, and tolerating diet. Electrolyte imbalance, we will fix that. Pain management. Waiting for blood glucose sensitivity. Repeat labs. We will follow up. Emmy Joy MD
[2018-12-25] MEDS: Simethicone 80 mg Chewtab PO SCH ×2 (05:27→13:35)
[2018-12-25 06:47] LABS: HEMOGLOBIN 9.4 g/dL (11.0-16.0); MEAN CELL VOLUME 88.3 fL (81.0-99.0); MEAN CORPUSCULAR HEMOGLOBIN 30.3 pg (27.0-31.0); MEAN CORPUSCULAR HGB CONC 34.3 g/dL (33.0-37.0); MEAN PLATELET VOLUME 9.1 fL (7.2-11.7); RBC 3.1 Mil/uL (3.80-5.20); RED CELL DISTRIBUTION WIDTH 13.9 % (11.5-14.5); WHITE BLOOD COUNT 10.2 K/uL (4.8-10.8)
[2018-12-25] MEDS: oxyCODONE 5 mg Immediate Release Tab PO PRN (07:24)
[2018-12-25] MEDS: (Novolin R) Insulin Human Regular 100 units/ml vial SC SCH ×4 (07:30→12:33)
[2018-12-25 07:36] VITALS: O2SAT 98
--- NOTE | 2018-12-25 08:23 | OP ---
PROCEDURE DATE: 12/16/2018 PREOPERATIVE DIAGNOSES: Pelvic pain, abnormal uterine bleeding, pelvic pressure and bladder pain. POSTOPERATIVE DIAGNOSES: Pelvic pain, abnormal uterine bleeding, pelvic pressure and bladder pain with extensive pelvic and abdominal adhesions. PROCEDURES: Photo-robotic hysterectomy more than 250 g, multifibroids, myomectomy, bilateral salpingo-oophorectomy. Extensive lysis of adhesions, both omental and bladder adhesions bilaterally, ureterolysis, cystoscopy with bilateral ureteral catheterization with IC-Green. SURGEON: Marline Edwards MD [employer] SUPERVISOR: RICHELLE Epperson TYPE OF ANESTHESIA: General endotracheal. FINDINGS: Enlarged 20-week size more than 250 g multifibroid uterus, 12 cm myoma, 8 cm myoma with normal fallopian tubes and ovaries. Bladder adhesions to lower uterine segments. Extensive omental adhesions to the abdominal wall, pelvic sidewall adhesions. Chacha Amador was the surgical instruments inspector, present for the entire case, essential in gaining robotic entry laparoscopically, helping to insert instrument, manipulating the HUMI uterine manipulator and removing the specimens, closing all areas, obtaining hemostasis, lysing adhesions and was present for the entire case. SPECIMENS REMOVED: Uterus with myoma of cervix, right and left fallopian tubes and ovaries. ESTIMATED BLOOD LOSS: 250 mL. BLOOD PRODUCTS: None. COMPLICATIONS: None. DESCRIPTION OF PROCEDURE: The patient was taken to the operating room, where she was given general anesthesia. Once it was found to be adequate, she was positioned on the operating table in dorsal lithotomy position with legs supported using stirrups. The patient was then prepped and draped in the usual sterile fashion. The patient was given preoperative prophylactic antibiotics. Following this, after the patient and prepped and draped, the time-out was correctly performed. Initially, a cystoscopy was inserted into the urethra and there were bilateral ureteral jets noted. There were no gross masses noted. There were bilateral ureteral jets noted. Ureteral catheterization was obtained using the stent which was inserted to the appropriate ernesto and 5 mL of IC-Green was inserted. This was also done on the contralateral side. The cystoscope was then removed and the Joyce catheter there was inserted. Following this, a Smith retractor was placed in the anterior and posterior fornix of the vagina. The cervix was then visualized, the uterus and the anterior lip of the cervix. The uterus was then sounded to 10 cm. Following this, the uterus was sequentially dilated. The large VCare device was then inserted and insufflated with air. It was then appropriately inserted as per clean energy policy analyst's instructions. The tenaculum was removed, the Smith retractor was removed. The patient's legs were then repositioned. The surgeon then re-gloved and attention was then turned to the abdomen. Approximately 5 cm superior to the umbilicus, the patient was given local anesthetic and an 8 mm skin incision was made. Two S-retractors were then inserted to visualize the fascia and the fascia was packed using a clamp. The fascia was then incised with the scalpel and the trocar was then carefully inserted. There was normal opening pressure noted and the laparoscope was then inserted. There was no bowel injury, no complications, no bleeding noted. At that point, there was noted to be extensive adhesions noted. An 8-mm port was placed in the right and left lower quadrant and an accessory port was placed in the left upper quadrant at 12 mm. An additional 8-mm port was placed on the right side under local anesthetic. The omental adhesions were carefully lysed using the LigaSure device. This took about 1.5 hours. After the adhesions were removed, the uterus was then visualized and was noted to be enlarged with multiple fibroids and also bladder adhesions. After that point, the operative Da Krystyna robot had been docked. There was a monopolar scissor in arm 3, bipolar in 1 and a grasper in 4. There were more adhesions noted draped over the uterus of the omentum which was carefully lysed in clear areas and there was good hemostasis noted in another hour of dissection. Following this, the left fallopian tube and left ovary were identified. After careful dissection, the IP ligament was identified and there were adhesions noted to the lateral pelvic sidewall in which the IC-Green was used to help with ureterolysis. Once the adhesions were carefully removed and the ureter was carefully identified, the IP ligament was ligated carefully and transected. The round ligament was then carefully cauterized and transected and the anterior portion of the bladder flap was then dissected clearly. Bladder adhesions were then carefully dissected in clear space using the monopolar scissors and there was good hemostasis noted. There were extensive adhesions up to one hour. On the contralateral side, the bladder flap was carried through to the right side and again, the right ureter was carefully dissected prior to cauterization of the IP ligament. The round ligament was cauterized and cut. At that point, the uterine arteries were meticulously dissected and cauterized using the vessel-sealer device. There were multiple vessels noted as there was enlarged myomas, 12 cm and 8 cm myoma underlined posterior. After careful hemostasis obtained, a colpotomy was performed using monopolar scissors onto the VCare device. The green cup was identified and carefully dissected. After the complete colpotomy had been removed, uterus was unable to be removed from the vagina due to the enlarged specimen. The two myomas had been carefully removed after being held up with the tenaculum and carefully dissected. The myomas were attached, however, carefully to allow to be easily removed and the uterus was carefully bivalved and the specimen was able to be removed through the vagina. At that point, a was then placed into the vagina to help pneumoperitoneum. The abdomen was thoroughly irrigated and there was good hemostasis noted. At that point, a barbed suture was used to close the vaginal cuff using the IC-Green to make sure that the ureters were not present. There was good hemostasis noted and the abdomen was carefully irrigated and again, there was thorough inspection of all operative sites. . There were no complications noted. At that point after the extensive procedure, the pneumoperitoneum was then released and there was good hemostasis noted. All operative ports were removed under direct visualization with good hemostasis noted. The supraumbilical incision fascia was reapproximated and closed using two S-retractors and the UR-6 0 Vicryl. The accessory port site fascia had also been closed in a similar fashion. All skin incisions were closed with 4-0 Monocryl in nice subcuticular fashion. Abdomen was cleaned and island dressings were applied. At that point, the Joyce catheter had been removed, the in vagina had removed. The cystoscope was reintroduced and there were bilateral ureteric jets noted. At the end of the procedure, all needle, sponge, and instrument counts were noted and correct x2. The patient tolerated the procedure well and was transferred to the recovery room in stable condition. Marline Edwards MD [facility] # [id number]
[2018-12-25] MEDS: Enoxaparin 40 mg Syringe SC SCH (09:55)
[2018-12-25] MEDS: Pantoprazole 40 mg EC Tab PO SCH (09:56)
[2018-12-25 10:51] LABS: ALB/GLOB RATIO 0.9 (1.0-2.1); ALBUMIN 2.5 g/dL (3.5-5.0); ALT/SGPT < 6 U/L (9-52); AST/SGOT 12 U/L (14-36); BLOOD UREA NITROGEN 7 mg/dL (7-17); CALCIUM 8.2 mg/dl (8.6-10.4); GFR NON-AFRICAN AMERICAN > 60
--- NOTE | 2018-12-25 11:24 | CP.PCM.PN ---
Subjective - Date & Time of Evaluation Date of Evaluation: 12/25/18 Time of Evaluation: 11:24 - Subjective Subjective: CHIEF COMPLAINTS TODAY : afebrile, vss FEELING BETTER DENIES ABDOMINAL PAIN ROS. HEENT : N. Resp : No cough, wheezing ,pleuritic CP ,or hemoptysis Cardio : No anginal CP, PND, orthopnea, palpitation GI : -VE SUPRAPUBIC PAIN , NO n/v ,diarrhea or GI bleeding . SECURITY ATTENDANT : No headache, vertigo, focal deficit. Musculoskel : No joint swelling , Derm : No rash Psych : Normal affect. Ext : No swelling ,calf pain PE. Pt. is alert awake in no distress. V.S As noted in the chart Head ,ear nose,throat and eyes : Normal. Neck : Supple with normal carotids. Lungs: Clear air entry. Heart : S1 & S2 normal with S4. No murmur. Abd : Soft with normal bowel sounds.NO TENDERNESS WOUND SITES OK Neuro : Moves all ext. with no localized deficit. Ext : No edema with intact pulses.Non tender calves Derm : No rashes or decubitus ulcer. LABS/RADIOLOGY: REVIEWED URINE CULTURE ESBL +VE E.COLI S-PIP/TAZO/ ERTAPENEM , MERREM REPEAT URINE CULTURES -VE REPEAT BLOOD CULTURES -VE TODATE Objective - Vital Signs/Intake and Output Vital Signs (last 24 hours): Temp Pulse Resp BP Pulse Ox 98.0 F 100 H 20 164/85 H 98 12/25/18 07:00 12/25/18 07:00 12/25/18 07:00 12/25/18 07:00 12/25/18 07:00 Intake and Output: 12/25/18 12/25/18 06:59 18:59 Intake Total 600 Balance 600 - Medications Medications: Current Medications Acetaminophen (Tylenol 325mg Tab) 650 mg PO Q6 [facility] Last Admin: 12/25/18 00:12 Dose: Not Given Amlodipine Besylate (Norvasc) 5 mg PO DAILY [facility] Last Admin: 12/25/18 09:55 Dose: 5 mg Diphenhydramine HCl (Benadryl) 25 mg PO HS PRN PRN Reason: Insomnia Last Admin: 12/24/18 23:34 Dose: 25 mg Enoxaparin Sodium (Lovenox) 40 mg SC DAILY [facility] Last Admin: 12/25/18 09:55 Dose: 40 mg Imipenem/Cilastatin Sodium 500 (mg/ Sodium Chloride) 100 mls @ 100 mls/hr IVPB Q8H [facility]; Protocol Last Admin: 12/25/18 08:59 Dose: 100 mls/hr Ibuprofen (Motrin Tab) 600 mg PO QID [facility] Last Admin: 12/25/18 09:56 Dose: 600 mg Insulin Glargine (Lantus) 25 unit SC HS [facility] Last Admin: 12/24/18 21:27 Dose: 25 units Insulin Human Regular (Novolin R) 0 unit SC ACHS [facility]; Protocol Last Admin: 12/25/18 07:30 Dose: Not Given Insulin Human Regular (Novolin R) 4 unit SC TIDCC [facility] Last Admin: 12/25/18 08:00 Dose: Not Given Metformin HCl (Glucophage) 1,000 mg PO BID [facility] Last Admin: 12/25/18 09:55 Dose: 1,000 mg Metoprolol Tartrate (Lopressor) 50 mg PO DAILY [facility] Last Admin: 12/25/18 09:55 Dose: 50 mg Ondansetron HCl (Zofran Inj) 4 mg IVP Q6H PRN PRN Reason: Nausea/Vomiting Last Admin: 12/19/18 11:54 Dose: 4 mg Oxycodone HCl (Oxycodone Immediate Release Tab) 5 mg PO Q4 PRN PRN Reason: Pain, moderate (4-7) Last Admin: 12/25/18 07:24 Dose: 5 mg Pantoprazole Sodium (Protonix Ec Tab) 40 mg PO DAILY [facility] Last Admin: 12/25/18 09:56 Dose: 40 mg Phenol/Menthol (Phenaseptic 1.4% Throat [place]) 0.5 ml MT Q2H PRN PRN Reason: Other Potassium Chloride (K-Dur 20 Meq Er Tab) 40 meq PO DAILY [facility] Last Admin: 12/24/18 10:27 Dose: 40 meq Simethicone (Mylicon Chew Tab) 80 mg PO Q8 [facility] Last Admin: 12/25/18 05:27 Dose: 80 mg Zolpidem Tartrate (Ambien) 5 mg PO HS PRN PRN Reason: Insomnia Last Admin: 12/24/18 23:34 Dose: 5 mg - Labs Labs: 12/25/18 06:38 12/25/18 10:01 Assessment and Plan (1) UTI (urinary tract infection) Status: Acute (2) History of robot-assisted laparoscopic hysterectomy Status: Acute (3) Morbid obesity Status: Acute (4) Diabetes Status: Acute - Assessment and Plan (Free Text) Plan: DC iv pRIMAXIN 500 MG EVERY 8 HOURLY 12/21/18 OK TO D/C PT PER PMD. NO FURTHER ABX PT TO CALL IF FEVERS RETURN /OR NOT FEELING WELL. CASE DISCUSSED WITH PMD/ CHEMIST INSTRUMENTATION MR CASTRO.
[2018-12-25] MEDS: Potassium Chloride 20 mEq ER Tab PO SCH (11:25)
--- NOTE | 2018-12-25 12:14 | CP.PCM.PN ---
Subjective - Date & Time of Evaluation Date of Evaluation: 12/25/18 Time of Evaluation: 12:14 - Subjective Subjective: PATIENT SEEN AND EXAMINED AT THE BEDSIDE Objective - Vital Signs/Intake and Output Vital Signs (last 24 hours): Temp Pulse Resp BP Pulse Ox 98.0 F 100 H 20 164/85 H 98 12/25/18 07:00 12/25/18 07:00 12/25/18 07:00 12/25/18 07:00 12/25/18 07:00 Intake and Output: 12/25/18 12/25/18 06:59 18:59 Intake Total 600 Balance 600 - Medications Medications: Current Medications Acetaminophen (Tylenol 325mg Tab) 650 mg PO Q6 [facility] Last Admin: 12/25/18 00:12 Dose: Not Given Amlodipine Besylate (Norvasc) 5 mg PO DAILY [facility] Last Admin: 12/25/18 09:55 Dose: 5 mg Diphenhydramine HCl (Benadryl) 25 mg PO HS PRN PRN Reason: Insomnia Last Admin: 12/24/18 23:34 Dose: 25 mg Enoxaparin Sodium (Lovenox) 40 mg SC DAILY [facility] Last Admin: 12/25/18 09:55 Dose: 40 mg Imipenem/Cilastatin Sodium 500 (mg/ Sodium Chloride) 100 mls @ 100 mls/hr IVPB Q8H [facility]; Protocol Last Admin: 12/25/18 08:59 Dose: 100 mls/hr Ibuprofen (Motrin Tab) 600 mg PO QID [facility] Last Admin: 12/25/18 09:56 Dose: 600 mg Insulin Glargine (Lantus) 25 unit SC HS [facility] Last Admin: 12/24/18 21:27 Dose: 25 units Insulin Human Regular (Novolin R) 0 unit SC ACHS [facility]; Protocol Last Admin: 12/25/18 07:30 Dose: Not Given Insulin Human Regular (Novolin R) 4 unit SC TIDCC [facility] Last Admin: 12/25/18 08:00 Dose: Not Given Metformin HCl (Glucophage) 1,000 mg PO BID [facility] Last Admin: 12/25/18 09:55 Dose: 1,000 mg Metoprolol Tartrate (Lopressor) 50 mg PO DAILY [facility] Last Admin: 12/25/18 09:55 Dose: 50 mg Ondansetron HCl (Zofran Inj) 4 mg IVP Q6H PRN PRN Reason: Nausea/Vomiting Last Admin: 12/19/18 11:54 Dose: 4 mg Oxycodone HCl (Oxycodone Immediate Release Tab) 5 mg PO Q4 PRN PRN Reason: Pain, moderate (4-7) Last Admin: 12/25/18 07:24 Dose: 5 mg Pantoprazole Sodium (Protonix Ec Tab) 40 mg PO DAILY [facility] Last Admin: 12/25/18 09:56 Dose: 40 mg Phenol/Menthol (Phenaseptic 1.4% Throat [place]) 0.5 ml MT Q2H PRN PRN Reason: Other Potassium Chloride (K-Dur 20 Meq Er Tab) 40 meq PO DAILY [facility] Last Admin: 12/25/18 11:25 Dose: 40 meq Simethicone (Mylicon Chew Tab) 80 mg PO Q8 [facility] Last Admin: 12/25/18 05:27 Dose: 80 mg Zolpidem Tartrate (Ambien) 5 mg PO HS PRN PRN Reason: Insomnia Last Admin: 12/24/18 23:34 Dose: 5 mg - Labs Labs: 12/25/18 06:38 12/25/18 10:01 Assessment and Plan - Assessment and Plan (Free Text) Assessment: FOLLOW UP WITH DR MCMILLAN IN HER OFFICE NEXT WEEK THURSDAY FOLLOW WITH PMD FOLLOW UP WITH DR GABRIEL IN HER OFFICE ----CALL FOR APPOINTMENT CONTINUE HOME MEDICATION NEW PRESCRIPTION GIVEN KDUR 20 MEQ PO DAILY ACTIVITY TOLERATED CALL DR MCMILLAN OR GO TO THE EMERGENCY ROOM IF SYMPTOM RETURN OR WORSENING
[2018-12-25 13:22] VITALS: BP 148/71; PULSE 80; TEMP 98.1
== END 2018-12-25 13:45 | disposition home or self-care (01) | DRG 742 ==
LOC: C.SDS 07:03 → C.9I 18:55 → C.5S 12-20 11:00
PROVIDERS: ADMIT Internal Medicine; ATTEND Internal Medicine
PROC: 0UT74ZZ Resection of Bilateral Fallopian Tubes, Percutaneous Endoscopic Approach (ICD-10-PCS; 2018-12-16)
PROC: 0UT24ZZ Resection of Bilateral Ovaries, Percutaneous Endoscopic Approach (ICD-10-PCS; 2018-12-16)
PROC: 0T788DZ Dilation of Bilateral Ureters with Intraluminal Device, Via Natural or Artificial Opening Endoscopic (ICD-10-PCS; 2018-12-16)
PROC: 8E0W4CZ Robotic Assisted Procedure of Trunk Region, Percutaneous Endoscopic Approach (ICD-10-PCS; 2018-12-16)
PROC: 5A1935Z Respiratory Ventilation, Less than 24 Consecutive Hours (ICD-10-PCS; 2018-12-16)
PROC: 0UT94ZZ Resection of Uterus, Percutaneous Endoscopic Approach (ICD-10-PCS; principal; 2018-12-16 09:00)
PROC: 0DNU4ZZ Release Omentum, Percutaneous Endoscopic Approach (ICD-10-PCS; 2018-12-16 09:00)
DX: D25.9 Leiomyoma of uterus, unspecified (principal); N80.0 Endometriosis of uterus; E28.2 Polycystic ovarian syndrome; N83.12 Corpus luteum cyst of left ovary; N73.6 Female pelvic peritoneal adhesions (postinfective); J96.90 Respiratory failure, unspecified, unspecified whether with hypoxia or hypercapnia; J98.11 Atelectasis; N39.0 Urinary tract infection, site not specified; N83.8 Other noninflammatory disorders of ovary, fallopian tube and broad ligament; N93.9 Abnormal uterine and vaginal bleeding, unspecified; R10.2 Pelvic and perineal pain; B96.20 Unspecified Escherichia coli [E. coli] as the cause of diseases classified elsewhere; E11.40 Type 2 diabetes mellitus with diabetic neuropathy, unspecified; E87.6 Hypokalemia; E11.65 Type 2 diabetes mellitus with hyperglycemia; E87.8 Other disorders of electrolyte and fluid balance, not elsewhere classified; D64.9 Anemia, unspecified; I10 Essential (primary) hypertension; E78.5 Hyperlipidemia, unspecified; E78.00 Pure hypercholesterolemia, unspecified; G47.00 Insomnia, unspecified; E66.01 Morbid (severe) obesity due to excess calories; Z79.4 Long term (current) use of insulin; Z98.891 History of uterine scar from previous surgery; Z83.3 Family history of diabetes mellitus